=== PATIENT | female | born 1975 | race Caucasian/White ===

== ENCOUNTER 2020-02-14 10:50 | Outpatient (REF) | payer OTHER, SELFPAY ==
[2020-02-14 11:09] LABS: COVID-19 Test Negative (Negative)
== END 2020-02-14 10:51 | disposition home or self-care (01) ==
LOC: HO.LAB 10:50
PROVIDERS: Visit Provider Internal Medicine
DX: Z20.828 Contact with and (suspected) exposure to other viral communicable diseases (principal)
CPT/HCPCS: 87635

== ENCOUNTER 2020-02-20 10:56 | Outpatient (REF) | payer OTHER, SELFPAY ==
[2020-02-20 11:25] LABS: COVID-19 Test Negative (Negative)
== END 2020-02-20 10:57 | disposition home or self-care (01) ==
LOC: HO.LAB 10:56
PROVIDERS: Visit Provider Internal Medicine
DX: Z20.828 Contact with and (suspected) exposure to other viral communicable diseases (principal)
CPT/HCPCS: 87635

== ENCOUNTER 2020-02-24 12:46 | Outpatient (REF) | payer OTHER, SELFPAY ==
[2020-02-24 13:53] LABS: COVID-19 Test Negative (Negative)
== END 2020-02-24 12:47 | disposition home or self-care (01) ==
LOC: HO.LAB 12:46
PROVIDERS: PCP Internal Medicine; Visit Provider Internal Medicine
DX: Z20.828 Contact with and (suspected) exposure to other viral communicable diseases (principal)
CPT/HCPCS: 87635

== ENCOUNTER 2020-04-08 10:28 | Outpatient (REF) | payer OTHER, SELFPAY ==
[2020-04-08 10:48] LABS: COVID-19 Test Negative (Negative)
== END 2020-04-08 10:29 | disposition home or self-care (01) ==
LOC: HO.EMPCOV 10:28
PROVIDERS: Visit Provider Internal Medicine
DX: Z20.828 Contact with and (suspected) exposure to other viral communicable diseases (principal)
CPT/HCPCS: 87635; C9803

== ENCOUNTER 2020-05-12 10:24 | Outpatient (REF) | payer OTHER, SELFPAY ==
[2020-05-12 10:41] LABS: COVID-19 Test Negative (Negative); IDNOW Serial# 55D5AD1C
== END 2020-05-12 10:25 | disposition home or self-care (01) ==
LOC: HO.EMPCOV 10:24
PROVIDERS: Visit Provider Internal Medicine
DX: Z20.822 Contact with and (suspected) exposure to COVID-19 (principal)
CPT/HCPCS: 36415; 87635; C9803

== ENCOUNTER 2020-06-13 10:42 | Outpatient (REF) | payer OTHER, SELFPAY ==
[2020-06-13 11:17] LABS: MANUAL DIFF FLAG NO
[2020-06-13 11:19] LABS: Basophils Absolute Auto 0.1 X10*3/uL (0.0-0.2); Basophils Percent Auto 0.7 % (0-2); Eosinophils Absolute Auto 0.3 X10*3/uL (0.0-0.4); Hematocrit 43.5 % (37-47); Hemoglobin 14.9 g/dl (12.0-16.0); Imm Gran Abs Auto 0.02 X10*3/uL (0.00-0.03); Imm Gran Pct Auto 0.2 % (0.0-0.4); Lymphocytes Absolute Auto 1.9 X10*3/uL (1.2-4.9); Lymphocytes Percent Auto 23.9 % (20-40); Mean Corpuscular HGB Conc 34.3 g/dl (31.0-35.0); Mean Corpuscular Hemoglobin 30.8 pg (27.0-33.0); Mean Corpuscular Volume 89.9 fL (80-98); Monocytes Absolute Auto 0.4 X10*3/uL (0.1-1.2); Monocytes Percent Auto 5.5 % (2-11); Neutrophils Absolute Auto 5.3 X10*3/uL (2.0-8.3); Neutrophils Percent Auto 65.7 % (45-73); Platelet Count 302 X10*3/uL (160-400); Red Blood Count 4.84 X10*6/uL (4.20-5.50); Red Cell Distribution Width 13.4 % (11.0-16.0)
[2020-06-13 11:28] LABS: INTERNATIONAL NORM RATIO 1.1 (0.9-1.1); Prothrombin Time 12.7 SEC (10.8-13.0)
[2020-06-13 11:30] LABS: Partial Thromboplastin Time 38.9 SEC (24.1-38.0)
== END 2020-06-13 10:43 | disposition home or self-care (01) ==
LOC: HO.LAB 10:42
PROVIDERS: PCP Internal Medicine; Visit Provider Internal Medicine
DX: T14.8XXA Other injury of unspecified body region, initial encounter (principal)
CPT/HCPCS: 36415; 85025; 85610; 85730

== ENCOUNTER 2020-07-17 16:25 | Outpatient (REF) | payer OTHER, SELFPAY ==
--- NOTE | ~2020-07-17 | XR_ITS ---
EXAMINATION: XR ABDOMEN KUB CLINICAL INDICATION: Constipation COMPARISON: None TECHNIQUE: AP view of the abdomen. FINDINGS: There is stool throughout the colon suggestive of constipation. No dilated loops of bowel are seen. There is no evidence of free air. There are surgical clips in the right upper quadrant suggestive of previous cholecystectomy. There are small calcifications in the pelvis probably representing calcified phleboliths.. Bony structures are normal. XR/XR KUB IMPRESSION: Stool throughout the colon suggestive of constipation.
== END 2020-07-17 16:26 | disposition home or self-care (01) ==
LOC: HO.LAB 16:25
PROVIDERS: Visit Provider Physician Assistant Medical
DX: K59.00 Constipation, unspecified (principal); R10.9 Unspecified abdominal pain
CPT/HCPCS: 74018

== ENCOUNTER 2021-03-02 14:28 | Outpatient (REF) | payer OTHER, SELFPAY ==
[2021-03-02 15:05] LABS: COVID-19 Test Negative (Negative); IDNOW Serial# 9DD0AD1C
== END 2021-03-02 14:29 | disposition home or self-care (01) ==
LOC: HO.ED 14:28
PROVIDERS: Visit Provider Internal Medicine
DX: Z20.822 Contact with and (suspected) exposure to COVID-19 (principal)
CPT/HCPCS: 36415; 87635

== ENCOUNTER 2021-03-06 11:13 | Outpatient (REF) | payer OTHER, SELFPAY ==
[2021-03-06 12:53] LABS: Influenza A PCR NEGATIVE (Negative); Influenza B PCR NEGATIVE (Negative); Resp Syncy Virus RNA Qual PCR NEGATIVE (Negative); SARS COV2 PCR INHOUSE NEGATIVE (Negative)
== END 2021-03-06 11:14 | disposition home or self-care (01) ==
LOC: HO.LAB 11:13
PROVIDERS: Visit Provider Internal Medicine
DX: Z20.822 Contact with and (suspected) exposure to COVID-19 (principal)
CPT/HCPCS: 0241U; 36415

== ENCOUNTER 2021-03-24 13:07 | Outpatient (REF) | payer OTHER, SELFPAY ==
--- NOTE | ~2021-03-24 | XR_ITS ---
EXAMINATION: XR CHEST CLINICAL INFORMATION: Persistent cough. Asthma. COMPARISON: Previous chest x-ray July 2019 TECHNIQUE: 2 views of the chest were obtained. FINDINGS: No significant abnormality is noted involving the heart, lungs, mediastinum, bony thorax or soft tissues. XR/XR chest 2V IMPRESSION: Unremarkable examination.
== END 2021-03-24 13:08 | disposition home or self-care (01) ==
LOC: HO.XRAY 13:07
PROVIDERS: PCP Internal Medicine; Visit Provider Internal Medicine
DX: J32.9 Chronic sinusitis, unspecified (principal); R05.3 Chronic cough; R07.89 Other chest pain; R00.2 Palpitations; R53.82 Chronic fatigue, unspecified; G43.909 Migraine, unspecified, not intractable, without status migrainosus; R16.0 Hepatomegaly, not elsewhere classified; Z20.89 Contact with and (suspected) exposure to other communicable diseases; J45.909 Unspecified asthma, uncomplicated
CPT/HCPCS: 71046

== ENCOUNTER 2021-03-24 13:44 | Outpatient (REF) | payer OTHER, SELFPAY ==
[2021-03-24 13:50] LABS: MANUAL DIFF FLAG NO
[2021-03-24 13:57] LABS: Basophils Absolute Auto 0.1 X10*3/uL (0.0-0.2); Basophils Percent Auto 0.5 % (0-2); Eosinophils Absolute Auto 0.4 X10*3/uL (0.0-0.4); Eosinophils Percent Auto 3.7 % (0-4); Hematocrit 43.6 % (37.0-47.0); Hemoglobin 14.8 g/dl (12.0-16.0); Imm Gran Abs Auto 0.03 X10*3/uL (0.00-0.03); Imm Gran Pct Auto 0.3 % (0.0-0.4); Lymphocytes Absolute Auto 2.5 X10*3/uL (1.2-4.9); Lymphocytes Percent Auto 21.2 % (20-40); Mean Corpuscular HGB Conc 33.9 g/dl (31.0-35.0); Mean Corpuscular Hemoglobin 31.1 pg (27.0-33.0); Mean Corpuscular Volume 91.6 fL (80.0-98.0); Mean Platelet Volume 9.8 fL (9.4-12.3); Monocytes Absolute Auto 0.6 X10*3/uL (0.1-1.2); Monocytes Percent Auto 5.4 % (2-11); Neutrophils Absolute Auto 8.1 x10*3/uL (2.0-8.3); Neutrophils Percent Auto 68.9 % (45-73); Platelet Count 284 X10*3/uL (160-400); Red Blood Count 4.76 X10*6/uL (4.20-5.50); Red Cell Distribution Width 13.1 % (11.0-16.0); White Blood Count 11.8 X10*3/uL (4.8-10.8)
[2021-03-24 14:47] LABS: Alanine Aminotransferase 20 U/L (0-31); Alkaline Phosphatase 51 U/L (39-117); Anion Gap 13 (12-20); Aspartate Amino Transferase 19 U/L (5-31); Bilirubin Total 0.3 mg/dL (0.0-1.0); Blood Urea Nitrogen 25 mg/dL (9-16); C Reactive Protein 0.18 mg/dL (< or = 0.50); Carbon Dioxide 23 mmol/L (22-29); Chloride 108 mmol/L (96-108); Estimated Glomerular Filt Rate > 60; Glucose Random 92 mg/dL (60-115); Potassium 4.1 mmol/L (3.3-5.1); Sodium 140 mmol/L (135-145); Total Protein 6.5 g/dL (6.5-8.0)
[2021-03-24 15:08] LABS: Thyroid Stimulating Hormone 2.83 uIU/mL (0.32-4.0)
[2021-03-31 11:31] LABS: SARS COV2 IgG Negative (Negative)
== END 2021-03-24 13:45 | disposition home or self-care (01) ==
LOC: HO.LNP 13:44
PROVIDERS: Visit Provider Internal Medicine
DX: Z20.822 Contact with and (suspected) exposure to COVID-19 (principal); R07.89 Other chest pain; R00.2 Palpitations
CPT/HCPCS: 80053; 84443; 85025; 86140; 86769

== ENCOUNTER → 2021-04-05 09:51 | Outpatient (REF) | payer OTHER, SELFPAY ==
--- NOTE | 2021-04-05 09:56 | ECG_ITS ---
Hook-up date: 2021-04-05 11:11:00 Duration: 47:33:00 Test Indications: PALPITATIONS, CHEST PRESSURE Medications: [id number] QRS complexes 1 Ventricular ectopics which represent <1 % of total QRS comp. 1 Supraventricular ectopics which represent <1 % of total QRS comp. * Paced QRS complexs which represent % of total QRS comp. VENTRICULAR ECTOPY 1 Isolated 0 Bigeminal Cycles 0 Couplets 0 Runs 0 Beats in Runs * Beats LONGEST at * BPM at :: -- * Beats FASTEST at * BPM at :: -- SUPRAVENTRICULAR ECTOPY 1 Isolated 0 Couplets 0 Runs 0 Beats in Runs * Beats LONGEST at * BPM at :: -- * Beats FASTEST at * BPM at :: -- HEART RATES 50 MIN at 01:17:47 2021-04-06 73 AVG 128 MAX at 14:21:03 2021-04-05 LONGEST RR 1.5520 secs at 05:56:19 2021-04-06 S-T LEVELS Channel 1 - 128 mm at 11:11:00 2021-04-05 - 128 mm at 11:11:00 2021-04-05 Channel 2 - 128 mm at 11:11:00 2021-04-05 - 128 mm at 11:11:00 2021-04-05 Channel 3 - 128 mm at 03:03:01 -- - 128 mm at 03:03:01 Underlying rhythm is sinus; Average ventricular rate 73/min; range 50-128/min; No significant supraventricular or ventricular ectopy; No sustained arrhythmias; Patient did not report any symptoms in the diary Referred By: Meghan Terry Overread By: EFE PINO
--- NOTE | 2021-04-05 09:56 | CA_ITS ---
Acquisition Time: 2021-04-05 10:04:27 Total Exercise Time: 00:10:44 Test Indications: CP, SVT Medications: SEE CHART Protocol: EYAL Max HR: 179 BPM 103% of Pred: 173 BPM Max BP: 206/090 mmHG Max Work Load: 12.9 METS Exercise stress test with exercise 10 min 44 sec of Eyal protocol, with 2/10 mid chest pressure at baseline which she states is always there , her CP increased to 4/20 during stage 4 of exercise, with isolated PAC, with hypertensive response to exercise with max BP 206/90, with EKG changes that meet criteria for ischemia in stage 4 only while she was jogging ( horizontal ST depressions up to 1 mm V3-V6) , which corrects immediately in recovery. Artifact can't be ruled out. In recovery her CP returned to 2/10 and BP returned to 124/74. Test reviewed with Dr Hernandez. Report called to her PCP office and recommended stress echocardiogram for further evaluation, Referred By: Meghan Terry Overread By: NANY CH
== END ==
LOC: HO.CARD 09:51
PROVIDERS: Visit Provider Internal Medicine
DX: R07.89 Other chest pain (principal); R00.2 Palpitations
CPT/HCPCS: 93017; 93226

== ENCOUNTER 2021-04-20 15:44 | Outpatient (REF) | payer OTHER, SELFPAY ==
--- NOTE | 2021-04-20 | PFT_ITS ---
INDICATION: Asthma and cough. SPIROMETRY: The FEV1 to FVC of 89% with an FEV1 of 3.06 L, which is 94% predicted and an FVC of 3.45 L, which is 84% predicted. No significant response to bronchodilators noted. Maximum voluntary ventilation 89% predicted. LUNG VOLUMES: Total lung capacity 82% predicted with a residual volume of 65% predicted, and an expiratory reserve volume of 63% predicted. DIFFUSION CAPACITY: DLCO 81% predicted. COMPARISONS: None. INTERPRETATION: No obstructive nor restrictive ventilatory defects identified. No significant response to bronchodilators noted. Normal maximum voluntary ventilation. Lung volumes are low normal, so therefore occult interstitial lung conditions cannot be ruled out. In addition to that, the patient does have a low normal diffusion capacity. If asthma is in the differential, methacholine challenge may be helpful in assessing for hyper-reactive airways, otherwise clinical correlation warranted. Octavio Garcia MD MR/MODL / [id number]
== END 2021-04-20 15:45 | disposition home or self-care (01) ==
LOC: HO.RESP 15:44
PROVIDERS: PCP Internal Medicine; Visit Provider Internal Medicine
DX: R05.3 Chronic cough (principal); J45.909 Unspecified asthma, uncomplicated
CPT/HCPCS: 94060; 94727; 94729

== ENCOUNTER 2021-04-30 15:42 | Outpatient (REF) | payer OTHER, SELFPAY ==
[2021-04-30 16:07] LABS: COVID-19 Test Negative (Negative)
== END 2021-04-30 15:43 | disposition home or self-care (01) ==
LOC: HO.LAB 15:42
PROVIDERS: Visit Provider Internal Medicine
DX: Z20.822 Contact with and (suspected) exposure to COVID-19 (principal)
CPT/HCPCS: 36415; 87635

== ENCOUNTER → 2021-05-11 10:36 | Outpatient (REF) | payer OTHER, SELFPAY ==
--- NOTE | 2021-05-11 11:00 | CA_ITS ---
Acquisition Time: 2021-05-11 10:44:11 Total Exercise Time: 00:09:46 Test Indications: CP Medications: SEE CHART Protocol: EYAL Max HR: 171 BPM 98% of Pred: 173 BPM Max BP: 194/088 mmHG Max Work Load: 11.3 METS . Exercise stress test with exercise 9 min 46 sec of Eyal protocol, without anginal symptoms, with isolated PACs and atrial cuplets and triplets noted in recovery, one PVC, with normotensive response to exercise with max BP 194/88, with EKG changes noted during stage 4 of exercise that are suggesting of ischemia however can't rule out artifactual changes, without EKG changes meeting crtieria for ischemia at 29 sec of recovery or in remainder of recovery. Echo images obtained by tech at rest and immediately post peak exercise. Definity contrast used. Test reviewed with Dr Govea Referred By: Meghan Terry Overread By: NANY CH
== END ==
LOC: HO.CARD 10:36
PROVIDERS: Visit Provider Internal Medicine
DX: R07.89 Other chest pain (principal); R94.39 Abnormal result of other cardiovascular function study
CPT/HCPCS: 93350; Q9957

== ENCOUNTER → 2021-06-23 09:24 | Outpatient (BNVA) | payer OTHER, SELFPAY | PROVIDERS: PCP Internal Medicine; Visit Provider Internal Medicine Cardiovascular Disease | DX: E78.5 Hyperlipidemia, unspecified (principal); R07.9 Chest pain, unspecified | CPT/HCPCS: 93005 ==

== ENCOUNTER 2021-08-02 09:57 | Outpatient (REF) | payer OTHER, SELFPAY ==
[2021-08-02 11:17] LABS: Alanine Aminotransferase 21 U/L (0-31); Albumin Level 4.3 g/dL (3.5-5.0); Alkaline Phosphatase 49 U/L (39-117); Anion Gap 12 (12-20); Aspartate Amino Transferase 17 U/L (5-31); Bilirubin Total 0.7 mg/dL (0.0-1.0); Blood Urea Nitrogen 19 mg/dL (9-16); Calcium 9.6 mg/dL (8.4-10.2); Carbon Dioxide 26 mmol/L (22-29); Chloride 104 mmol/L (96-108); Cholesterol 256 mg/dL; Estimated Glomerular Filt Rate > 60; Glucose Random 84 mg/dL (60-115); HDL Cholesterol 66 mg/dL; LDL Cholesterol Calculated 179 mg/dl; Potassium 4.1 mmol/L (3.3-5.1); Sodium 138 mmol/L (135-145); Triglycerides 58 mg/dL
[2021-08-02 11:24] LABS: Thyroid Stimulating Hormone 2.63 uIU/mL (0.32-4.0)
== END 2021-08-02 09:58 | disposition home or self-care (01) ==
LOC: HO.LAB 09:57
PROVIDERS: PCP Internal Medicine; Visit Provider Student in an Organized Health Care Education/Training Program
DX: Z00.00 Encounter for general adult medical examination without abnormal findings (principal); R63.5 Abnormal weight gain
CPT/HCPCS: 36415; 80053; 80061; 84443

== ENCOUNTER 2021-08-16 11:02 | Outpatient (REF) | payer OTHER, SELFPAY ==
--- NOTE | ~2021-08-16 | MR_ITS ---
EXAMINATION: MR ABDOMEN WITHOUT AND WITH CONTRAST CLINICAL INFORMATION: Follow up hepatic adenoma. COMPARISON: MR abdomen dated from 05/17/2019. TECHNIQUE: MR abdomen was performed without and with use of 9 mL intravenous Gadavist gadolinium contrast. Postcontrast images are performed in multiphase dynamic sequences. Imaging was performed in 3 planes. FINDINGS: LUNG BASES: The visualized lung bases are unremarkable. LIVER, GALLBLADDER, AND BILIARY TREE: The liver is normal in size, shape and attenuation. Very small cysts in the hepatic dome (100:22) and right hepatic lobe (100:40) are unchanged. No new liver lesions. The gallbladder is not visualized and presumably surgically removed. There is stable mild dilatation of the CBD measuring up to 0.8 cm, which is expected in a postcholecystectomy state. There is no significant intrahepatic biliary ductal dilatation. PANCREAS: Unremarkable. SPLEEN: Normal. ADRENAL GLANDS: Normal. KIDNEYS AND URETERS: The kidneys are normal in size, shape, and enhance symmetrically. No hydronephrosis. No perinephric stranding. GASTROINTESTINAL TRACT: Imaged bowel is within normal limits. No ascites. ABDOMINAL WALL: No significant hernia is appreciated. LYMPH NODES: No lymphadenopathy. VASCULAR: Unremarkable. OSSEOUS STRUCTURES: Marrow signal normal. MR/MR abdomen wo/w con IMPRESSION: Stable examination when compared to 05/17/2019 with redemonstration of very small liver cysts.
== END 2021-08-16 11:03 | disposition home or self-care (01) ==
LOC: HO.MRI 11:02
PROVIDERS: Visit Provider Student in an Organized Health Care Education/Training Program
DX: D13.4 Benign neoplasm of liver (principal)
CPT/HCPCS: 74183; A9585

== ENCOUNTER 2021-12-06 10:52 | Outpatient (REF) | payer OTHER, SELFPAY ==
[2021-12-06 11:35] LABS: Appearance Urine CLEAR; Color Urine YELLOW; Glucose Urine UA NEG (NEG); Leukocyte Esterase Urine NEG (NEG); Nitrite Urine NEG (NEG); Urine Blood NEG (NEG); Urine Ketones NEG (NEG); Urine Protein NEG (NEG-TRACE)
[2021-12-06 11:47] LABS: COVID-19 Test Negative (Negative)
== END 2021-12-06 10:53 | disposition home or self-care (01) ==
LOC: HO.LAB 10:52
PROVIDERS: Visit Provider Physician Assistant Medical
DX: R09.89 Other specified symptoms and signs involving the circulatory and respiratory systems (principal); R30.0 Dysuria; Z20.822 Contact with and (suspected) exposure to COVID-19
CPT/HCPCS: 81003; 87635; C9803

== ENCOUNTER 2022-01-28 10:28 | Outpatient (REF) | payer OTHER, SELFPAY ==
[2022-01-28 12:30] LABS: MANUAL DIFF FLAG NO
[2022-01-28 12:36] LABS: Basophils Absolute Auto 0.1 X10*3/uL (0.0-0.2); Basophils Percent Auto 0.9 % (0-2); Eosinophils Absolute Auto 0.3 X10*3/uL (0.0-0.4); Eosinophils Percent Auto 3.3 % (0-4); Hematocrit 45.9 % (37.0-47.0); Hemoglobin 15.6 g/dl (12.0-16.0); Imm Gran Abs Auto 0.02 X10*3/uL (0.00-0.03); Imm Gran Pct Auto 0.2 % (0.0-0.4); Lymphocytes Absolute Auto 2.2 X10*3/uL (1.2-4.9); Lymphocytes Percent Auto 25.1 % (20-40); Mean Corpuscular Hemoglobin 30.5 pg (27.0-33.0); Mean Corpuscular Volume 89.6 fL (80.0-98.0); Mean Platelet Volume 9.9 fL (9.4-12.3); Monocytes Absolute Auto 0.6 X10*3/uL (0.1-1.2); Monocytes Percent Auto 6.7 % (2-11); Neutrophils Absolute Auto 5.7 x10*3/uL (2.0-8.3); Neutrophils Percent Auto 63.8 % (45-73); Platelet Count 379 X10*3/uL (160-400); Red Blood Count 5.12 X10*6/uL (4.20-5.50); Red Cell Distribution Width 13.6 % (11.0-16.0); White Blood Count 8.9 X10*3/uL (4.8-10.8)
[2022-01-28 12:41] LABS: Appearance Urine Clear; Color Urine Yellow; Glucose Urine UA Negative (Negative); Leukocyte Esterase Urine Negative (Negative); Nitrite Urine Negative (Negative); Specific Gravity - Urine 1.025 (1.005-1.025); Urine Blood Negative (Negative); Urine Ketones 15 mg/dL (Negative); Urine Protein Negative (Neg-Trace)
[2022-01-28 13:23] LABS: Alanine Aminotransferase 22 U/L (0-31); Albumin Level 4.2 g/dL (3.5-5.0); Alkaline Phosphatase 54 U/L (39-117); Anion Gap 16 (12-20); Aspartate Amino Transferase 23 U/L (5-31); Bilirubin Total 0.5 mg/dL (0.0-1.0); Blood Urea Nitrogen 15 mg/dL (9-16); Calcium 9.2 mg/dL (8.4-10.2); Carbon Dioxide 23 mmol/L (22-29); Chloride 103 mmol/L (96-108); Estimated Glomerular Filt Rate > 60; Glucose Random 74 mg/dL (60-115); Potassium 4.1 mmol/L (3.3-5.1); Sodium 138 mmol/L (135-145); Total Protein 6.8 g/dL (6.5-8.0)
== END 2022-01-28 10:29 | disposition home or self-care (01) ==
LOC: HO.LAB 10:28
PROVIDERS: Visit Provider Internal Medicine
DX: R39.9 Unspecified symptoms and signs involving the genitourinary system (principal); N39.0 Urinary tract infection, site not specified; R10.9 Unspecified abdominal pain
CPT/HCPCS: 36415; 80053; 81003; 85025; 87086

== ENCOUNTER 2022-02-17 17:50 | Outpatient (REF) | payer OTHER, SELFPAY ==
--- NOTE | ~2022-02-17 | MR_ITS ---
EXAMINATION: MR LUMBAR SPINE WITHOUT CONTRAST CLINICAL INFORMATION: 46-year-old with self-reported low back pain and right hip pain. Low back pain, lumbar radiculopathy. Self-reported remote history of disc herniation. COMPARISON: None. TECHNIQUE: MRI of the lumbar spine was obtained using routine sequences without contrast. FINDINGS: Coronal Alignment: Very slight thoracolumbar levocurvature noted, minimally convex to the left at L1-L2. Sagittal Alignment: Trace retrolisthesis at L5-S1. Otherwise normal lumbar alignment. Lumbosacral Junction: Normal. 5 [id number] lumbar-type vertebral bodies. Vertebral Bodies: Normal height. Disc Spaces and Endplates: Severe disc space height loss at L5-S1 noted with Schmorl's nodes, disc desiccation and spondylosis. Remaining lumbar vertebral discs demonstrate normal height and signal. Moderate disc space height loss noted anteriorly at T11-T12 with the anterior marginal spondylosis at this level. Spinal Canal: No abnormal developmental findings. Bone Marrow: Type I degenerative marrow signal change seen along the endplates anteriorly at L5-S1 and T11-T12. No suspicious marrow replacing process is identified. Conus Medullaris: Terminates at L1. Morphology and signal is normal. Intradural Nerve Roots: Within normal limits. L5-S1: Diffuse disc bulge and a small superimposed central to left paramedian disc herniation noted, with mild flattening of the ventral dural sac. No significant facet arthrosis, canal or neural foraminal stenosis. L4-L5: Tiny central disc protrusion noted with minimal indentation of the ventral thecal sac superimposed on minimal underlying disc bulging, with moderate bilateral facet arthrosis. No significant canal or neural foraminal stenosis. L3-L4: Small, shallow bilateral subarticular to foraminal disc protrusions without neural impingement and mild facet arthrosis noted bilaterally without canal or neural foraminal stenosis. L2-L3: Trace central disc protrusion noted. No facet arthrosis, canal or neural foraminal stenosis. L1-L2: Normal disc contour. No facet arthrosis, canal or neural foraminal stenosis. T12-L1: Small left paramedian disc herniation noted. No facet arthrosis, canal or neural foraminal stenosis. [id number] facet arthropathy right more than left at T11-T12. Paraspinal/Retroperitoneal: Visualized paravertebral soft tissues appear unremarkable. MR/MR lumbar spine wo con IMPRESSION: 1. Discogenic degenerative changes and spondylosis at L5-S1 and to a lesser degree at T11-T12, with the mild disc bulging and central disc herniation at L5-S1, minimal disc bulging and central disc protrusion at L4-L5, trace central disc protrusion L2-L3 and shallow bilateral subarticular to foraminal disc protrusions at L3-L4 without spinal canal stenosis or significant neural foraminal compromise. No neural impingement. 2. Multilevel bilateral facet arthropathy, as detailed above, most apparent at L4-L5 bilaterally.
== END 2022-02-17 17:51 | disposition home or self-care (01) ==
LOC: HO.MRI 17:50
PROVIDERS: Visit Provider Internal Medicine
DX: M54.16 Radiculopathy, lumbar region (principal); R20.2 Paresthesia of skin; R26.2 Difficulty in walking, not elsewhere classified
CPT/HCPCS: 72148

== ENCOUNTER 2022-03-23 12:39 | Outpatient (REF) | payer OTHER, SELFPAY ==
--- NOTE | ~2022-03-23 | MM_ITS ---
EXAMINATION: MM SCREENING DIGITAL BREAST TOMOSYNTHESIS, BILATERAL CLINICAL INFORMATION: Screening. Asymptomatic. The lifetime risk of breast cancer based on the Tyrer-Cuzick Model is 8.0%. COMPARISON: Mammography: May 22, 2018 and studies dating back to September 20, 2016. TECHNIQUE: Digital breast tomosynthesis is performed in both the craniocaudal and mediolateral oblique views along with computer-aided detection (CAD). Synthesized 2D images are generated from the tomosynthesis. FINDINGS: There are scattered areas of fibroglandular density (ACR BI-RADS breast composition Category b). There is a stable parenchymal pattern of the left breast. Within the inferior aspect of the right breast approximately 3 cm from nipple there is an 8 mm circumscribed density which may have been present previously. Spot compression view is recommended. About the upper outer aspect of the right breast there is a lobular density measuring approximately 5 mm in diameter not definitely seen previously and for which spot compression view is recommended. MM/MM tomosynthesis screening BI IMPRESSION: Right breast densities for further evaluation as described. ASSESSMENT: BI-RADS 0: Incomplete - Need Additional Imaging Evaluation RECOMMENDATION: 1. Additional views of the right breast 2. Targeted ultrasound if warranted after review of the additional views. 3. Radiology department staff will contact the patient for additional imaging. This patient's information was entered into a reminder system with a target due date for their next mammogram.
== END 2022-03-23 12:40 | disposition home or self-care (01) ==
LOC: HO.MAMMO 12:39
PROVIDERS: Visit Provider Internal Medicine
DX: Z12.31 Encounter for screening mammogram for malignant neoplasm of breast (principal)
CPT/HCPCS: 77063; 77067

== ENCOUNTER 2022-04-27 13:08 | Outpatient (REF) | payer OTHER, SELFPAY ==
--- NOTE | ~2022-04-27 | MM_ITS ---
EXAMINATION: MM DIAGNOSTIC DIGITAL BREAST TOMOSYNTHESIS, RIGHT US BREAST TARGETED, RIGHT CLINICAL INFORMATION: Two right breast densities. COMPARISON: Mammography: 03/23/2022 and studies dating back to 09/20/2016. TECHNIQUE: Digital breast tomosynthesis is performed. 2D images are generated from the tomosynthesis. The following views are obtained: Spot compression views in craniocaudal and mediolateral oblique views of the right breast. FINDINGS: There are scattered areas of fibroglandular density (ACR BI-RADS breast composition Category b). Within the anterior aspect of the right breast is a question of persistence of a partially circumscribed density measuring 6 x 7 x 4 mm in size approximately 3 cm from the nipple inferiorly. It is difficult to tell whether this may be overlying vessels and parenchyma. Adjacent to this there is a 3 mm well-circumscribed rounded density. About the upper outer aspect of the right breast there is persistence of an approximately 4 x 4 mm circumscribed density adjacent to a 3 mm rounded well-circumscribed density along a vessel approximately 6 cm from the nipple. Ultrasound of the right breast demonstrated a normal-appearing lymph node 11 o'clock position 8 cm from the nipple without cortical thickening or lobulation. At approximately the 9 o'clock position 3 cm from the nipple there are a few adjacent cysts without internal vasculature and with smooth back kirby and increased through sound transmission. These measure approximately 6 x 5 x 4 mm in size combined. There are a few other small scattered cysts present. About the inferior aspect of the right breast a few ducts were seen however no abnormal cystic or solid mass is seen and no region of abnormal distal sound shadowing was identified. Results are discussed with the patient at time of visit. Six-month follow-up right breast mammogram suggested. MM/MM tomosynthesis added views R IMPRESSION: Circumscribed density about the upper outer aspect of the right breast appear to correspond to cysts. Density about the anterior inferior aspect of the right breast does not have an ultrasound correlate and may be a parenchymal density rather than a true mass. Six-month follow-up right breast mammogram suggested to ensure stability. ASSESSMENT: BI-RADS 3: Probably Benign. RECOMMENDATION: Diagnostic mammography in 6 months. This patient's information was entered into a reminder system with a target due date for their next mammogram.
== END 2022-04-27 13:09 | disposition home or self-care (01) ==
LOC: HO.MAMMO 13:08
PROVIDERS: Visit Provider Internal Medicine
DX: R92.8 Other abnormal and inconclusive findings on diagnostic imaging of breast (principal)
CPT/HCPCS: 76642; 77061; 77065

== ENCOUNTER 2022-05-18 06:07 | Outpatient (REF) | payer OTHER, SELFPAY ==
--- NOTE | ~2022-05-18 | FL_ITS ---
EXAMINATION: XR FLUOROSCOPY WITH IMAGES CLINICAL INFORMATION: Spondylosis without myelopathy or radiculopathy lumbar region. COMPARISON: MR lumbar spine of 02/17/2022. TECHNIQUE: Fluoroscopy Supervised By: Dr. Kirt Montalvo. Fluoroscopy Time: 0.1 minutes. Cumulative Dose: 3.32 mGy. DAP: 0.542 Gycm2. Images: 2. FINDINGS: Imaging demonstrates 3 needles adjacent to the right facet joints at L4-S1. FL/FL guidance in treatment room IMPRESSION: Intraoperative fluoroscopy for pain management procedure.
== END 2022-05-18 06:08 | disposition home or self-care (01) ==
LOC: CF 06:07
PROVIDERS: Visit Provider Internal Medicine
DX: M47.816 Spondylosis without myelopathy or radiculopathy, lumbar region (principal)
CPT/HCPCS: 64493; 64494; J3301

== ENCOUNTER → 2022-05-20 11:35 | Outpatient (BNVA) | payer OTHER, SELFPAY | PROVIDERS: PCP Internal Medicine; Visit Provider Internal Medicine | DX: Z13.89 Encounter for screening for other disorder (principal) ==

== ENCOUNTER 2022-06-22 15:16 | Day surgery (SDC) | payer OTHER, SELFPAY ==
--- NOTE | ~2022-06-22 | FL_ITS ---
EXAMINATION: XR FLUOROSCOPY WITH IMAGES CLINICAL INFORMATION: L3, L4, and L5 medial branch radiofrequency ablation. COMPARISON: 05/22/2022. TECHNIQUE: Fluoroscopy Supervised By: Dr. Kirt Montalvo. Fluoroscopy Time: 0.3 minutes. Cumulative Dose: 7.04 mGy. DAP: 0.874 Gycm2. Images: 3. FINDINGS: Imaging demonstrates needles placed about the right lateral aspect of the L3-L4, L4-L5, and L5-S1 disc space levels. FL/FL guidance in OR IMPRESSION: Intraoperative fluoroscopy for pain management procedure.
[2022-06-22 11:27] VITALS: BP 165/95; PULSE 69; RESP 16; TEMP 36.4; O2SAT 99
[2022-06-22 11:31] VITALS: BMI 30.4
[2022-06-22 12:18] VITALS: BP 140/77; PULSE 62; RESP 16; TEMP 37; O2SAT 98
--- NOTE | 2022-06-22 12:57 | MHC.SHP ---
Pre-Procedural Eval Section A Date of Service: 06/22/22 The patient is an INPATIENT: No Changes since office visit: Yes Patient answered all questions The History & Physical has been completed within 30 days and I have reviewed it.: No Section B Chief Complaint: Spondylosis without myelopathy or radiculopathy, Relevant Family History (Specify if Yes): No Relevant Social History: Other (specify) Present Medications: see Short Stay Collaborative assessment Medical History: No relevant PMH History of Previous Operations: No relevant previous surgery Allergies: Allergies Allergy/AdvReac Type Severity Reaction Status Date / Time metoclopramide [From Reglan] Allergy Severe Anaphylaxis Verified 06/22/22 11:34 codeine [CODEINE] Allergy Unknown RASH Verified 06/22/22 11:34 gabapentin [GABAPENTIN] Allergy Unknown DIFFICULTY Verified 06/22/22 11:34 SWALLOWING ketamine [KETAMINE] Allergy Unknown COMBATIVE/A Verified 06/22/22 11:34 GITATION/DAMON LLUCIONATIO NS latex [LATEX] Allergy Unknown ANAPHYLAXIS Verified 06/22/22 11:34 magnesium [MAGNESIUM] Allergy Unknown MUSCLE Verified 06/22/22 11:34 SPASM prochlorperazine Allergy Unknown SEIZURE Verified 06/22/22 11:34 [From COMPAZINE] promethazine [From PHENERGAN] Allergy Unknown ANAPHYLAXIS Verified 06/22/22 11:34 scopolamine [SCOPOLAMINE] Allergy Unknown ANAPHYLAXIS Verified 06/22/22 11:34 Review of Systems Sugical H&P ROS: Negative: Constitution, Cardiovascular and Respiratory Exam Surgical H&P Exam: Normal: HEENT, Normal: Heart and Normal: Lungs Plan Diagnosis/Plan: Unchanged I have reviewed the history and physical and performed a pertinent physical examination on my patient. No changes have occurred unless specified. Time Spent With Patient Time: Total time managing care of this patient today ____ minutes.
--- NOTE | 2022-06-22 12:58 | PM.OP ---
Brief Operative Note Date of Service: 06/22/22 Pre-op diagnosis: Lumbar spondylosis Post-op diagnosis: same Procedure: Radiofrequency lesioning medial branch nerves, right L3, L4 medial branches and L5 dorsal ramus (L4/5 and L5/S1) (2 levels, 3 nerves) Implants: None Surgeon: Kirt Montalvo MD Anesthesia: local Was an Telephone Installer used for this Procedure?: No Estimated blood loss (mL): 1 Pathology: none sent Condition: stable Disposition: same day
--- NOTE | 2022-06-22 12:59 | W.PM.OPN ---
Operative Note Operative Note Date of Service: 06/22/22 Narrative: Radiofrequency lesioning medial branch nerves, Right L3, L4 medial branches and L5 dorsal ramus (L4/5 and L5/S1) (2 levels, 3 nerves) After obtaining written consent, pre-procedure blood pressure and heart rate were stable and recorded in the nursing record. The patient was placed in the prone position. The lumbar area was prepped with chloraprep and draped in sterile fashion. The skin over the target for each medial branch nerve was anesthetized with 0.5% lidocaine. An 18 gauge radiofrequency cannula was advanced to each target site under fluoroscopic guidance. No paresthesias were elicited with needle placement and aspiration was negative for heme and CSF. Impedences were verified under 600 ohms. Sensory testing (50 Hz) and then motor testing (2 Hz) confirmed needle placement at each site within the appropriate voltage thresholds. Each site was injected with 0.5 ml 2% preservative-free lidocaine. Radiofrequency lesioning was performed for 90 seconds at 80 deg Celcius. Each site was then injected with 0.5ml 0.5% ropivacaine. The needle was removed, skin cleansed and a sterile bandage was applied. The patient tolerated the procedure well and no complications were encountered. Following the procedure the patient's vital signs were stable. The patient was discharged home in good condition with post-procedural instructions. Time Out: Immediately prior to the procedure, the following was verbally confirmed that there is a signed consent form and that the correct patient, planned procedure, site and side are consistent with documentation and that necessary equipment and/or blood products are available prior to the start of the case. Complications: none EBL: <5 cc
== END 2022-06-22 15:21 | disposition home or self-care (01) ==
LOC: HO.SSS 15:16
PROVIDERS: PCP Internal Medicine; Visit Provider Internal Medicine
PROC: (CPT 64635; principal; 2022-06-22 11:30)
DX: M47.816 Spondylosis without myelopathy or radiculopathy, lumbar region (principal); M54.81 Occipital neuralgia; M51.36 Other intervertebral disc degeneration, lumbar region; R53.82 Chronic fatigue, unspecified; G43.709 Chronic migraine without aura, not intractable, without status migrainosus; Z79.899 Other long term (current) drug therapy; Z88.8 Allergy status to other drugs, medicaments and biological substances; Z91.040 Latex allergy status
CPT/HCPCS: 64635; 64636

== ENCOUNTER 2022-07-06 06:51 | Outpatient (REF) | payer OTHER, SELFPAY ==
--- NOTE | ~2022-07-06 | FL_ITS ---
EXAMINATION: XR FLUOROSCOPY WITH IMAGES CLINICAL INFORMATION: Spondylosis without myelopathy. COMPARISON: None available. TECHNIQUE: Fluoroscopy Supervised By: Shandra. FLUOROSCOPY TIME: 0.4 minutes. DLP: Cumulative Dose: 9.07 mGy-cm DAP: 1.36 Gy-cm2 FLUOROSCOPIC IMAGES: 4. FINDINGS: There are 4 digital images obtained revealing needle positioned adjacent to right L3-L4, L4-L5 L5-S1 facet joints with contrast opacifying the soft tissues. Visualized bones are grossly unremarkable. No aggressive lytic or sclerotic process seen. FL/FL guidance in treatment room IMPRESSION: Fluoroscopy was provided to referring physician for pain management.
== END 2022-07-06 06:52 | disposition home or self-care (01) ==
LOC: CF 06:51
PROVIDERS: Visit Provider Internal Medicine
DX: M47.816 Spondylosis without myelopathy or radiculopathy, lumbar region (principal)
CPT/HCPCS: 64493; 64494; 64495; J1040

== ENCOUNTER → 2022-07-29 08:31 | Outpatient (BNVA) | payer OTHER, SELFPAY | PROVIDERS: PCP Internal Medicine; Visit Provider Internal Medicine | DX: Z13.89 Encounter for screening for other disorder (principal) ==

== ENCOUNTER 2022-08-01 08:13 | Outpatient (REF) | payer OTHER, SELFPAY ==
--- NOTE | ~2022-08-01 | XR_ITS ---
EXAMINATION: XR HIP, RIGHT CLINICAL INFORMATION: Right hip pain COMPARISON: None available. TECHNIQUE: Two views of the right hip. Pelvis one view. FINDINGS: Right hip joint space is maintained. No evidence of acute fracture or dislocation. Mild acetabular roof sclerosis may reflect mild arthritis. Left hip joint space is maintained. Mild left acetabular roof sclerosis, possible mild arthritis. Mild-moderate symphysis pubis degeneration. SI joints are intact. No acute pelvic fractures seen. Phleboliths in the pelvis. No suspicious soft tissue calcification. XR/XR hip RT w [id number] IMPRESSION: Question mild bilateral hip joint arthritis. No evidence of acute fracture or dislocation.
[2022-08-01 09:19] LABS: Estimated Average Glucose 97 mg/dL
[2022-08-01 09:53] LABS: Alanine Aminotransferase 29 U/L (0-31); Albumin Level 4.3 g/dL (3.5-5.0); Alkaline Phosphatase 64 U/L (39-117); Anion Gap 12 (12-20); Aspartate Amino Transferase 19 U/L (5-31); Bilirubin Total 0.7 mg/dL (0.0-1.0); Blood Urea Nitrogen 17 mg/dL (9-16); Calcium 9.5 mg/dL (8.4-10.2); Carbon Dioxide 25 mmol/L (22-29); Chloride 105 mmol/L (96-108); Cholesterol 262 mg/dL; Estimated Glomerular Filt Rate > 60; Glucose Random 88 mg/dL (60-115); HDL Cholesterol 78 mg/dL; LDL Cholesterol Calculated 168 mg/dl; Potassium 4.2 mmol/L (3.3-5.1); Sodium 138 mmol/L (135-145); Total Protein 6.7 g/dL (6.5-8.0); Triglycerides 81 mg/dL
[2022-08-01 10:13] LABS: Thyroid Stimulating Hormone 2.57 uIU/mL (0.32-4.0)
== END 2022-08-01 08:14 | disposition home or self-care (01) ==
LOC: HO.LAB 08:13
PROVIDERS: Absent Provider Internal Medicine; PCP Internal Medicine; Visit Provider Internal Medicine
DX: Z00.00 Encounter for general adult medical examination without abnormal findings (principal); M25.551 Pain in right hip; E78.5 Hyperlipidemia, unspecified; E66.9 Obesity, unspecified; R79.9 Abnormal finding of blood chemistry, unspecified
CPT/HCPCS: 36415; 73502; 80053; 80061; 83036; 84443

== ENCOUNTER 2022-10-28 14:16 | Outpatient (REF) | payer OTHER, SELFPAY ==
--- NOTE | ~2022-10-28 | MM_ITS ---
EXAMINATION: MM DIAGNOSTIC DIGITAL BREAST TOMOSYNTHESIS, RIGHT CLINICAL INFORMATION: Follow-up probable benign nodular density anterior lower right breast, no ultrasound correlate. The lifetime risk of breast cancer based on the Tyrer-Cuzick Model is 8%. COMPARISON: Mammography: 04/27/2022, 03/23/2022 (BI-RADS 0); outside mammography 05/22/2018 ([place], [place]). Ultrasound right breast 04/27/2022. TECHNIQUE: Digital breast tomosynthesis is performed in both the craniocaudal and mediolateral oblique views along with computer-aided detection (CAD). Synthesized 2D images are generated from the tomosynthesis. FINDINGS: There are scattered areas of fibroglandular density (ACR BI-RADS breast composition Category b). The focal nodular asymmetry for follow-up anterior inferior right breast is slightly decreased from prior exam. There is no developing density or architectural abnormality. The cystic changes also noted upper outer right breast are decreased. No abnormal calcifications. The axilla and skin contours are unremarkable. Results are provided to the patient at time of visit by the technologist. MM/MM tomosynthesis diagnostic RT IMPRESSION: -Nodular asymmetry anterior inferior breast slightly decreased. -No developing density or architectural changes. ASSESSMENT: BI-RADS 3: Probably Benign RECOMMENDATION: Diagnostic mammography at time of annual bilateral exam, due in 6 months. This patient's information was entered into a reminder system with a target due date for their next mammogram.
== END 2022-10-28 14:17 | disposition home or self-care (01) ==
LOC: HO.MAMMO 14:16
PROVIDERS: PCP Internal Medicine; Visit Provider Internal Medicine
DX: R92.8 Other abnormal and inconclusive findings on diagnostic imaging of breast (principal)
CPT/HCPCS: 77061; 77065

== ENCOUNTER 2023-02-16 13:59 | Emergency (ER) | payer OTHER, SELFPAY ==
--- NOTE | ~2023-02-16 | XR_ITS ---
EXAMINATION: XR CHEST 2 VIEW CLINICAL INFORMATION: Covid positive, dyspnea on exertion COMPARISON: 03/24/2021 TECHNIQUE: PA and lateral views of the chest obtained. FINDINGS: The lungs are clear. There are no pleural effusions. The cardiomediastinal silhouette is normal. XR/XR chest 2V IMPRESSION: No acute cardiopulmonary disease.
[2023-02-16 14:14] VITALS: BP 135/102; PULSE 63; RESP 20; TEMP 36.1; O2SAT 98; BMI 26.6
[2023-02-16 14:22] VITALS: O2SAT 98
--- NOTE | 2023-02-16 14:28 | ED.GENADULT ---
HPI - General Adult General Chief complaint: Upper Respiratory Symptoms Stated complaint: isi cervantes Time Seen by Provider: 02/16/23 14:14 Source: patient Mode of arrival: ambulatory Limitations: no limitations History of Present Illness HPI narrative: Patient is a 47-year-old female presenting to the emergency department with multiple complaints since testing positive for Covid on 02/09/23. Most recently has developed dizziness, dyspnea on exertion, and nausea and vomiting overnight. Reports fevers with T-max of 103?. Has been taking Tylenol and Aleve for fever/body aches. Complains of generalized fatigue and body aches. Reports periumbilical abdominal pain which she describes as a burning, denies diarrhea or constipation. Denies current nausea. Describes dizziness as intermittent and as room spinning like I'm drunk. Took Zofran at home for nausea. States that she did not take Paxlovid at onset of symptoms. MD complaint: dizziness, dyspnea on exertion Onset (ago): day(s) Location: abdomen Radiation: non-radiation Severity: moderate Quality: burning Pain Consistency: constant Relieving factors: none Exacerbating factors: eating Associated symptoms: nausea/vomiting, shortness of breath and other (dizziness) Treatments prior to arrival: NSAID and other (zofran) Related Data Home Medications Medication Instructions Recorded Confirmed epinephrine 0.3 mg/0.3 mL IM DIRECTED 06/23/21 07/29/22 injection, auto-injector fluticasone propionate 50 1 spray intranasal DAILY 06/23/21 07/29/22 mcg/actuation nasal spray,suspension ondansetron 4 mg disintegrating 4 mg PO Q6H PRN migraine 06/23/21 07/29/22 tablet albuterol sulfate 90 mcg/actuation 2 puff inhalation Q4H PRN 04/15/22 07/29/22 aerosol inhaler lidocaine 5 % topical patch 1 patch topical DAILY PRN 04/15/22 07/29/22 rimegepant 75 mg disintegrating 75 mg PO Q OTHER DAY migraine 04/15/22 07/29/22 tablet (Nurtec ODT) sumatriptan succinate 100 mg 100 mg PO Q2-4H PRN 04/15/22 07/29/22 tablet (Imitrex) lorazepam 0.5 mg tablet 0.25 - 0.5 mg PO DAILY PRN panic 07/29/22 07/29/22 attack tizanidine 2 mg tablet 2 mg PO TID 07/29/22 07/29/22 Previous Rx's Medication Instructions Recorded amoxicillin 875 mg-potassium 1 tab PO BID #13 tabs 02/16/23 clavulanate 125 mg tablet fluconazole 150 mg tablet 150 mg PO Q3D 2 doses #2 tabs 02/16/23 Allergies Allergy/AdvReac Type Severity Reaction Status Date / Time ciprofloxacin Allergy Severe nerve Verified 07/29/22 08:39 damage metoclopramide [From Reglan] Allergy Severe Anaphylaxis Verified 07/29/22 08:39 codeine [CODEINE] Allergy Unknown RASH Verified 07/29/22 08:39 gabapentin [GABAPENTIN] Allergy Unknown DIFFICULTY Verified 07/29/22 08:39 SWALLOWING ketamine [KETAMINE] Allergy Unknown COMBATIVE/A Verified 07/29/22 08:39 GITATION/DAMON LLUCIONATIO NS latex [LATEX] Allergy Unknown ANAPHYLAXIS Verified 07/29/22 08:39 magnesium [MAGNESIUM] Allergy Unknown MUSCLE Verified 07/29/22 08:39 SPASM prochlorperazine Allergy Unknown SEIZURE Verified 07/29/22 08:39 [From COMPAZINE] promethazine [From PHENERGAN] Allergy Unknown ANAPHYLAXIS Verified 07/29/22 08:39 scopolamine [SCOPOLAMINE] Allergy Unknown ANAPHYLAXIS Verified 07/29/22 08:39 Review of Systems Review of Systems: As per HPI. Yes all other systems are reviewed and are negative Constitutional: Constitutional: Reports as per HPI [facility] Past Medical History Medical History (Updated 02/16/23 @ 17:53 by Mandi Ho NP) Asthma Lumbar facet joint syndrome Allergic rhinitis GERD (gastroesophageal reflux disease) Degeneration, intervertebral disc, lumbar Neck pain Abnormal brain scan Hepatocellular adenoma Herniated nucleus pulposus, L5-S1, left Stress incontinence in female Liver mass Myositis Migraine headache Anxiety Chronic fatigue Arthralgia Muscle pain Bilateral occipital neuralgia Low back pain Chronic migraine w/o aura w/o status migrainosus, not intractable Health care maintenance Chest pressure Persistent cough Palpitation Sinusitis Abnormal stress test UTI (urinary tract infection) Flank pain Surgical History History of ear surgery Hx of shoulder surgery Family History Family History Father No problems noted. Mother No problems noted. Paternal Grandmother CHF (congestive heart failure) Maternal Grandmother Afib Paternal Grandfather Myocardial infarct Social History Social History Patient Tobacco Use Status: Never used Tobacco Advance Directives: No Physical Exam ED Vital Signs: Vital Signs - 24 hr 02/16/23 14:14 02/16/23 14:22 02/16/23 17:35 Temperature 97.0 F 98.2 F Pulse Rate 63 65 Respiratory Rate 20 17 Blood Pressure 135/102 H 138/96 H Pulse Oximetry 98 98 100 Oxygen Delivery Method Room Air Room Air Room Air BMI result Body Mass Index 26.6 Vital signs have been reviewed and appear to be correct. Blood pressure elevated. Heart rate normal. Respiratory rate normal. Temperature normal. Oxygen saturation normal. Const General: cooperative, no acute distress, alert and awake Orientation/consciousness: oriented to person, oriented to place, oriented to time and patient oriented x3 Limitations: no limitations HENOR Head: Yes normocephalic and Yes atraumatic Ears: external ears normal, EAC's normal, mastoids normal bilaterally and TM abnormal wth effusion serous on the left and erythematous bilateral General nose exam: Normal external nose present Face and sinus: Yes face symmetric Mouth: Normal oral and palatal mucosa present, oropharynx normal and moist mucous membranes Throat: Yes posterior oropharynx normal and Yes uvula midline Eyes Pupils: Equal, round and reactive pupils present Neck Neck: Yes normal visual inspection and Yes supple Resp Effort & Inspection: normal respiratory effort and able to speak in complete sentences Auscultation: clear to auscultation bilaterally Cardio Rate: regular rate Rhythm: regular rhythm Heart sounds: S1 normal heart sound present and S2 normal heart sound present GI Inspection: Yes normal to inspection Palpation (GI): Soft to palpation, nontender, no guarding and No Rebound tenderness present Auscultation: normoactive bowel sounds General: Yes no CVA tenderness Back/Spine/Pelvis Back: no CVA tenderness Skin General skin exam: elasticity normal and turgor normal Neuro General: oriented to person, oriented to place, oriented to time, patient oriented x3, moves all extremities, no focal motor deficits and CN's II-XI intact bilaterally Cranial nerves: Yes Equal, round and reactive pupils present Cognition (Neuro): normal cognition Extrem General: Yes full ROM, Yes no pedal edema and Yes no calf tenderness Psych Mental Status: mental status grossly normal Affect: normal affect Thought process: Normal thought process present Medications Administered Discontinued Medications Generic Name Dose Route Start Last Admin Trade Name Claribel PRN Reason Stop Dose Admin Amoxicillin/Clavulanate Potassium 875 mg 02/16/23 15:50 02/16/23 16:17 Amoxicillin/Potassium Clav 875 Mg Tablet PO 02/16/23 15:51 875 mg ONCE ONE Administration Sodium Chloride 1,000 mls @ 999 mls/hr 02/16/23 14:45 02/16/23 16:29 Ns IV 02/16/23 15:45 Infused .Q1H1M ANDRA Infusion Sodium Chloride 1,000 mls @ 999 mls/hr 02/16/23 16:30 02/16/23 16:39 Ns IV 02/16/23 17:30 999 mls/hr .Q1H1M ANDRA Administration Medical Decision Making Medical Decision Making MDM Narrative: Patient is a 47-year-old female presenting to the emergency department with multiple complaints since testing positive for Covid on 02/09/23. On exam patient is awake, A+Ox3, VS WNL, afebrile, normal neurological exam without focal deficits, physical exam findings as above. Given reported symptoms and physical exam findings, initial differential includes pneumonia, gastritis, otitis media with effusion, BPPV. Do not suspect central cause such as ICH/CVA. Will order IV fluids, patient declining antiemetics at this time. X-ray chest notable for no acute abnormalities. My interpretation is in agreement with the radiologist's interpretation. Discussed with patient obtaining labs to rule out electrolyte abnormalities. Through shared decision making, patient declining labs at this time. Will give first dose of antibiotics for OM of left ear at this time and send prescription to pharmacy. Patient also requesting prescription for diflucan. Patient has received 2L of IV fluids and reports improvement in symptoms. Feel patient is stable for discharge home at this time. Prescriptions for Augmentin and Diflucan sent to pharmacy. Return precautions discussed at bedside. Instructed patient to follow-up with primary care provider. Patient verbalized understanding of and agreement with plan. Differential Diagnosis Differential Diagnoses: The differential diagnosis associated with the presentation includes As per MDM. Independent Interpretation I performed an independent interpretation of an: Plain X-Ray Interpretation: No evidence of pneumonia on x-ray Radiology Impression Discussion of test interpretation with radiology: I have reviewed the radiologist's reading. Radiologist Impression: XR/XR chest 2V IMPRESSION: No acute cardiopulmonary disease. External Record Review External record reviewed: Inpatient record, Office record and Outpatient record Tests considered The following testing was considered but not selected: Considered CBC, CMP which patient declined Prescription Management I considered prescription management with: Antibiotic and Other Discharge Plan Discharge Clinical Impression: COVID-19 Otitis media Qualifiers: Otitis media type: serous Chronicity: acute Laterality: left Recurrence: not specified as recurrent Qualified Code(s): H65.02 - Acute serous otitis media, left ear Patient Disposition: Home, Self-Care Instructions: Ear Infection (ED) Additional Instructions: You are being prescribed antibiotics for your infection, please complete the full course as prescribed. Return to the emergency department if you develop chest pain, worsening shortness of breath, persistent dizziness, severe headache, persistent vomiting, changes in vision, or any other concerning symptoms. Prescriptions: New amoxicillin-pot clavulanate 875-125 mg tablet 1 tab PO BID Qty: 13 0RF Rx Instructions: You were given the first dose today in the emergency department. fluconazole 150 mg tablet 150 mg PO Q3D Qty: 2 0RF Rx Instructions: may repeat second dose 72 hrs after first dose if symptoms persist No Action ondansetron 4 mg tablet,disintegrating 4 mg PO Q6H PRN (Reason: migraine) epinephrine 0.3 mg/0.3 mL auto-injector IM DIRECTED fluticasone propionate 50 mcg/actuation spray,suspension 1 spray intranasal DAILY lorazepam 0.5 mg tablet 0.25 - 0.5 mg PO DAILY PRN (Reason: panic attack) tizanidine 2 mg tablet 2 mg PO TID Nurtec ODT 75 mg tablet,disintegrating 75 mg PO Q OTHER DAY albuterol sulfate 90 mcg/actuation HFA aerosol inhaler 2 puff inhalation Q4H PRN lidocaine 5 % adhesive patch,medicated 1 patch topical DAILY PRN sumatriptan succinate [Imitrex] 100 mg tablet 100 mg PO Q2-4H PRN Rx Instructions: do not exceed 2 doses per 24 hrs
[2023-02-16] MEDS: 0.9 % Sodium Chloride 1,000 ML 999 ML IV ×2 (15:02→16:39)
[2023-02-16] MEDS: Amoxicillin/Potassium Clav 875 MG TABLET PO (16:17)
[2023-02-16 17:35] VITALS: BP 138/96; PULSE 65; RESP 17; TEMP 36.8; O2SAT 100
== END 2023-02-16 18:03 | disposition home or self-care (01) ==
PROVIDERS: Emergency Provider Emergency Medicine Emergency Medical Services; PCP Internal Medicine
DX: U07.1 COVID-19 (principal); H65.02 Acute serous otitis media, left ear; R50.9 Fever, unspecified; E78.5 Hyperlipidemia, unspecified; Z79.899 Other long term (current) drug therapy
CPT/HCPCS: 71046; 96360; 96361; 99284

== ENCOUNTER 2023-02-28 14:24 | Outpatient (REF) | payer OTHER, SELFPAY ==
[2023-02-28 14:59] LABS: MANUAL DIFF FLAG NO
[2023-02-28 15:47] LABS: Basophils Absolute Auto 0.1 X10*3/uL (0.0-0.2); Basophils Percent Auto 0.7 % (0-2); Eosinophils Absolute Auto 0.1 X10*3/uL (0.0-0.4); Eosinophils Percent Auto 1.7 % (0-4); Hematocrit 40.5 % (37.0-47.0); Hemoglobin 13.7 g/dl (12.0-16.0); Imm Gran Abs Auto 0.02 X10*3/uL (0.00-0.03); Imm Gran Pct Auto 0.3 % (0.0-0.4); Lymphocytes Absolute Auto 2.8 X10*3/uL (1.2-4.9); Lymphocytes Percent Auto 36.2 % (20-40); Mean Corpuscular HGB Conc 33.8 g/dl (31.0-35.0); Mean Corpuscular Hemoglobin 30.2 pg (27.0-33.0); Mean Corpuscular Volume 89.2 fL (80.0-98.0); Mean Platelet Volume 10.6 fL (9.4-12.3); Monocytes Absolute Auto 0.7 X10*3/uL (0.1-1.2); Monocytes Percent Auto 8.7 % (2-11); Neutrophils Percent Auto 52.4 % (45-73); Platelet Count 325 X10*3/uL (160-400); Red Blood Count 4.54 X10*6/uL (4.20-5.50); Red Cell Distribution Width 13.2 % (11.0-16.0); White Blood Count 7.6 X10*3/uL (4.8-10.8)
[2023-02-28 15:59] LABS: Alanine Aminotransferase 15 U/L (0-31); Albumin Level 4.1 g/dL (3.5-5.0); Alkaline Phosphatase 51 U/L (39-117); Anion Gap 14 (12-20); Aspartate Amino Transferase 17 U/L (5-31); Bilirubin Total 0.6 mg/dL (0.0-1.0); Blood Urea Nitrogen 17 mg/dL (9-16); Calcium 9.6 mg/dL (8.4-10.2); Carbon Dioxide 25 mmol/L (22-29); Chloride 104 mmol/L (96-108); Estimated Glomerular Filt Rate > 60; Glucose Random 85 mg/dL (60-115); Potassium 3.4 mmol/L (3.3-5.1); Sodium 140 mmol/L (135-145); Total Protein 6.7 g/dL (6.5-8.0)
== END 2023-02-28 14:25 | disposition home or self-care (01) ==
LOC: HO.LAB 14:24
PROVIDERS: Visit Provider Nurse Practitioner Acute Care
DX: Z00.00 Encounter for general adult medical examination without abnormal findings (principal); U09.9 Post COVID-19 condition, unspecified
CPT/HCPCS: 36415; 80053; 83735; 85025

== ENCOUNTER 2023-05-05 13:04 | Outpatient (REF) | payer OTHER, SELFPAY | END 2023-05-05 13:05 | disposition home or self-care (01) | LOC: HO.MAMMO 13:04 | PROVIDERS: PCP Internal Medicine; Visit Provider Internal Medicine | DX: R92.2 Inconclusive mammogram (principal) | CPT/HCPCS: 77062; 77066 ==

== ENCOUNTER → 2023-05-05 13:30 | Outpatient (BNV) | payer OTHER, SELFPAY | PROVIDERS: PCP Internal Medicine; Visit Provider Radiology Diagnostic Radiology | DX: R92.8 Other abnormal and inconclusive findings on diagnostic imaging of breast (principal) | CPT/HCPCS: 77062; 77066 ==

== ENCOUNTER 2023-08-22 08:37 | Outpatient (REF) | payer OTHER, SELFPAY ==
[2023-08-22 08:50] LABS: MANUAL DIFF FLAG NO
[2023-08-22 09:22] LABS: Basophils Absolute Auto 0.1 X10*3/uL (0.0-0.2); Basophils Percent Auto 1.3 % (0-2); Eosinophils Absolute Auto 0.2 X10*3/uL (0.0-0.4); Eosinophils Percent Auto 4.2 % (0-4); Hematocrit 45.7 % (37.0-47.0); Hemoglobin 15.3 g/dl (12.0-16.0); Imm Gran Abs Auto 0.02 X10*3/uL (0.00-0.03); Imm Gran Pct Auto 0.4 % (0.0-0.4); Lymphocytes Absolute Auto 1.7 X10*3/uL (1.2-4.9); Lymphocytes Percent Auto 32.3 % (20-40); Mean Corpuscular HGB Conc 33.5 g/dl (31.0-35.0); Mean Corpuscular Hemoglobin 30.5 pg (27.0-33.0); Mean Platelet Volume 9.8 fL (9.4-12.3); Monocytes Absolute Auto 0.4 X10*3/uL (0.1-1.2); Neutrophils Absolute Auto 2.9 x10*3/uL (2.0-8.3); Neutrophils Percent Auto 54.8 % (45-73); Platelet Count 288 X10*3/uL (160-400); Red Blood Count 5.02 X10*6/uL (4.20-5.50); Red Cell Distribution Width 13.2 % (11.0-16.0); White Blood Count 5.3 X10*3/uL (4.8-10.8)
[2023-08-22 09:31] LABS: Estimated Average Glucose 94 mg/dL; Hemoglobin A1c % 4.9 % (<6.0)
[2023-08-22 10:15] LABS: Alanine Aminotransferase 23 U/L (0-31); Albumin Level 4.1 g/dL (3.5-5.0); Alkaline Phosphatase 55 U/L (39-117); Anion Gap 8 (12-20); Aspartate Amino Transferase 21 U/L (5-31); Bilirubin Total 0.4 mg/dL (0.0-1.0); Blood Urea Nitrogen 18 mg/dL (9-16); Calcium 9.2 mg/dL (8.4-10.2); Carbon Dioxide 31 mmol/L (22-29); Chloride 108 mmol/L (96-108); Cholesterol 194 mg/dL (<200); Estimated Glomerular Filt Rate > 60; Glucose Random 76 mg/dL (60-115); HDL Cholesterol 58 mg/dL (>40); LDL Cholesterol Calculated 123 mg/dL (<100); Potassium 3.9 mmol/L (3.3-5.1); Sodium 143 mmol/L (135-145); Total Protein 6.8 g/dL (6.5-8.0); Triglycerides 68 mg/dL (<150)
[2023-08-22 10:33] LABS: Thyroid Stimulating Hormone 2.47 uIU/mL (0.32-4.0); Vitamin D 25-OH Total 47.9 ng/mL (>30)
== END 2023-08-22 08:38 | disposition home or self-care (01) ==
LOC: HO.LAB 08:37
PROVIDERS: PCP Internal Medicine; Visit Provider Internal Medicine
DX: Z00.00 Encounter for general adult medical examination without abnormal findings (principal); E66.9 Obesity, unspecified; E78.5 Hyperlipidemia, unspecified; J45.909 Unspecified asthma, uncomplicated; D13.4 Benign neoplasm of liver; E55.9 Vitamin D deficiency, unspecified; Z79.899 Other long term (current) drug therapy
CPT/HCPCS: 36415; 80053; 80061; 82306; 83036; 84443; 85025

== ENCOUNTER 2023-09-11 10:43 | Outpatient (REF) | payer OTHER, SELFPAY ==
--- NOTE | ~2023-09-11 | MR_ITS ---
EXAMINATION: MR ABDOMEN WITHOUT AND WITH CONTRAST CLINICAL INFORMATION: History of 5 mm lesion superior right hepatic lobe. COMPARISON: MRI of the abdomen from 05/17/2019 and 08/16/2021. TECHNIQUE: MR abdomen was performed without and with use of 7.5 mL intravenous Gadavist contrast. Postcontrast images are performed in multiphase dynamic sequences. Imaging was performed in 3 planes. FINDINGS: LUNG BASES: Normal. No pulmonary consolidation or pleural effusion. LIVER: Liver has normal size, contour and parenchymal signal. No evidence of cirrhotic morphology or steatosis. A very small 0.3 cm T2 hyperintense focus at the hepatic dome appears to represent a cyst and this is unchanged in size compared to 05/17/2019 (image 4, series 8). Also, there is a very small T2 hyperintense focus in the posterosuperior right hepatic lobe that does not enhance on postcontrast imaging consistent with a cystic focus, unchanged compared to 08/16/2021. No interval development of a suspicious liver lesion. GALLBLADDER AND BILIARY TREE: Gallbladder surgically absent. No dilated bile ducts. Common bile duct is 0.4 cm diameter. No evidence of ductal stricture or choledocholithiasis. PANCREAS: Normal. No edema, pancreatic ductal dilatation or mass. SPLEEN: Normal. ADRENAL GLANDS: Normal. KIDNEYS: Kidneys are normal in size and enhance symmetrically. No renal mass, hydronephrosis or perinephric edema. BOWEL AND PERITONEUM: Stomach is unremarkable. No dilated loops of bowel. No bowel wall thickening or mesenteric fat stranding. No abdominal free fluid. VASCULATURE: Abdominal aorta is normal in caliber and its branches are widely patent. Inferior vena cava is normal. LYMPH NODES: No pathologic sized lymph nodes in the abdomen. SKELETAL: Unremarkable. MR/MR abdomen wo/w con IMPRESSION: There are no significant imaging findings within the abdomen in this patient who is status post cholecystectomy. No interval development of a suspicious liver lesion.
[2023-09-11] MEDS: gadobutroL 7.5 ML VIAL IVPUSH (12:55)
== END 2023-09-11 10:44 | disposition home or self-care (01) ==
LOC: HO.MRI 10:43
PROVIDERS: PCP Internal Medicine; Visit Provider Internal Medicine
DX: D13.4 Benign neoplasm of liver (principal)
CPT/HCPCS: 74183; A9585

== ENCOUNTER 2023-11-30 08:50 | Outpatient (REF) | payer OTHER, SELFPAY ==
[2023-11-30 08:59] LABS: MANUAL DIFF FLAG NO
[2023-11-30 09:47] LABS: Basophils Absolute Auto 0.1 X10*3/uL (0.0-0.2); Basophils Percent Auto 1.1 % (0-2); Eosinophils Absolute Auto 0.2 X10*3/uL (0.0-0.4); Eosinophils Percent Auto 3.6 % (0-4); Hematocrit 44.1 % (37.0-47.0); Hemoglobin 15.1 g/dl (12.0-16.0); Imm Gran Abs Auto 0.01 X10*3/uL (0.00-0.03); Imm Gran Pct Auto 0.2 % (0.0-0.4); Lymphocytes Absolute Auto 1.8 X10*3/uL (1.2-4.9); Lymphocytes Percent Auto 33.9 % (20-40); Mean Corpuscular HGB Conc 34.2 g/dl (31.0-35.0); Mean Corpuscular Hemoglobin 31.3 pg (27.0-33.0); Mean Corpuscular Volume 91.3 fL (80.0-98.0); Monocytes Absolute Auto 0.4 X10*3/uL (0.1-1.2); Monocytes Percent Auto 7.2 % (2-11); Neutrophils Absolute Auto 2.8 x10*3/uL (2.0-8.3); Platelet Count 301 X10*3/uL (160-400); Red Blood Count 4.83 X10*6/uL (4.20-5.50); Red Cell Distribution Width 12.8 % (11.0-16.0); White Blood Count 5.3 X10*3/uL (4.8-10.8)
[2023-11-30 10:14] LABS: Alanine Aminotransferase 32 U/L (0-31); Albumin Level 4.4 g/dL (3.5-5.0); Alkaline Phosphatase 53 U/L (39-117); Anion Gap 12 (12-20); Aspartate Amino Transferase 26 U/L (5-31); Bilirubin Total 0.5 mg/dL (0.0-1.0); Blood Urea Nitrogen 20 mg/dL (9-16); Calcium 9.5 mg/dL (8.4-10.2); Carbon Dioxide 28 mmol/L (22-29); Chloride 107 mmol/L (96-108); Estimated Glomerular Filt Rate > 60; Glucose Random 93 mg/dL (60-115); Potassium 3.8 mmol/L (3.3-5.1); Sodium 143 mmol/L (135-145); Total Protein 6.9 g/dL (6.5-8.0)
[2023-11-30 10:33] LABS: Thyroid Stimulating Hormone 2.33 uIU/mL (0.32-4.0)
[2023-11-30 10:56] LABS: Vitamin B12 1100 pg/mL (200-900)
== END 2023-11-30 08:51 | disposition home or self-care (01) ==
LOC: HO.LAB 08:50
PROVIDERS: PCP Internal Medicine; Visit Provider Internal Medicine
DX: E66.9 Obesity, unspecified (principal); R40.0 Somnolence; R53.83 Other fatigue; Z72.820 Sleep deprivation
CPT/HCPCS: 36415; 80053; 82607; 84443; 85025

== ENCOUNTER 2023-12-08 11:19 | Outpatient (AMB) | payer OTHER, SELFPAY ==
--- NOTE | 2023-12-08 11:24 | MHC.OFFVIS ---
Vital Signs 12/08/23 11:30 Height 5 ft 8 in Weight 165 lb 12.602 oz BMI 25.2 BP 128/76 Blood Pressure Location Lt brachial Position Sitting Pulse 68 Pulse Source Pulse Oximeter Pulse Oximetry (%) 99 Oxygen Delivery Method Room Air Intake Visit Reasons: Colonoscopy screening Intake Note: Shira presents in office today for a scheduled initial assessment. CC: Pt is here to discuss a potential colo s/p. Pt reports that they have no prior hx of colo s/p. Pt was referred by PCP based on family hx of colo cancer (paternal grandfather). Pt denies any sx or additional concerns at this time. Dentist Attendant Required: No Allergies ciprofloxacin Allergy (Severe, Verified 12/08/23 11:25) nerve damage metoclopramide [From Reglan] Allergy (Severe, Verified 12/08/23 11:25) Anaphylaxis codeine [CODEINE] Allergy (Unknown, Verified 12/08/23 11:25) RASH gabapentin [GABAPENTIN] Allergy (Unknown, Verified 12/08/23 11:25) DIFFICULTY SWALLOWING ketamine [KETAMINE] Allergy (Unknown, Verified 12/08/23 11:25) COMBATIVE/AGITATION/HALLUCIONATIONS latex [LATEX] Allergy (Unknown, Verified 12/08/23 11:25) ANAPHYLAXIS magnesium [MAGNESIUM] Allergy (Unknown, Verified 12/08/23 11:25) MUSCLE SPASM prochlorperazine [From COMPAZINE] Allergy (Unknown, Verified 12/08/23 11:25) SEIZURE promethazine [From PHENERGAN] Allergy (Unknown, Verified 12/08/23 11:25) ANAPHYLAXIS scopolamine [SCOPOLAMINE] Allergy (Unknown, Verified 12/08/23 11:25) ANAPHYLAXIS HPI HPI Colonoscopy screening: Details: 48 year old? female hyperlipidemia, sacral iliac joint disease, on Mounjaro is here today for pre colonoscopy screening.? Patient was sent to us by her PCP.? This is her first colonoscopy screening.? Paternal grandfather diagnosed with CRC. Patient denies any gastrointestinal symptoms in the past or at present.? Denies history of difficulty with sedation or anesthesia in the past.? Negative for history of sleep apnea.? Denies any history of cardiac, renal, pulmonary, or hepatic disease.?? No history of infectious? diseases like hepatitis A, B, C, HIV or tuberculosis.? Patient is not on any anticoagulation [facility] Medical History Asthma Lumbar facet joint syndrome Allergic rhinitis GERD (gastroesophageal reflux disease) Degeneration, intervertebral disc, lumbar Neck pain Abnormal brain scan Hepatocellular adenoma Herniated nucleus pulposus, L5-S1, left Stress incontinence in female Liver mass Myositis Migraine headache Anxiety Chronic fatigue Arthralgia Muscle pain Bilateral occipital neuralgia Low back pain Chronic migraine w/o aura w/o status migrainosus, not intractable Health care maintenance Chest pressure Persistent cough Palpitation Sinusitis Abnormal stress test UTI (urinary tract infection) Flank pain Surgical History History of ear surgery Hx of shoulder surgery Family History Father No problems noted. Mother No problems noted. Paternal Grandmother CHF (congestive heart failure) Maternal Grandmother Afib Paternal Grandfather Myocardial infarct Social History Patient Tobacco Use Status: Never used Tobacco Review of Systems Const Denies weight gain and Denies weight loss ENT Reports no additional complaints, Denies dysphagia and Denies odynophagia Card Reports no additional complaints Resp Reports no additional complaints GI Denies abdominal pain, Denies belching, Denies melena, Denies bloating, Denies change in bowel habits, Denies dysphagia, Denies excessive flatus, Denies dyspepsia, Denies heartburn, Denies diarrhea, Denies loose stools, Denies nausea, Denies odynophagia and Denies vomiting Musc Reports no additional complaints Neuro Reports no additional complaints Psych Reports no additional complaints Endo Reports no additional complaints Physical Exam Vital Signs: Last Vital Signs Pulse 68 12/08/23 11:30 BP 128/76 12/08/23 11:30 Pulse Ox 99 12/08/23 11:30 Oxygen Delivery Method Room Air 12/08/23 11:30 BMI result Body Mass Index 25.2 Const General: healthy appearing, no acute distress and well developed Nutritional Appearance: well nourished Orientation/consciousness: patient oriented x3 Resp Effort & Inspection: normal respiratory effort, able to speak in complete sentences, no tracheal deviation and symmetric chest movement Auscultation: clear to auscultation bilaterally Cardio Rate: regular rate GI Inspection: Yes normal to inspection and No distended Palpation (GI): Soft to palpation, not firm, nontender and No hepatosplenomegaly present Auscultation: normal bowel sounds General: Yes no CVA tenderness Back/Spine/Pelvis Back: no CVA tenderness Skin General skin exam: elasticity normal, turgor normal and dry skin Neuro General: patient oriented x3 Psych Appearance: grossly normal Mental Status: mental status grossly normal Assessment & Plan Assessment & Plan (1) Screen for colon cancer: Code(s): Z12.11 - Encounter for screening for malignant neoplasm of colon Plan Patient denies any GI, cardiac or respiratory symptoms.? Denies any issues with anesthesia in the past.? Denies any history of sleep apnea.? No history infectious diseases in the past or present.? Not on any anticoagulation therapy.? Family history of CRC. Patient is on Mounjaro for weight loss. Patient denies any adverse symptoms.? Patient denies melena, hematochezia, unintentional weight loss or ribbon like stools.? Discussed at length the pre-procedure,? prep, diet & medications as well as what to expect prior, during and after the procedure.?? Stressed the importance of good bowel prep.? Recommended the use of Vaseline or Calmoseptine OTC & baby wipes with bowel movements to promote comfort.? ?Patient verbalizes understanding and agrees to plan of care.? She was given the opportunity to ask questions and all questions answered.? We will see her after the procedure.? Orders: Referrals Sleep Medicine Referral Z01.89 - Encounter for other specified special examinations Medications: New polyethylene glycol 3350 (Miralax) As directed by gastroenterology department at [facility] 238 grams PO ONCE 238 grams 0RF Z12.11 - Encounter for screening for malignant neoplasm of colon Coding Level of Care Code New Pt Level 3 (21980) Diagnoses Screen for colon cancer Z12.11 Time Spent (min) 40 Comment 30 minutes spent with patient and additional 10 minutes spent reviewing her records
[2023-12-08 11:30] VITALS: BP 128/76; PULSE 68; O2SAT 99; BMI 25.2
== END 2023-12-08 12:24 | disposition home or self-care (01) ==
PROVIDERS: PCP Internal Medicine; Visit Provider Nurse Practitioner Family
DX: Z01.818 Encounter for other preprocedural examination (principal); Z12.11 Encounter for screening for malignant neoplasm of colon; Z80.0 Family history of malignant neoplasm of digestive organs
CPT/HCPCS: S0285

== ENCOUNTER → 2023-12-08 11:19 | Outpatient (BNVA) | payer OTHER, SELFPAY | PROVIDERS: PCP Internal Medicine; Visit Provider Nurse Practitioner Family ==

== ENCOUNTER → 2024-03-21 09:38 | Outpatient (REF) | payer OTHER, SELFPAY | LOC: HO.SL 09:38 | PROVIDERS: PCP Internal Medicine; Visit Provider Nurse Practitioner Family | DX: R40.0 Somnolence (principal); R53.83 Other fatigue | CPT/HCPCS: 95806 ==

== ENCOUNTER → 2024-03-21 09:48 | Outpatient (BNV) | payer OTHER, SELFPAY | PROVIDERS: PCP Internal Medicine; Visit Provider Internal Medicine | DX: R06.83 Snoring (principal); R40.0 Somnolence | CPT/HCPCS: 95806 ==

== ENCOUNTER 2024-04-04 10:31 | Day surgery (SDC) | payer OTHER, SELFPAY ==
[2024-04-02 15:06] VITALS: BMI 25.2
--- NOTE | 2024-04-03 10:31 | HO.ANESPROP2 ---
Documented by User: Tiara Aguilar NP 04/03/24 10:32 HPI - Anesthesia Eval Consult details Narrative: 48yo F for Colonoscopy Anesthesia Pre-Procedure Meds Is the patient on any of the following meds?: GLP1/DPP4 PMFSH Active Problems Active Problems: All Active Problems COVID-19 (Acute) Right hip pain (Acute) Sacroiliac joint dysfunction (Acute) Hyperlipidemia (Acute) Lumbar facet joint syndrome (Acute) Past Medical History Medical History (Updated 04/02/24 @ 14:56 by Selena Still RN) Asthma Lumbar facet joint syndrome Allergic rhinitis GERD (gastroesophageal reflux disease) Degeneration, intervertebral disc, lumbar Hepatocellular adenoma Herniated nucleus pulposus, L5-S1, left Stress incontinence in female Liver mass Myositis Migraine headache Anxiety Chronic fatigue Arthralgia Muscle pain Bilateral occipital neuralgia Low back pain Chronic migraine w/o aura w/o status migrainosus, not intractable Palpitation UTI (urinary tract infection) Family History Family History Father No problems noted. Mother No problems noted. Paternal Grandmother CHF (congestive heart failure) Maternal Grandmother Afib Paternal Grandfather Myocardial infarct Surgical History Surgical History (Updated 04/03/24 @ 11:01 by Latonya Mcfarlane RN) Hx of hysterectomy History of radiofrequency ablation (RFA) of nerve of lumbar spine History of ear surgery Hx of shoulder surgery Social History Social History Patient Tobacco Use Status: Never used Tobacco Advance Directives: No Advance Directives Information Provided: Yes Meds Allergies Allergy/AdvReac Type Severity Reaction Status Date / Time ciprofloxacin Allergy Severe nerve Verified 12/08/23 11:25 damage latex [LATEX] Allergy Severe ANAPHYLAXIS Verified 04/02/24 14:59 metoclopramide [From Reglan] Allergy Severe Anaphylaxis Verified 12/08/23 11:25 prochlorperazine Allergy Severe SEIZURE Verified 04/02/24 14:59 [From COMPAZINE] promethazine [From PHENERGAN] Allergy Severe ANAPHYLAXIS Verified 04/02/24 14:59 scopolamine [SCOPOLAMINE] Allergy Severe ANAPHYLAXIS Verified 04/02/24 14:59 codeine [CODEINE] Allergy Intermediate RASH Verified 04/02/24 14:59 gabapentin [GABAPENTIN] Allergy Intermediate DIFFICULTY Verified 04/02/24 14:59 SWALLOWING ketamine [KETAMINE] Allergy Intermediate COMBATIVE/A Verified 04/02/24 14:59 GITATION/DAMON LLUCIONATIO NS magnesium [MAGNESIUM] Allergy Intermediate MUSCLE Verified 04/02/24 14:59 SPASM Home Medications ?Medication ?Instructions ?Recorded ?Confirmed ?Last Taken ?Type fluticasone propionate 50 1 spray intranasal DAILY 06/23/21 04/02/24 Unknown History mcg/actuation nasal spray,suspension albuterol sulfate 90 mcg/actuation 2 puff inhalation Q4H PRN 04/15/22 04/02/24 Unknown History aerosol inhaler Shortness Of Breath rimegepant 75 mg disintegrating 75 mg PO Q OTHER DAY migraine 04/15/22 04/02/24 Unknown History tablet (Nurtec ODT) sumatriptan succinate 100 mg 100 mg PO Q2-4H PRN Migraine 04/15/22 04/02/24 Unknown History tablet (Imitrex) Headache lorazepam 0.5 mg tablet 0.25 - 0.5 mg PO DAILY PRN panic 07/29/22 04/02/24 Unknown History attack tizanidine 2 mg tablet 2 mg PO TID 07/29/22 04/02/24 Unknown History tirzepatide 5 mg/0.5 mL 5 mg subcut QWEEK 12/08/23 04/02/24 03/23/24 History subcutaneous pen injector (Mounjovannyro) Exam Height,Weight and Vital Signs: Height 5 ft 8 in Weight 75.296 kg Assessment and Plan Assessment Anesthesia Assessment: Chart Reviewed Documented by User: Arsalan Rivas MD 04/04/24 12:14 [facility] Past Medical History Medical History (Updated 04/02/24 @ 14:56 by Selena Still RN) Asthma Lumbar facet joint syndrome Allergic rhinitis GERD (gastroesophageal reflux disease) Degeneration, intervertebral disc, lumbar Hepatocellular adenoma Herniated nucleus pulposus, L5-S1, left Stress incontinence in female Liver mass Myositis Migraine headache Anxiety Chronic fatigue Arthralgia Muscle pain Bilateral occipital neuralgia Low back pain Chronic migraine w/o aura w/o status migrainosus, not intractable Palpitation UTI (urinary tract infection) Family History Family History Father No problems noted. Mother No problems noted. Paternal Grandmother CHF (congestive heart failure) Maternal Grandmother Afib Paternal Grandfather Myocardial infarct Family history of problems with anesthesia: No Surgical History Surgical History (Updated 04/03/24 @ 11:01 by Latonya Mcfarlane RN) Hx of hysterectomy History of radiofrequency ablation (RFA) of nerve of lumbar spine History of ear surgery Hx of shoulder surgery History of Problems with Anesthesia: Yes (PONV) Social History Social History Patient Tobacco Use Status: Never used Tobacco Advance Directives: No Advance Directives Information Provided: Yes Meds Allergies Allergy/AdvReac Type Severity Reaction Status Date / Time ciprofloxacin Allergy Severe nerve Verified 12/08/23 11:25 damage latex [LATEX] Allergy Severe ANAPHYLAXIS Verified 04/02/24 14:59 metoclopramide [From Reglan] Allergy Severe Anaphylaxis Verified 12/08/23 11:25 prochlorperazine Allergy Severe SEIZURE Verified 04/02/24 14:59 [From COMPAZINE] promethazine [From PHENERGAN] Allergy Severe ANAPHYLAXIS Verified 04/02/24 14:59 scopolamine [SCOPOLAMINE] Allergy Severe ANAPHYLAXIS Verified 04/02/24 14:59 codeine [CODEINE] Allergy Intermediate RASH Verified 04/02/24 14:59 gabapentin [GABAPENTIN] Allergy Intermediate DIFFICULTY Verified 04/02/24 14:59 SWALLOWING ketamine [KETAMINE] Allergy Intermediate COMBATIVE/A Verified 04/02/24 14:59 GITATION/DAMON LLUCIONATIO NS magnesium [MAGNESIUM] Allergy Intermediate MUSCLE Verified 04/02/24 14:59 SPASM Home Medications ?Medication ?Instructions ?Recorded ?Confirmed ?Last Taken ?Type fluticasone propionate 50 1 spray intranasal DAILY 06/23/21 04/02/24 Unknown History mcg/actuation nasal spray,suspension albuterol sulfate 90 mcg/actuation 2 puff inhalation Q4H PRN 04/15/22 04/02/24 Unknown History aerosol inhaler Shortness Of Breath rimegepant 75 mg disintegrating 75 mg PO Q OTHER DAY migraine 04/15/22 04/02/24 Unknown History tablet (Nurtec ODT) sumatriptan succinate 100 mg 100 mg PO Q2-4H PRN Migraine 04/15/22 04/02/24 Unknown History tablet (Imitrex) Headache lorazepam 0.5 mg tablet 0.25 - 0.5 mg PO DAILY PRN panic 07/29/22 04/02/24 Unknown History attack tizanidine 2 mg tablet 2 mg PO TID 07/29/22 04/02/24 Unknown History tirzepatide 5 mg/0.5 mL 5 mg subcut QWEEK 12/08/23 04/02/24 03/23/24 History subcutaneous pen injector (Akilah) Exam Airway Mallampati Class: I TM Dist: >3cm Neck ROM: Full Loose/Missing/Broken Teeth: No Heart: ok Lungs: ok Assessment and Plan Assessment Anesthesia Assessment: Anesthesia Plan Discussed Final Anesthetic Review Family History of Problems with Anesthesia: No History of Problems with Anesthesia: Yes (PONV) NPO: Yes ASA Class: II Final Preanesthetic Review: No Changes in Pt Med Stat, Meds/Allgs Chart Reviewed, Consent Obtained/Reviewed and Anes Risks/Benef Reviewed Patient Risk: Low Procedure Risk: Low Anesthetic Plan Anesthetic Plan: MAC: and Agree w/ Assess. and Plan Disposition: Standard PACU
[2024-04-04 11:07] VITALS: BP 105/76; PULSE 90; RESP 18; TEMP 36; O2SAT 97; BMI 25.3
[2024-04-04] MEDS: Lactated Ringers 1,000 ML 100 ML IVCONT (11:17)
--- NOTE | 2024-04-04 11:53 | MHC.SHP ---
Pre-Procedural Eval Section A - 24 Hr Update-Section A only Date of Service: 04/04/24 Section B - Complete if H&P > 30 days Chief Complaint: screening Relevant Family History (Specify if Yes): No Relevant Social History: None Present Medications: see Short Stay Collaborative assessment Medical History: Significant History (Asthma Lumbar facet joint syndrome Allergic rhinitis GERD (gastroesophageal reflux disease) Degeneration, intervertebral disc, lumbar Hepatocellular adenoma Herniated nucleus pulposus, L5-S1, left Stress incontinence in female Liver mass Myositis Migraine headache Anxiety Chronic fatigue Arthralgia ) History of Previous Operations: Relevant previous surgery/procedure and date(s) (History of radiofrequency ablation (RFA) of nerve of lumbar spine History of ear surgery Hx of shoulder surgery) Allergies: Allergies Allergy/AdvReac Type Severity Reaction Status Date / Time ciprofloxacin Allergy Severe nerve Verified 12/08/23 11:25 damage latex [LATEX] Allergy Severe ANAPHYLAXIS Verified 04/02/24 14:59 metoclopramide [From Reglan] Allergy Severe Anaphylaxis Verified 12/08/23 11:25 prochlorperazine Allergy Severe SEIZURE Verified 04/02/24 14:59 [From COMPAZINE] promethazine [From PHENERGAN] Allergy Severe ANAPHYLAXIS Verified 04/02/24 14:59 scopolamine [SCOPOLAMINE] Allergy Severe ANAPHYLAXIS Verified 04/02/24 14:59 codeine [CODEINE] Allergy Intermediate RASH Verified 04/02/24 14:59 gabapentin [GABAPENTIN] Allergy Intermediate DIFFICULTY Verified 04/02/24 14:59 SWALLOWING ketamine [KETAMINE] Allergy Intermediate COMBATIVE/A Verified 04/02/24 14:59 GITATION/DAMON LLUCIONATIO NS magnesium [MAGNESIUM] Allergy Intermediate MUSCLE Verified 04/02/24 14:59 SPASM Review of Systems Sugical H&P ROS: Negative: Constitution, Cardiovascular, Respiratory, Neurological, Psychiatric, Hem-Onc, Allergic/Immunologic, Gastrointestinal, Genitourinary, Musculoskeletal, Integumentary, Endocrine and Eyes/Ears/Nose/Throat Exam Surgical H&P Exam: Normal: HEENT, Normal: Heart, Normal: Lungs, Normal: Extremities, Normal: Abdomen, Normal: Skin and Normal: Neurological Plan Diagnosis/Plan: Unchanged I have reviewed the history and physical and performed a pertinent physical examination on my patient. No changes have occurred unless specified. Time Spent With Patient Time: Total time managing care of this patient today ____ minutes.
--- NOTE | 2024-04-04 12:35 | HO.OPN-COLON ---
Colonoscopy Operative Note Operative Note Date of Service: 04/04/24 Narrative: Operative Information Procedure Description: Colonoscopy Indication: screening Anesthesia: MAC COLONOSCOPY Instrument: Olympus variable stiffness pediatric scope 190L Colonoscopy Monitoring: Vital signs and clinical assessment, continuous EKG monitoring, Pulse oximetry, Carbon Dioxide monitoring and blood pressure monitoring were done throughout the procedure. Colon withdrawal time was 10 minutes. Procedure: The patient was placed in the left lateral decubitis position and pre-procedure medications were administered. After a digital rectal examination of the ano-rectum, the video colonoscope was inserted into the rectum and advanced through the colon to the cecum/TI. The colonoscope was slowly withdrawn in a retrograde panoramic fashion and the colon mucosa was carefully examined including a retroflexed view of the rectum. Findings and interventions are described below. Procedure Difficulty: easy Findings: Terminal Ileum-normal Cecum: sessile polyp with fecal cap, raised with eleview and removed with cold snare Ascending Colon: normal Transverse Colon -normal Descending Colon:normal Sigmoid Colon: moderate severe diverticulosis, 5-6 mm sessile polyp removed with cold snare, not retrieved Rectum: Retroflexion with small internal hemorrhoids seen, grade I Anorectum - normal Intervention: cold snare and eleview injection for EMR, cold snare Colon preparation: Spencer Bowel Preparation Scale Right colon; 2 Transverse colon: 2 Left colon; 2 (0 = Unprepared colon segment with mucosa not seen due to solid stool that cannot be cleared. 1 = Portion of mucosa of the colon segment seen, but other areas of the colon segment not well seen due to staining, residual stool and/or opaque liquid. 2 = Minor amount of residual staining, small fragments of stool and/or opaque liquid, but mucosa of colon segment seen well. 3 = Entire mucosa of colon segment seen well with no residual staining, small fragments of stool or opaque liquid) Impression and Post Procedure Diagnosis: diverticulosis colon polyps x2 internal hemorrhoids Plan: High fiber diet leaflet Avoid straining at stool, epsom salts and sitz bath, anusol supps or cream Repeat Colonoscopy in 4-5 years due to polyps or earlier if clinically indicated Above findings were reviewed with the patient and relevant handouts were provided if indicated.
[2024-04-04 12:41] VITALS: BP 103/60; PULSE 78; RESP 18; TEMP 36.4; O2SAT 100
[2024-04-04 12:56] VITALS: BP 121/78; PULSE 84; RESP 18; TEMP 36.4; O2SAT 100
--- OUTSIDE RECORDS SUMMARY | 2024-04-10 01:36 | XMS_ITS ---
Author Organization [facility] Address [address] [place] [address] Care Team Providers Care Logistics Account Manager Name Role Phone CISCO OWENS Unavailable [phone] REASON FOR VISIT prescription Encounters Encounter Location Date Provider Diagnosis [address] [facility] [address] [place] [address] 01/22/2024 CISCO OWENS PLAN OF TREATMENT Next Appt Details Provider Name:CISCO OWENS, 05/29/2024 11:15:00 AM, [address], [address], [place], [address], Progress Notes * ALLENMadonnaOB: 4 (48 yo F)Acc No.[id number]:01/22/2024 Patient:??ALLENShira :1975?Age:48 Y?Sex:Fe male Address:[address] [place] [address] * true * Date:??
--- OUTSIDE RECORDS SUMMARY | 2024-04-10 01:36 | XMS_ITS ---
Author Organization [facility] Address [address] [place] [address] Care Team Providers Care Compliance Engineer Name Role Phone CISCO OWENS Unavailable [phone] ALLERGIES Allergen (clinical drug ingredient) Drug/Non Drug Allergy documented on EMR Reaction Allergy Type Onset Date Status ciprofloxacin Cipro Unknown Drug Allergy Act brock promethazine Phenergan anaphylaxis Drug Allergy Ac tive metoclopramide Reglan anaphylaxis Drug Allergy Active scopolamine Scopolamine anaphylaxis Drug Allergy A ctive REASON FOR VISIT PT IS HERE FOR WT MGT F/U, NO CONCERNS MEDICATIONS Medication SIG (Take, Route, Frequency, Duration) Notes Start Date End Date Status Mounjaro 5 MG/0.5ML INJECT 5MG SUBCUTANEOUSLY EVERY WEEK for 56 Active Lidocaine 5 % APPLY ONE PATCH TOPICALLY DAILY TO MOST PAINFUL AREA FOR UP TO 12 HOURS NEEDED. THEN REMOVE FOR 12 HOURS External for 30 Days Active SUMAtriptan Succinate 100 MG TAKE 1 TABLET AT ONSET OF HEADACHE. MAY TAKE SECOND DOSE AFTER 2 HOURS IF NEEDED Oral for 30 Days Active Mounjaro 2.5 MG/0.5ML 2.5mg Subcutaneous weekly for 30 days Not-Taking MiraLax 17 GM/SCOOP 1 scoop mixed with 8 ounces of fluid Orally Once a day for 30 days allow for generic bottle 01/22/2024 Active MiraLax 17 GM 1 packet mixed with 8 ounces of fluid Orally Once a day for 30 days Active Fluticasone Propionate 50 MCG/ACT ADMINISTER 1 SPRAY NASALLY DAILY Nasal for 60 Days Active Ondansetron 4 MG DISSOLVE ONE TABLET BY MOUTH EVERY 6 HOURS NEEDED FOR NAUSEA WITH MIGRAINES Oral for 3 Days Active Nurtec 75 MG DISSOLVE ONE TABLET UNDER TONGUE EVERY OTHER DAY NEEDED FOR MIGRAINE HEADACHE Oral for 30 Days Active Zepbound 5 MG/0.5ML 5mg Subcutaneous weekly for 30 days Active Zepbound 5 MG/0.5ML 5mg Subcutaneous weekly for 30 days 12/22/2023 Not-Taking PROBLEMS Problem Type ICD Code Onset Dates Problem Status W/U Status Risk SNOMED Code Notes Problem Overweight (BMI 25.0-29.9) (E66.3) Active confirmed Overweight (154480155) VITAL SIGNS Heart Rate 76 /min 03/27/2024 Blood pressure systolic 124 mm Hg 03/27/20 24 Blood pressure diastolic 76 mm Hg 024 Weight 160.8 lbs 03/27/2024 BMI 25.18 kg/m2 03/27/2024 Height 67 in 03/27/2024 Oximetry 98 % 03/27/2024 Encounters Encounter Location Date Provider Diagnosis [facility] [address] [facility] [address] [place] [address] 03/27/2024 CISCO MCCALLTaz BMI 25.0-25.9,adult Z68.25 ; Overweight (BMI 25.0-29.9) E66.3 ; Dietary counseling and surveillance Z71.3 and Migraine without aura and without status migrainosus, not intractable G43.009 ASSESSMENTS Encounter Date Diagnosis Assessment Notes Treatment Notes Treatment Clinical Notes Section Notes 03/27/2024 BMI 25.0-25.9,adult (ICD-10 - Z68.25) #Weight Management 03/27/2024 thriving cont 5mng dosing now utilizing [employer] pay Total time spent today was 30 minutes of which greater than 50% was spent on coordinating and counseling Patient has been found to be overweight with a BMI of (25). We are a board certified obesity and weight management practice Patient has trialed behavioral modification, dietary restrictions and exercise for a minimum of 6 months Patient counseled regarding effects of GLP/GIP-1 agonists, and other FDA approved wgt loss meds with regards to a multifactorial approach of weight loss as mentioned above and not solely appetite suppression. Of note, some information is being carried forward from prior records for informational purposes only and is being cited so that efficiency, safety and quality of the patient's care is not compromised This note was prepared using voice recognition software and direct typing Please excuse inadvertent service vehicle operator or typing errors, or uncorrected word substitutions Although every attempt has been made by the provider to proofread this document, occasional misspellings and typographical errors may still be present Due to the previous pandemic, and the use of personal protective equipment (PPE) This may decrease voice recognition accuracy Inadvertent service vehicle operator errors may occur 03/27/2024 Overweight (BMI 25.0-29.9) (ICD-10 - E66.3) #Weight Management 03/27/2024 thriving cont 5mng dosing now utilizing [employer] pay Total time spent today was 30 minutes of which greater than 50% was spent on coordinating and counseling Patient has been found to be overweight with a BMI of (25). We are a board certified obesity and weight management practice Patient has trialed behavioral modification, dietary restrictions and exercise for a minimum of 6 months Patient counseled regarding effects of GLP/GIP-1 agonists, and other FDA approved wgt loss meds with regards to a multifactorial approach of weight loss as mentioned above and not solely appetite suppression. Of note, some information is being carried forward from prior records for informational purposes only and is being cited so that efficiency, safety and quality of the patient's care is not compromised This note was prepared using voice recognition software and direct typing Please excuse inadvertent service vehicle operator or typing errors, or uncorrected word substitutions Although every attempt has been made by the provider to proofread this document, occasional misspellings and typographical errors may still be present Due to the previous pandemic, and the use of personal protective equipment (PPE) This may decrease voice recognition accuracy Inadvertent service vehicle operator errors may occur 03/27/2024 Dietary counseling and surveillance (ICD-10 - Z71.3) #Weight Management 03/27/2024 thriving cont 5mng dosing now utilizing [employer] pay Total time spent today was 30 minutes of which greater than 50% was spent on coordinating and counseling Patient has been found to be overweight with a BMI of (25). We are a board certified obesity and weight management practice Patient has trialed behavioral modification, dietary restrictions and exercise for a minimum of 6 months Patient counseled regarding effects of GLP/GIP-1 agonists, and other FDA approved wgt loss meds with regards to a multifactorial approach of weight loss as mentioned above and not solely appetite suppression. Of note, some information is being carried forward from prior records for informational purposes only and is being cited so that efficiency, safety and quality of the patient's care is not compromised This note was prepared using voice recognition software and direct typing Please excuse inadvertent service vehicle operator or typing errors, or uncorrected word substitutions Although every attempt has been made by the provider to proofread this document, occasional misspellings and typographical errors may still be present Due to the previous pandemic, and the use of personal protective equipment (PPE) This may decrease voice recognition accuracy Inadvertent service vehicle operator errors may occur 03/27/2024 Migraine without aura and without status migrainosus, not intractable (ICD-10 - G43.009) #Weight Management 03/27/2024 thriving cont 5mng dosing now utilizing [employer] pay Total time spent today was 30 minutes of which greater than 50% was spent on coordinating and counseling Patient has been found to be overweight with a BMI of (25). We are a board certified obesity and weight management practice Patient has trialed behavioral modification, dietary restrictions and exercise for a minimum of 6 months Patient counseled regarding effects of GLP/GIP-1 agonists, and other FDA approved wgt loss meds with regards to a multifactorial approach of weight loss as mentioned above and not solely appetite suppression. Of note, some information is being carried forward from prior records for informational purposes only and is being cited so that efficiency, safety and quality of the patient's care is not compromised This note was prepared using voice recognition software and direct typing Please excuse inadvertent service vehicle operator or typing errors, or uncorrected word substitutions Although every attempt has been made by the provider to proofread this document, occasional misspellings and typographical errors may still be present Due to the previous pandemic, and the use of personal protective equipment (PPE) This may decrease voice recognition accuracy Inadvertent service vehicle operator errors may occur PLAN OF TREATMENT Medication Medication Name Sig Start Date Stop Date Notes MiraLax 17 GM 1 packet mixed with 8 ounces of fluid Orally Once a day for 30 days Zepbound 5 MG/0.5ML 5mg Subcutaneous weekly for 30 days Next Appt Details Provider Name:CISCO OWENS, 05/29/2024 11:15:00 AM, [address] [facility] [address], [place], [address], Progress Notes * Madonna HANSENOB: 4 (48 yo F)Acc No.[id number]:03/27/2024 Patient:??Shira HANSEN Provider:??CISCO OWENS NP :[id number]?Age:48 Y?Sex:Fe male Date:03/27/2024 Address:[address], [place], [id number] Subjective: * Chief Complaints: * ?1. PT IS HERE FOR WT M GT F/U, NO CONCERNS. * HPI: ?Constitutional:? Patient is here today for a weight management f/u visit ?Patient seen and examined. ?Full past medical history, social history, family history, ?allergies and current medications were reviewed and updated. ?#Weight Management ?03/27/2024 ?SECA unavailable ?She is not utilizing [employer] pay option for home Zepbound ?Had been on 5 mg maintenance dosing varying from every 10-12 days depending on satiety ?Had updated labs with primary care, [facility] 07/2023 ?reports this medicine as it has changed her life she says ?Injection Day: varies ?She has done very well and thriving ?utilizing strength and resistance training ?Significant fat mass loss and maintaining good muscle composition ?03/27/2024, Weight 160lbs , BMI 25 ?01/19/2024, Weight 161lbs , BMI 25 (-4lbs) ?11/17/2023, Weight 165lbs, BMI 25.8 ?09/20/2023, [id number] , BMI 25.7 ?08/03/2023, Weight 165lbs , BMI 25 ?05/12/2023, Weight 165lbs , BMI 25 (-11lbs) ?03/06/2023: Weight 176lbs, BMI 27, (-11lbs) ?01/18/2023: Weight 187lbs, BMI 29 (-19) ?11/23/2022: Weight 206 lbs, BMI: 32 ?Patient referred to us from her co-worker, Avani Ayala ?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 ?Comprehensive labs July 2023 ?CBC is stable renal function and electrolytes, LFTs are stable ?Total cholesterol 194, triglycerides 68, LDL 123, HDL 58 ?Vitamin D 47 ?TSH 2.47 ?Hemoglobin A1c of 4.9 ?Had stress echo last year, trouble with asthma and PCP wanted to make sure not cardiac related. ?Will review labs ?Diet: Eats a lot of fruits and vegetables. Does not track calories. ?Exercise: Currently 8,000-12,000 steps daily. Working as an RN, on her feet all day. ?Walks 3 miles on day off and weight lifiting. ?Non-smoker. No illicit drug use. ?ETOH use: 2 drinks a year. * ROS:?All Other Systems:?Review of Systems (ROS)??All others negative except those mentioned in HPI.? * Medical History:??Hyperlipid emia, Migraine headaches, Obesity, Asthma, Liver adenoma, Add, Lumbar radiculopathy, Lumber facet joint syndrome, Disc herination, High cholesterol, Anxiety, Hearing loss. * Surgical History:??RT should er slap procedure 2011, Lap Celina 1995, Total Hysterectomy 2017, Tympanostomy x13 as a child, Adnoidectomy as a child. * Family History:??Father: ali ve.??Mother: alive.??1 brother(s) . 1 son(s) . .?? * Social History:?pt admits drinks 2-3 socially times per year. * Medications:??Taking Nurtec 75 MG Tablet Disintegrating DISSOLVE ONE TABLET UNDER TONGUE EVERY OTHER DAY NEEDED FOR MIGRAINE HEADACHE Oral , Taking Ondansetron 4 MG Tablet Disintegrating DISSOLVE ONE TABLET BY MOUTH EVERY 6 HOURS NEEDED FOR NAUSEA WITH MIGRAINES Oral , Taking Fluticasone Propionate 50 MCG/ACT Suspension ADMINISTER 1 SPRAY NASALLY DAILY Nasal , Taking SUMAtriptan Succinate 100 MG Tablet TAKE 1 TABLET AT ONSET OF HEADACHE. MAY TAKE SECOND DOSE AFTER 2 HOURS IF NEEDED Oral , Taking Lidocaine 5 % Patch APPLY ONE PATCH TOPICALLY DAILY TO MOST PAINFUL AREA FOR UP TO 12 HOURS NEEDED. THEN REMOVE FOR 12 HOURS External , Taking Mounjaro 5 MG/0.5ML Solution Pen-injector INJECT 5MG SUBCUTANEOUSLY EVERY WEEK , Taking Zepbound 5 MG/0.5ML Solution 5mg Subcutaneous weekly , Taking MiraLax 17 GM Packet 1 packet mixed with 8 ounces of fluid Orally Once a day , Taking MiraLax 17 GM/SCOOP Powder 1 scoop mixed with 8 ounces of fluid Orally Once a day , Notes to Pharmacist: allow for generic bottle, Not-Taking Mounjaro 2.5 MG/0.5ML Solution Pen-injector 2.5mg Subcutaneous weekly , Not-Taking Zepbound 5 MG/0.5ML Solution Auto-injector 5mg Subcutaneous weekly , Medication List reviewed and reconciled with the patient * Allergies:??Cipro, Reglan: a naphylaxis, Phenergan: anaphylaxis, Scopolamine: anaphylaxis. Objective: * Vitals:??HR:76/min, BP:124/7 6mm Hg, Wt:160.8lbs, BMI:25.18Index, Ht: 67 in, Oxygen sat %:98%. * Examination: ?General Examination: ?GENERAL APPEARANCE:??in no acute distress, well developed, well nourished.??HEAD:??normocephalic, atraumatic.??EYES:??pupils equal, round, reactive to light and accommodation.??EARS:??normal.??ORAL CAVITY:??mucosa moist.??THROAT:??clear.??NECK/THYROID:??neck supple, full range of motion, no cervical lymphadenopathy.??SKIN:??no suspicious lesions, warm and dry.??HEART:??no murmurs, regular rate and rhythm, S1, S2 normal.??LUNGS:??clear to auscultation bilaterally.??ABDOMEN:??normal, bowel sounds present, soft, nontender, nondistended.??EXTREMITIES:??no clubbing, cyanosis, or edema.??NEUROLOGIC:??nonfocal, motor strength normal upper and lower extremities, sensory exam intact.? Assessment: * Assessment: 1.??Overweight (BMI 25.0-29. 9) - E66.3 (Primary)??2.??BMI 25.0-25.9,adult - Z68.25??3.??Dietary counseling and surveillance - Z71.3??4.??Migraine without aura and without status migrainosus, not intractable - G43.009?? #Weight Management 03/27/2024 thriving cont 5mng dosing now utilizing [employer] pay Total time spent today was 30 minutes of which greater than 50% was spent on coordinating and counseling Patient has been found to be overweight with a BMI of (25). We are a board certified obesity and weight management practice Patient has trialed behavioral modification, dietary restrictions and exercise for a minimum of 6 months Patient counseled regarding effects of GLP/GIP-1 agonists, and other FDA approved wgt loss meds with regards to a multifactorial approach of weight loss as mentioned above and not solely appetite suppression. Of note, some information is being carried forward from prior records for informational purposes only and is being cited so that efficiency, safety and quality of the patient's care is not compromised This note was prepared using voice recognition software and direct typing Please excuse inadvertent service vehicle operator or typing errors, or uncorrected word substitutions Although every attempt has been made by the provider to proofread this document, occasional misspellings and typographical errors may still be present Due to the previous pandemic, and the use of personal protective equipment (PPE) This may decrease voice recognition accuracy Inadvertent service vehicle operator errors may occur. Plan: * Treatment: * Procedure Codes:??G0447 FCE- FCE BEHAVRL CNSL OBESITY 15 MIN, Modifiers: 59 * Images: Billing Information: * Visit Code:?? 71044 Office Visit, Est Pt., Level 4. * Procedure Codes:?? G0447 FCE-FCE BEHAVRL CNSL OBESITY 15 MIN. Modifiers: 59 * Sign off status: Completed true * Provider:??CISCO OWENS NP Date:??03/02 History and Physical Notes * HPI (History of Present Illness) Category Sub-Category Detail Notes Category Not es Constitutional Patient is here today for a weight management f/u visit Patient seen and examined. Full past medical history, social history, family history, allergies and current medications were reviewed and updated. #Weight Management 03/27/2024 SECA unavailable She is not utilizing [employer] pay option for home Zepbound Had been on 5 mg maintenance dosing varying from every 10-12 days depending on satiety Had updated labs with primary care, [facility] 07/2023 reports this medicine as it has changed her life she says Injection Day: varies She has done very well and thriving utilizing strength and resistance training Significant fat mass loss and maintaining good muscle composition 03/27/2024, Weight 160lbs , BMI 25 01/19/2024, Weight 161lbs , BMI 25 (-4lbs) 11/17/2023, Weight 165lbs, BMI 25.8 09/20/2023, [id number] , BMI 25.7 08/03/2023, Weight 165lbs , BMI 25 05/12/2023, Weight 165lbs , BMI 25 (-11lbs) 03/06/2023: Weight 176lbs, BMI 27, (-11lbs) 01/18/2023: Weight 187lbs, BMI 29 (-19) 11/23/2022: Weight 206 lbs, BMI: 32 Patient referred to us from her co-worker, Avani Ayala 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 Comprehensive labs July 2023 CBC is stable renal function and electrolytes, LFTs are stable Total cholesterol 194, triglycerides 68, LDL 123, HDL 58 Vitamin D 47 TSH 2.47 Hemoglobin A1c of 4.9 Had stress echo last year, trouble with asthma and PCP wanted to make sure not cardiac related. Will review labs Diet: Eats a lot of fruits and vegetables. Does not track calories. Exercise: Currently 8,000-12,000 steps daily. Working as an RN, on her feet all day. Walks 3 miles on day off and weight lifiting. Non-smoker. No illicit drug use. ETOH use: 2 drinks a year Examination Category Sub-Category Detail Notes Category Not es General Examination GENERAL APPEARANCE: in no ac kuldeep distress, well developed, well nourished HEAD: normocephalic, atrau matic EYES: pupils equal, round, reactive to light and accommodation EARS: normal THROAT: clear NECK/THYROID: neck supple, full ra nge of motion, no cervical lymphadenopathy HEART: no murmurs, regular rate and rhythm, S1, S2 normal LUNGS: clear to auscultatio n bilaterally ABDOMEN: normal, bowel sounds present, soft, nontender, nondistended NEUROLOGIC: nonfocal, motor stre ngth normal upper and lower extremities, sensory exam intact SKIN: no suspicious lesion s, warm and dry EXTREMITIES: no clubbing, cyanosi s, or edema ORAL CAVITY: mucosa moist
--- OUTSIDE RECORDS SUMMARY | 2024-04-10 01:37 | XMS_ITS | Patient Health Record ---
Author Organization [facility] Address [address] [place] [address] Care Team Providers Care Business And Financial Counsel Name Role Phone CISCO OWENS Unavailable [phone] ALLERGIES Allergen (clinical drug ingredient) Drug/Non Drug Allergy documented on EMR Reaction Allergy Type Onset Date Status ciprofloxacin Cipro Unknown Drug Allergy Act brock promethazine Phenergan anaphylaxis Drug Allergy Ac tive metoclopramide Reglan anaphylaxis Drug Allergy Active scopolamine Scopolamine anaphylaxis Drug Allergy A ctive REASON FOR REFERRAL No Information MEDICATIONS Medication SIG (Take, Route, Frequency, Duration) Notes Start Date End Date Status MiraLax 17 GM 1 packet mixed with 8 ounces of fluid Orally Once a day for 30 days Active Mounjaro 5 MG/0.5ML INJECT 5MG SUBCUTANEOUSLY EVERY [...] IF NEEDED Oral for 30 Days Active Fluticasone Propionate 50 MCG/ACT ADMINISTER 1 [...] Subcutaneous weekly for 30 days 12/22/2023 Not-Taking Mounjaro 2.5 MG/0.5ML 2.5mg Subcutaneous weekly for 30 days Not-Taking Zepbound 5 MG/0.5ML 5mg Subcutaneous weekly for 30 days Active MiraLax 17 GM/SCOOP 1 scoop mixed with 8 ounces of fluid Orally Once a day for 30 days allow for generic bottle 01/22/2024 Active PROBLEMS Problem Type ICD Code Onset Dates Problem Status W/U Status Risk SNOMED Code Notes Problem Other obesity due to excess calories (E66.09) Active confirmed 382181180 Problem Body mass index [BMI] 32.0-32.9, adult (Z68.32) Active confirmed 344212608 Problem Migraine without aura and without status migrainosus, not intractable (G43.009) Active confirmed [id number] Problem Overweight (BMI 25.0-29.9) (E66.3) Active confirmed Overweight (798783236) VITAL SIGNS Heart Rate 76 /min 03/27/2024 Oximetry 98 % 03/27/2024 Blood pressure diastolic 76 mm Hg 03/27/2024 Height 67 in 03/27/2024 Blood pressure systolic 124 mm Hg 03/27/2024 Weight 160.8 lbs 03/27/2024 BMI 25.18 kg/m2 03/27/2024 Encounters Encounter Location Date Provider Diagnosis [place] [address] 11/17/2023 CISCO OWENS BMI 25.0-25.9,adult Z68.25 ; Overweight (BMI 25.0-29.9) E66.3 ; Dietary counseling and surveillance Z71.3 and Migraine without aura and without status migrainosus, not intractable G43.009 [place] [address] 11/23/2023 [place] [address] 12/13/2023 CISCO OWENS [place] [address] 05/12/2023 CISCO OWENS Other obesity due to excess calories E66.09 ; Migraine without aura and without status migrainosus, not intractable G43.009 ; Overweight (BMI 25.0-29.9) E66.3 and BMI 25.0-25.9,adult Z68.25 [place] [address] 08/03/2023 CISCO BORHOT Other obesity due to excess calories E66.09 ; Migraine without aura and without status migrainosus, not intractable G43.009 ; Overweight (BMI 25.0-29.9) E66.3 and BMI 25.0-25.9,adult Z68.25 [place] [address] [address] 09/20/2023 CISCO BORHOT Overweight (BMI 25.0-29.9) E66.3 ; BMI 25.0-25.9,adult Z68.25 ; Dietary counseling and surveillance Z71.3 and Migraine without aura and without status migrainosus, not intractable G43.009 [place] [address] [address] 11/17/2023 CISCO BORHOT BMI 25.0-25.9,adult Z68.25 ; Overweight (BMI 25.0-29.9) E66.3 ; Dietary counseling and surveillance Z71.3 and Migraine without aura and without status migrainosus, not intractable G43.009 [place] [address] [address] 01/19/2024 CISCO BORHOT BMI 25.0-25.9,adult Z68.25 ; Overweight (BMI 25.0-29.9) E66.3 ; Dietary counseling and surveillance Z71.3 and Migraine without aura and without status migrainosus, not intractable G43.009 [place] [address] [address] 03/27/2024 CISCO BORHOT BMI 25.0-25.9,adult Z68.25 ; Overweight (BMI 25.0-29.9) E66.3 ; Dietary counseling and surveillance Z71.3 and Migraine without aura and without status migrainosus, not intractable G43.009 [place] [address] [address] 08/01/2023 CISCO B[place] [address] [address] 08/03/2023 CISCO BORHOT [place] [address] [address] 11/15/2023 CISCO OWENS [facility] [address] [place] [address] 12/21/2023 CISCO OWENS [address] [facility] [address] [address] 06/28/2023 CISCO FAUSTHOT [address] [address] 08/03/2023 CISCO FAUSTHOT [address] [address] 12/22/2023 CISCO MCCALL [address] [address] 01/22/2024 CISCO OWENS [address] [address] 01/22/2024 CISCO OWENS ASSESSMENTS Encounter Date Diagnosis Assessment Notes Treatment Notes Treatment Clinical Notes Section Notes 05/12/2023 Other obesity due to excess calories (ICD-10 - E66.09) thriving Continue maintenance dosing, 5 mg every other week Discussed importance of protein consumption for muscle maintenance as well as probiotics, B12 complex biotin , iron and other nutrients, To help avoid telogen effluvium while on weight loss medications such as GLP-1 Total time spent today was 30 minutes of which greater than 50% was spent on coordinating and counseling We are a board certified obesity and weight management practice Patient has trialed behavioral modification, dietary restrictions and exercise for a minimum of 6 months Patient counseled regarding effects of GLP/GIP-1 agonists, and other FDA approved wgt loss meds with regards to a multifactorial approach of weight loss as mentioned above and not solely appetite suppression. We have discussed the mechanism of GLP-1's/GIP I think this would be fantastic option for her given her metabolic workup and body composition We have discussed the risks and benefits and side effects including/and not limited to Sarcopenia, intestinal obstruction, constipation, nausea, lethargy, headache There is no history of medullary thyroid cancer or multiple endocrine neoplasia There is also no history of cardiovascular disease, hypertension, palpitations, or arrhythmias In the setting of potential stimulant/amphetam ine use such as phentermine Patient has been found to be overweight with a BMI of (25). Patient was reassured and welcomed to the practice. We discussed that we stress a hollistic medical approach with emphasis on lifestyle modification. Patient was informed that a healthy lifestyle with exercise and good eating habits can help reduce his risk of medical complications. He is explained that obesity increases his risk of diabetes, cardiovascular disease, or organ damage. We spent a lot of time discussing the relationship between food, exercise, sleep, mental health and obesity. Patient was counseled on the importance EATING local, organic food when possible. Patient was educated on clean 15 and dirty dozen. I provided information about reading books called The Food Rules by Eugene Oliver and Eat Fat Get Lean by Dr Tate Che. Self education is important in the journey for weight management. Patient was offered diagnostic testing. We want to measure visceral adiposity, advanced body composition, adverse lipids, fatty acid balance, risk for heart disease and atherosclerosis, markers of inflammation and genetic susceptibility. Patient was counseled on weight management and was advised to lose weight using A. Meal Replacement Products Patient was educated on the replacement products called optifast. This is a good way of taking fixed amount of calories. It has been shown in studies to be ineffective weight management tool. This however has to be coupled with lifestyle intervention as well as laboratory data and EKG monitoring. It is impossible to know how a person will tolerate complete meal replacement. The side effects of meal replacement and weight loss could include syncopal attacks, dizziness, gallstones, potential cholecystectomy, possible heart attack and even . The benefits of meal replacement would be potential weight loss but no guarantees can be made. Meal replacement products are not covered by insurance. Once the patient has bought these products we cannot return them B. Lifestyle management which includes several strategies as below 1. Eat a low carbohydrate good fat good protein diet. Eliminate refined carbohydrates from the diet. Continue blood sugar and sugared beverages. Eat local organic when possible. Cook your own meals. Read food labels. None about healthy snacks. Portion control and food with low glycemic index 2. Exercise regularly. Try to get at least 6000 steps a day. Use a predominant to track activity level. Consider using apps like [employer]ix, myfitnesspal, lose it, stick as needed for self-monitoring and weight management. Consider group exercises. Consider hiring a personal development educator. Regular exercise is ocampo to sustainable health and prevents as a buffer against weight regain 3. Sleep is most important for healing. Tried to sleep at least 8 hours a night. A good quality sleep needs a sleep ritual with ideal room temperature of around 68. It might help to take a shower and have no electronics in the room and sleep in a very dark room without artificial light. Start her sleep routine and get up early in the morning and go to bed on time 4. Make a social connection. Surround yourself with positive people with positive energy. Connect with friends and family. 5. Get into the habit of meditating and mindfulness while doing everything. 6. Go outside and connect with nature. C. Prescription medications Patient was educated on the use of prescription medications for medical weight loss. This is a growing list and includes phentermine, Topamax,Qsymia, contrave, belviq and saxenda. All prescription medications could have side effects including but not limited to kidney stones, seizure disorder cardiac arrhythmias heart attack pancreatitis etc. etc.. Patient was encouraged to read the prescription insert and have coaching with their pharmacist and make an informed decision about taking medication and know that these medications are being prescribed with good intentions and we do not know how a patient would react to her medication. Sudden medications are FDA approved for weight loss and there is also off label use depending on patient's inability to afford medications in an attempt to lose weight D. Behavioral counseling was done to establish a relationship between food and an mood. Patient was provided information about local counseling and psychiatry and Dr Patterson at [facility]. We would like to cover regular topics and build on low glycemic eating exercise mindful eating, using yoga and meditation along with deep breathing and connecting with friends and family. E. MASS PAT reviewed, Patient's current medications were reviewed and opinion was given on medication that can cause weight gain and can be substituted F. Patient was assessed for risk with obesity including and not limiting to atherosclerosis heart disease stroke kidney disease, restrictive lung disease, irritable bowel syndrome and overall mortality. Risk of developing prediabetes diabetes and metabolic syndrome was discussed G. Therapeutic plan: We have decided to make therapeutic plan which would include choosing wisely on calories restricting portion getting active, tracking weight, getting good quality sleep and working on time management H. Patient will follow up in (4) weeks for weight management Of note, some information is being carried forward from prior records for informational purposes only and is being cited so that efficiency, safety and quality of the patient's care is not compromised This note was prepared using voice recognition software and direct typing Please excuse inadvertent boat canvas maker installer or typing errors, or uncorrected word substitutions Although every attempt has been made by the provider to proofread this document, occasional misspellings and typographical errors may still be present Due to the previous pandemic, and the use of personal protective equipment (PPE) This may decrease voice recognition accuracy Inadvertent boat canvas maker installer errors may occur 08/03/2023 Other obesity due to excess calories (ICD-10 - E66.09) #Weight Management 08/03/2023 thriving Continue maintenance dosing, 5 mg every other week Discussed importance of protein consumption for muscle maintenance as well as probiotics, B12 complex biotin , iron and other nutrients, To help avoid telogen effluvium while on weight loss medications such as GLP-1 Total time spent today was 30 minutes [...] mentioned above and not solely appetite suppression. We have discussed the mechanism of GLP-1's/GIP I think this would be fantastic option for her given her metabolic workup and body composition We have discussed the risks and benefits and side effects including/and not limited to Sarcopenia, intestinal obstruction, constipation, nausea, lethargy, headache There is no history of medullary thyroid cancer or multiple endocrine neoplasia There is also no history of cardiovascular disease, hypertension, palpitations, or arrhythmias In the setting of potential stimulant/amphetam ine use such as phentermine Patient was reassured and welcomed to the practice. We discussed that we stress a hollistic medical approach with emphasis on lifestyle modification. Patient was informed that a healthy lifestyle with exercise and good eating habits can help reduce his risk of medical complications. He is explained that obesity increases his risk of diabetes, cardiovascular disease, or organ damage. We spent a lot of time discussing the relationship between food, exercise, sleep, mental health and obesity. Patient was counseled on the importance EATING local, organic food when possible. Patient was educated on clean 15 and dirty dozen. I provided information about reading books called The Food Rules by Eugene Oliver and Eat Fat Get Lean by Dr Tate Che. Self education is important in the journey for weight management. Patient was offered diagnostic testing. We want to measure visceral adiposity, advanced body composition, adverse lipids, fatty acid balance, risk for heart disease and atherosclerosis, markers of inflammation and genetic susceptibility. Patient was counseled on weight management and was advised to lose weight using A. Meal Replacement Products Patient was educated on the replacement products called optifast. This is a good way of taking fixed amount of calories. It has been shown in studies to be ineffective weight management tool. This however has to be coupled with lifestyle intervention as well as laboratory data and EKG monitoring. It is impossible to know how a person will tolerate complete meal replacement. The side effects of meal replacement and weight loss could include syncopal attacks, dizziness, gallstones, potential cholecystectomy, possible heart attack and even . The benefits of meal replacement would be potential weight loss but no guarantees can be made. Meal replacement products are not covered by insurance. Once the patient has bought these products we cannot return them B. Lifestyle management which includes several strategies as below 1. Eat a low carbohydrate good fat good protein diet. Eliminate refined carbohydrates from the diet. Continue blood sugar and sugared beverages. Eat local organic when possible. Cook your own meals. Read food labels. None about healthy snacks. Portion control and food with low glycemic index 2. Exercise regularly. Try to get at least 6000 steps a day. Use a predominant to track activity level. Consider using apps like [employer], myfitnesspal, lose it, stick as needed for self-monitoring and weight management. Consider group exercises. Consider hiring a personal development educator. Regular exercise is ocampo to sustainable health and prevents as a buffer against weight regain 3. Sleep is most important for healing. Tried to sleep at least 8 hours a night. A good quality sleep needs a sleep ritual with ideal room temperature of around 68. It might help to take a shower and have no electronics in the room and sleep in a very dark room without artificial light. Start her sleep routine and get up early in the morning and go to bed on time 4. Make a social connection. Surround yourself with positive people with positive energy. Connect with friends and family. 5. Get into the habit of meditating and mindfulness while doing everything. 6. Go outside and connect with nature. C. Prescription medications Patient was educated on the use of prescription medications for medical weight loss. This is a growing list and includes phentermine, Topamax,Qsymia, contrave, belviq and saxenda. All prescription medications could have side effects including but not limited to kidney stones, seizure disorder cardiac arrhythmias heart attack pancreatitis etc. etc.. Patient was encouraged to read the prescription insert and have coaching with their pharmacist and make an informed decision about taking medication and know that these medications are being prescribed with good intentions and we do not know how a patient would react to her medication. Sudden medications are FDA approved for weight loss and there is also off label use depending on patient's inability to afford medications in an attempt to lose weight D. Behavioral counseling was done to establish a relationship between food and an mood. Patient was provided information about local counseling and psychiatry and Dr Patterson at [employer]. We would like to cover regular topics and build on low glycemic eating exercise mindful eating, using yoga and meditation along with deep breathing and connecting with friends and family. E. MASS PAT reviewed, Patient's current medications were reviewed and opinion was given on medication that can cause weight gain and can be substituted F. Patient was assessed for risk with obesity including and not limiting to atherosclerosis heart disease stroke kidney disease, restrictive lung disease, irritable bowel syndrome and overall mortality. Risk of developing prediabetes diabetes and metabolic syndrome was discussed G. Therapeutic plan: We have decided to make therapeutic plan which would include choosing wisely on calories restricting portion getting active, tracking weight, getting good quality sleep and working on time management H. Patient will follow up in (4) weeks for weight management Of note, some information is being carried forward from prior records for informational purposes only and is being cited so that efficiency, safety and quality of the patient's care is not compromised This note was prepared using voice recognition software and direct typing Please excuse inadvertent boat canvas maker installer or typing errors, or uncorrected word substitutions Although every attempt has been made by the provider to proofread this document, occasional misspellings and typographical errors may still be present Due to the previous pandemic, and the use of personal protective equipment (PPE) This may decrease voice recognition accuracy Inadvertent boat canvas maker installer errors may occur 09/20/2023 BMI 25.0-25.9,adult (ICD-10 - Z68.25) #Weight Management 09/20/2023 Review labs [facility] Continue maintenance dosing, 5 mg every other week Discussed importance of protein consumption for muscle maintenance as well as probiotics, B12 complex biotin , iron and other nutrients, To help avoid telogen effluvium while on weight loss medications such as GLP-1 Total time spent today was 30 minutes [...] mentioned above and not solely appetite suppression. We have discussed the mechanism of GLP-1's/GIP I think this would be fantastic option for her given her metabolic workup and body composition We have discussed the risks and benefits and side effects including/and not limited to Sarcopenia, intestinal obstruction, constipation, nausea, lethargy, headache There is no history of medullary thyroid cancer or multiple endocrine neoplasia There is also no history of cardiovascular disease, hypertension, palpitations, or arrhythmias In the setting of potential stimulant/amphetam ine use such as phentermine Patient was reassured and welcomed to the practice. We discussed that we stress a hollistic medical approach with emphasis on lifestyle modification. Patient was informed that a healthy lifestyle with exercise and good eating habits can help reduce his risk of medical complications. He is explained that obesity increases his risk of diabetes, cardiovascular disease, or organ damage. We spent a lot of time discussing the relationship between food, exercise, sleep, mental health and obesity. Patient was counseled on the importance EATING local, organic food when possible. Patient was educated on clean 15 and dirty dozen. I provided information about reading books called The Food Rules by Eugene Oliver and Eat Fat Get Lean by Dr Tate Che. Self education is important in the journey for weight management. Patient was offered diagnostic testing. We want to measure visceral adiposity, advanced body composition, adverse lipids, fatty acid balance, risk for heart disease and atherosclerosis, markers of inflammation and genetic susceptibility. Patient was counseled on weight management and was advised to lose weight using A. Meal Replacement Products Patient was educated on the replacement products called optifast. This is a good way of taking fixed amount of calories. It has been shown in studies to be ineffective weight management tool. This however has to be coupled with lifestyle intervention as well as laboratory data and EKG monitoring. It is impossible to know how a person will tolerate complete meal replacement. The side effects of meal replacement and weight loss could include syncopal attacks, dizziness, gallstones, potential cholecystectomy, possible heart attack and even . The benefits of meal replacement would be potential weight loss but no guarantees can be made. Meal replacement products are not covered by insurance. Once the patient has bought these products we cannot return them B. Lifestyle management which includes several strategies as below 1. Eat a low carbohydrate good fat good protein diet. Eliminate refined carbohydrates from the diet. Continue blood sugar and sugared beverages. Eat local organic when possible. Cook your own meals. Read food labels. None about healthy snacks. Portion control and food with low glycemic index 2. Exercise regularly. Try to get at least 6000 steps a day. Use a predominant to track activity level. Consider using apps like [employer], [employer], lose it, stick as needed for self-monitoring and weight management. Consider group exercises. Consider hiring a personal development educator. Regular exercise is ocampo to sustainable health and prevents as a buffer against weight regain 3. Sleep is most important for healing. Tried to sleep at least 8 hours a night. A good quality sleep needs a sleep ritual with ideal room temperature of around 68. It might help to take a shower and have no electronics in the room and sleep in a very dark room without artificial light. Start her sleep routine and get up early in the morning and go to bed on time 4. Make a social connection. Surround yourself with positive people with positive energy. Connect with friends and family. 5. Get into the habit of meditating and mindfulness while doing everything. 6. Go outside and connect with nature. C. Prescription medications Patient was educated on the use of prescription medications for medical weight loss. This is a growing list and includes phentermine, Topamax,Qsymia, contrave, belviq and saxenda. All prescription medications could have side effects including but not limited to kidney stones, seizure disorder cardiac arrhythmias heart attack pancreatitis etc. etc.. Patient was encouraged to read the prescription insert and have coaching with their pharmacist and make an informed decision about taking medication and know that these medications are being prescribed with good intentions and we do not know how a patient would react to her medication. Sudden medications are FDA approved for weight loss and there is also off label use depending on patient's inability to afford medications in an attempt to lose weight D. Behavioral counseling was done to establish a relationship between food and an mood. Patient was provided information about local counseling and psychiatry and Dr Patterson at [facility]. We would like to cover regular topics and build on low glycemic eating exercise mindful eating, using yoga and meditation along with deep breathing and connecting with friends and family. E. MASS PAT reviewed, Patient's current medications were reviewed and opinion was given on medication that can cause weight gain and can be substituted F. Patient was assessed for risk with obesity including and not limiting to atherosclerosis heart disease stroke kidney disease, restrictive lung disease, irritable bowel syndrome and overall mortality. Risk of developing prediabetes diabetes and metabolic syndrome was discussed G. Therapeutic plan: We have decided to make therapeutic plan which would include choosing wisely on calories restricting portion getting active, tracking weight, getting good quality sleep and working on time management H. Patient will follow up in (4) weeks for weight management Of note, some information is being carried forward from prior records for informational purposes only and is being cited so that efficiency, safety and quality of the patient's care is not compromised This note was prepared using voice recognition software and direct typing Please excuse inadvertent boat canvas maker installer or typing errors, or uncorrected word substitutions Although every attempt has been made by the provider to proofread this document, occasional misspellings and typographical errors may still be present Due to the previous pandemic, and the use of personal protective equipment (PPE) This may decrease voice recognition accuracy Inadvertent boat canvas maker installer errors may occur 09/20/2023 Overweight (BMI 25.0-29.9) (ICD-10 - E66.3) #Weight Management 09/20/2023 Review labs [facility] Continue maintenance dosing, 5 mg every other week Discussed importance of protein consumption for muscle maintenance as well as probiotics, B12 complex biotin , iron and other nutrients, To help avoid telogen effluvium while on weight loss medications such as GLP-1 Total time spent today was 30 minutes [...] mentioned above and not solely appetite suppression. We have discussed the mechanism of GLP-1's/GIP I think this would be fantastic option for her given her metabolic workup and body composition We have discussed the risks and benefits and side effects including/and not limited to Sarcopenia, intestinal obstruction, constipation, nausea, lethargy, headache There is no history of medullary thyroid cancer or multiple endocrine neoplasia There is also no history of cardiovascular disease, hypertension, palpitations, or arrhythmias In the setting of potential stimulant/amphetam ine use such as phentermine Patient was reassured and welcomed to the practice. We discussed that we stress a hollistic medical approach with emphasis on lifestyle modification. Patient was informed that a healthy lifestyle with exercise and good eating habits can help reduce his risk of medical complications. He is explained that obesity increases his risk of diabetes, cardiovascular disease, or organ damage. We spent a lot of time discussing the relationship between food, exercise, sleep, mental health and obesity. Patient was counseled on the importance EATING local, organic food when possible. Patient was educated on clean 15 and dirty dozen. I provided information about reading books called The Food Rules by Eugene Oliver and Eat Fat Get Lean by Dr Tate Che. Self education is important in the journey for weight management. Patient was offered diagnostic testing. We want to measure visceral adiposity, advanced body composition, adverse lipids, fatty acid balance, risk for heart disease and atherosclerosis, markers of inflammation and genetic susceptibility. Patient was counseled on weight management and was advised to lose weight using A. Meal Replacement Products Patient was educated on the replacement products called optifast. This is a good way of taking fixed amount of calories. It has been shown in studies to be ineffective weight management tool. This however has to be coupled with lifestyle intervention as well as laboratory data and EKG monitoring. It is impossible to know how a person will tolerate complete meal replacement. The side effects of meal replacement and weight loss could include syncopal attacks, dizziness, gallstones, potential cholecystectomy, possible heart attack and even . The benefits of meal replacement would be potential weight loss but no guarantees can be made. Meal replacement products are not covered by insurance. Once the patient has bought these products we cannot return them B. Lifestyle management which includes several strategies as below 1. Eat a low carbohydrate good fat good protein diet. Eliminate refined carbohydrates from the diet. Continue blood sugar and sugared beverages. Eat local organic when possible. Cook your own meals. Read food labels. None about healthy snacks. Portion control and food with low glycemic index 2. Exercise regularly. Try to get at least 6000 steps a day. Use a predominant to track activity level. Consider using apps like Bo[employer]otix, Voyandopal, lose it, stick as needed for self-monitoring and weight management. Consider group exercises. Consider hiring a personal development educator. Regular exercise is ocampo to sustainable health and prevents as a buffer against weight regain 3. Sleep is most important for healing. Tried to sleep at least 8 hours a night. A good quality sleep needs a sleep ritual with ideal room temperature of around 68. It might help to take a shower and have no electronics in the room and sleep in a very dark room without artificial light. Start her sleep routine and get up early in the morning and go to bed on time 4. Make a social connection. Surround yourself with positive people with positive energy. Connect with friends and family. 5. Get into the habit of meditating and mindfulness while doing everything. 6. Go outside and connect with nature. C. Prescription medications Patient was educated on the use of prescription medications for medical weight loss. This is a growing list and includes phentermine, Topamax,Qsymia, contrave, belviq and saxenda. All prescription medications could have side effects including but not limited to kidney stones, seizure disorder cardiac arrhythmias heart attack pancreatitis etc. etc.. Patient was encouraged to read the prescription insert and have coaching with their pharmacist and make an informed decision about taking medication and know that these medications are being prescribed with good intentions and we do not know how a patient would react to her medication. Sudden medications are FDA approved for weight loss and there is also off label use depending on patient's inability to afford medications in an attempt to lose weight D. Behavioral counseling was done to establish a relationship between food and an mood. Patient was provided information about local counseling and psychiatry and Dr Patterson at [facility]. We would like to cover regular topics and build on low glycemic eating exercise mindful eating, using yoga and meditation along with deep breathing and connecting with friends and family. E. MASS PAT reviewed, Patient's current medications were reviewed and opinion was given on medication that can cause weight gain and can be substituted F. Patient was assessed for risk with obesity including and not limiting to atherosclerosis heart disease stroke kidney disease, restrictive lung disease, irritable bowel syndrome and overall mortality. Risk of developing prediabetes diabetes and metabolic syndrome was discussed G. Therapeutic plan: We have decided to make therapeutic plan which would include choosing wisely on calories restricting portion getting active, tracking weight, getting good quality sleep and working on time management H. Patient will follow up in (4) weeks for weight management Of note, some information is being carried forward from prior records for informational purposes only and is being cited so that efficiency, safety and quality of the patient's care is not compromised This note was prepared using voice recognition software and direct typing Please excuse inadvertent boat canvas maker installer or typing errors, or uncorrected word substitutions Although every attempt has been made by the provider to proofread this document, occasional misspellings and typographical errors may still be present Due to the previous pandemic, and the use of personal protective equipment (PPE) This may decrease voice recognition accuracy Inadvertent boat canvas maker installer errors may occur 11/17/2023 BMI 25.0-25.9,adult (ICD-10 - Z68.25) #Weight Management 11/17/2023 Review labs [facility] Continue maintenance dosing, 5 mg every other week Discussed importance of protein consumption for muscle maintenance as well as probiotics, B12 complex biotin , iron and other nutrients, To help avoid telogen effluvium while on weight loss medications such as GLP-1 Total time spent today was 30 minutes [...] mentioned above and not solely appetite suppression. We have discussed the mechanism of GLP-1's/GIP I think this would be fantastic option for her given her metabolic workup and body composition We have discussed the risks and benefits and side effects including/and not limited to Sarcopenia, intestinal obstruction, constipation, nausea, lethargy, headache There is no history of medullary thyroid cancer or multiple endocrine neoplasia There is also no history of cardiovascular disease, hypertension, palpitations, or arrhythmias In the setting of potential stimulant/amphetam ine use such as phentermine Patient was reassured and welcomed to the practice. We discussed that we stress a hollistic medical approach with emphasis on lifestyle modification. Patient was informed that a healthy lifestyle with exercise and good eating habits can help reduce his risk of medical complications. He is explained that obesity increases his risk of diabetes, cardiovascular disease, or organ damage. We spent a lot of time discussing the relationship between food, exercise, sleep, mental health and obesity. Patient was counseled on the importance EATING local, organic food when possible. Patient was educated on clean 15 and dirty dozen. I provided information about reading books called The Food Rules by Eugene Oliver and Eat Fat Get Lean by Dr Tate Che. Self education is important in the journey for weight management. Patient was offered diagnostic testing. We want to measure visceral adiposity, advanced body composition, adverse lipids, fatty acid balance, risk for heart disease and atherosclerosis, markers of inflammation and genetic susceptibility. Patient was counseled on weight management and was advised to lose weight using A. Meal Replacement Products Patient was educated on the replacement products called optifast. This is a good way of taking fixed amount of calories. It has been shown in studies to be ineffective weight management tool. This however has to be coupled with lifestyle intervention as well as laboratory data and EKG monitoring. It is impossible to know how a person will tolerate complete meal replacement. The side effects of meal replacement and weight loss could include syncopal attacks, dizziness, gallstones, potential cholecystectomy, possible heart attack and even . The benefits of meal replacement would be potential weight loss but no guarantees can be made. Meal replacement products are not covered by insurance. Once the patient has bought these products we cannot return them B. Lifestyle management which includes several strategies as below 1. Eat a low carbohydrate good fat good protein diet. Eliminate refined carbohydrates from the diet. Continue blood sugar and sugared beverages. Eat local organic when possible. Cook your own meals. Read food labels. None about healthy snacks. Portion control and food with low glycemic index 2. Exercise regularly. Try to get at least 6000 steps a day. Use a predominant to track activity level. Consider using apps like Bo[employer]ot[employer], Voyandopal, lose it, stick as needed for self-monitoring and weight management. Consider group exercises. Consider hiring a personal development educator. Regular exercise is ocampo to sustainable health and prevents as a buffer against weight regain 3. Sleep is most important for healing. Tried to sleep at least 8 hours a night. A good quality sleep needs a sleep ritual with ideal room temperature of around 68. It might help to take a shower and have no electronics in the room and sleep in a very dark room without artificial light. Start her sleep routine and get up early in the morning and go to bed on time 4. Make a social connection. Surround yourself with positive people with positive energy. Connect with friends and family. 5. Get into the habit of meditating and mindfulness while doing everything. 6. Go outside and connect with nature. C. Prescription medications Patient was educated on the use of prescription medications for medical weight loss. This is a growing list and includes phentermine, Topamax,Qsymia, contrave, belviq and saxenda. All prescription medications could have side effects including but not limited to kidney stones, seizure disorder cardiac arrhythmias heart attack pancreatitis etc. etc.. Patient was encouraged to read the prescription insert and have coaching with their pharmacist and make an informed decision about taking medication and know that these medications are being prescribed with good intentions and we do not know how a patient would react to her medication. Sudden medications are FDA approved for weight loss and there is also off label use depending on patient's inability to afford medications in an attempt to lose weight D. Behavioral counseling was done to establish a relationship between food and an mood. Patient was provided information about local counseling and psychiatry and Dr Patterson at [facility]. We would like to cover regular topics and build on low glycemic eating exercise mindful eating, using yoga and meditation along with deep breathing and connecting with friends and family. E. MASS PAT reviewed, Patient's current medications were reviewed and opinion was given on medication that can cause weight gain and can be substituted F. Patient was assessed for risk with obesity including and not limiting to atherosclerosis heart disease stroke kidney disease, restrictive lung disease, irritable bowel syndrome and overall mortality. Risk of developing prediabetes diabetes and metabolic syndrome was discussed G. Therapeutic plan: We have decided to make therapeutic plan which would include choosing wisely on calories restricting portion getting active, tracking weight, getting good quality sleep and working on time management H. Patient will follow up in (4) weeks for weight management Of note, some information is being carried forward from prior records for informational purposes only and is being cited so that efficiency, safety and quality of the patient's care is not compromised This note was prepared using voice recognition software and direct typing Please excuse inadvertent boat canvas maker installer or typing errors, or uncorrected word substitutions Although every attempt has been made by the provider to proofread this document, occasional misspellings and typographical errors may still be present Due to the previous pandemic, and the use of personal protective equipment (PPE) This may decrease voice recognition accuracy Inadvertent boat canvas maker installer errors may occur 11/17/2023 BMI 25.0-25.9,adult (ICD-10 - Z68.25) #Weight Management 11/17/2023 thriving Continue maintenance dosing, 5 mg every other week Discussed importance of protein consumption for muscle maintenance as well as probiotics, B12 complex biotin , iron and other nutrients, To help avoid telogen effluvium while on weight loss medications such as GLP-1 Total time spent today was 30 minutes [...] mentioned above and not solely appetite suppression. We have discussed the mechanism of GLP-1's/GIP I think this would be fantastic option for her given her metabolic workup and body composition We have discussed the risks and benefits and side effects including/and not limited to Sarcopenia, intestinal obstruction, constipation, nausea, lethargy, headache There is no history of medullary thyroid cancer or multiple endocrine neoplasia There is also no history of cardiovascular disease, hypertension, palpitations, or arrhythmias In the setting of potential stimulant/amphetam ine use such as phentermine Patient was reassured and welcomed to the practice. We discussed that we stress a hollistic medical approach with emphasis on lifestyle modification. Patient was informed that a healthy lifestyle with exercise and good eating habits can help reduce his risk of medical complications. He is explained that obesity increases his risk of diabetes, cardiovascular disease, or organ damage. We spent a lot of time discussing the relationship between food, exercise, sleep, mental health and obesity. Patient was counseled on the importance EATING local, organic food when possible. Patient was educated on clean 15 and dirty dozen. I provided information about reading books called The Food Rules by Eugene Oliver and Eat Fat Get Lean by Dr Tate Che. Self education is important in the journey for weight management. Patient was offered diagnostic testing. We want to measure visceral adiposity, advanced body composition, adverse lipids, fatty acid balance, risk for heart disease and atherosclerosis, markers of inflammation and genetic susceptibility. Patient was counseled on weight management and was advised to lose weight using A. Meal Replacement Products Patient was educated on the replacement products called optifast. This is a good way of taking fixed amount of calories. It has been shown in studies to be ineffective weight management tool. This however has to be coupled with lifestyle intervention as well as laboratory data and EKG monitoring. It is impossible to know how a person will tolerate complete meal replacement. The side effects of meal replacement and weight loss could include syncopal attacks, dizziness, gallstones, potential cholecystectomy, possible heart attack and even . The benefits of meal replacement would be potential weight loss but no guarantees can be made. Meal replacement products are not covered by insurance. Once the patient has bought these products we cannot return them B. Lifestyle management which includes several strategies as below 1. Eat a low carbohydrate good fat good protein diet. Eliminate refined carbohydrates from the diet. Continue blood sugar and sugared beverages. Eat local organic when possible. Cook your own meals. Read food labels. None about healthy snacks. Portion control and food with low glycemic index 2. Exercise regularly. Try to get at least 6000 steps a day. Use a predominant to track activity level. Consider using apps like Bo[employer]otix, Voyandopal, lose it, stick as needed for self-monitoring and weight management. Consider group exercises. Consider hiring a personal development educator. Regular exercise is ocampo to sustainable health and prevents as a buffer against weight regain 3. Sleep is most important for healing. Tried to sleep at least 8 hours a night. A good quality sleep needs a sleep ritual with ideal room temperature of around 68. It might help to take a shower and have no electronics in the room and sleep in a very dark room without artificial light. Start her sleep routine and get up early in the morning and go to bed on time 4. Make a social connection. Surround yourself with positive people with positive energy. Connect with friends and family. 5. Get into the habit of meditating and mindfulness while doing everything. 6. Go outside and connect with nature. C. Prescription medications Patient was educated on the use of prescription medications for medical weight loss. This is a growing list and includes phentermine, Topamax,Qsymia, contrave, belviq and saxenda. All prescription medications could have side effects including but not limited to kidney stones, seizure disorder cardiac arrhythmias heart attack pancreatitis etc. etc.. Patient was encouraged to read the prescription insert and have coaching with their pharmacist and make an informed decision about taking medication and know that these medications are being prescribed with good intentions and we do not know how a patient would react to her medication. Sudden medications are FDA approved for weight loss and there is also off label use depending on patient's inability to afford medications in an attempt to lose weight D. Behavioral counseling was done to establish a relationship between food and an mood. Patient was provided information about local counseling and psychiatry and Dr Patterson at [facility]. We would like to cover regular topics and build on low glycemic eating exercise mindful eating, using yoga and meditation along with deep breathing and connecting with friends and family. E. MASS PAT reviewed, Patient's current medications were reviewed and opinion was given on medication that can cause weight gain and can be substituted F. Patient was assessed for risk with obesity including and not limiting to atherosclerosis heart disease stroke kidney disease, restrictive lung disease, irritable bowel syndrome and overall mortality. Risk of developing prediabetes diabetes and metabolic syndrome was discussed G. Therapeutic plan: We have decided to make therapeutic plan which would include choosing wisely on calories restricting portion getting active, tracking weight, getting good quality sleep and working on time management H. Patient will follow up in (4) weeks for weight management Of note, some information is being carried forward from prior records for informational purposes only and is being cited so that efficiency, safety and quality of the patient's care is not compromised This note was prepared using voice recognition software and direct typing Please excuse inadvertent boat canvas maker installer or typing errors, or uncorrected word substitutions Although every attempt has been made by the provider to proofread this document, occasional misspellings and typographical errors may still be present Due to the previous pandemic, and the use of personal protective equipment (PPE) This may decrease voice recognition accuracy Inadvertent boat canvas maker installer errors may occur 01/19/2024 BMI 25.0-25.9,adult (ICD-10 - Z68.25) #Weight Management 01/19/2024 ciera Will send 5 mg dose to [facility] Discussed importance of protein consumption for muscle maintenance as well as probiotics, B12 complex biotin , iron and other nutrients, To help avoid telogen effluvium while on weight loss medications such as GLP-1 Total time spent today was 30 minutes [...] mentioned above and not solely appetite suppression. We have discussed the mechanism of GLP-1's/GIP I think this would be fantastic option for her given her metabolic workup and body composition We have discussed the risks and benefits and side effects including/and not limited to Sarcopenia, intestinal obstruction, constipation, nausea, lethargy, headache There is no history of medullary thyroid cancer or multiple endocrine neoplasia There is also no history of cardiovascular disease, hypertension, palpitations, or arrhythmias In the setting of potential stimulant/amphetam ine use such as phentermine Patient was reassured and welcomed to the practice. We discussed that we stress a hollistic medical approach with emphasis on lifestyle modification. Patient was informed that a healthy lifestyle with exercise and good eating habits can help reduce his risk of medical complications. He is explained that obesity increases his risk of diabetes, cardiovascular disease, or organ damage. We spent a lot of time discussing the relationship between food, exercise, sleep, mental health and obesity. Patient was counseled on the importance EATING local, organic food when possible. Patient was educated on clean 15 and dirty dozen. I provided information about reading books called The Food Rules by Eugene Oliver and Eat Fat Get Lean by Dr Tate Che. Self education is important in the journey for weight management. Patient was offered diagnostic testing. We want to measure visceral adiposity, advanced body composition, adverse lipids, fatty acid balance, risk for heart disease and atherosclerosis, markers of inflammation and genetic susceptibility. Patient was counseled on weight management and was advised to lose weight using A. Meal Replacement Products Patient was educated on the replacement products called optifast. This is a good way of taking fixed amount of calories. It has been shown in studies to be ineffective weight management tool. This however has to be coupled with lifestyle intervention as well as laboratory data and EKG monitoring. It is impossible to know how a person will tolerate complete meal replacement. The side effects of meal replacement and weight loss could include syncopal attacks, dizziness, gallstones, potential cholecystectomy, possible heart attack and even . The benefits of meal replacement would be potential weight loss but no guarantees can be made. Meal replacement products are not covered by insurance. Once the patient has bought these products we cannot return them B. Lifestyle management which includes several strategies as below 1. Eat a low carbohydrate good fat good protein diet. Eliminate refined carbohydrates from the diet. Continue blood sugar and sugared beverages. Eat local organic when possible. Cook your own meals. Read food labels. None about healthy snacks. Portion control and food with low glycemic index 2. Exercise regularly. Try to get at least 6000 steps a day. Use a predominant to track activity level. Consider using apps like Boombotix, Voyandopal, lose it, stick as needed for self-monitoring and weight management. Consider group exercises. Consider hiring a personal development educator. Regular exercise is ocampo to sustainable health and prevents as a buffer against weight regain 3. Sleep is most important for healing. Tried to sleep at least 8 hours a night. A good quality sleep needs a sleep ritual with ideal room temperature of around 68. It might help to take a shower and have no electronics in the room and sleep in a very dark room without artificial light. Start her sleep routine and get up early in the morning and go to bed on time 4. Make a social connection. Surround yourself with positive people with positive energy. Connect with friends and family. 5. Get into the habit of meditating and mindfulness while doing everything. 6. Go outside and connect with nature. C. Prescription medications Patient was educated on the use of prescription medications for medical weight loss. This is a growing list and includes phentermine, Topamax,Qsymia, contrave, belviq and saxenda. All prescription medications could have side effects including but not limited to kidney stones, seizure disorder cardiac arrhythmias heart attack pancreatitis etc. etc.. Patient was encouraged to read the prescription insert and have coaching with their pharmacist and make an informed decision about taking medication and know that these medications are being prescribed with good intentions and we do not know how a patient would react to her medication. Sudden medications are FDA approved for weight loss and there is also off label use depending on patient's inability to afford medications in an attempt to lose weight D. Behavioral counseling was done to establish a relationship between food and an mood. Patient was provided information about local counseling and psychiatry and Dr Patterson at [facility]. We would like to cover regular topics and build on low glycemic eating exercise mindful eating, using yoga and meditation along with deep breathing and connecting with friends and family. E. MASS PAT reviewed, Patient's current medications were reviewed and opinion was given on medication that can cause weight gain and can be substituted F. Patient was assessed for risk with obesity including and not limiting to atherosclerosis heart disease stroke kidney disease, restrictive lung disease, irritable bowel syndrome and overall mortality. Risk of developing prediabetes diabetes and metabolic syndrome was discussed G. Therapeutic plan: We have decided to make therapeutic plan which would include choosing wisely on calories restricting portion getting active, tracking weight, getting good quality sleep and working on time management H. Patient will follow up in (4) weeks for weight management Of note, some information is being carried forward from prior records for informational purposes only and is being cited so that efficiency, safety and quality of the patient's care is not compromised This note was prepared using voice recognition software and direct typing Please excuse inadvertent boat canvas maker installer or typing errors, or uncorrected word substitutions Although every attempt has been made by the provider to proofread this document, occasional misspellings and typographical errors may still be present Due to the previous pandemic, and the use of personal protective equipment (PPE) This may decrease voice recognition accuracy Inadvertent boat canvas maker installer errors may occur 03/27/2024 BMI 25.0-25.9,adult (ICD-10 - Z68.25) #Weight [...] software and direct typing Please excuse inadvertent boat canvas maker installer or typing errors, or uncorrected word substitutions Although every attempt has been made by the provider to proofread this document, occasional misspellings and typographical errors may still be present Due to the previous pandemic, and the use of personal protective equipment (PPE) This may decrease voice recognition accuracy Inadvertent boat canvas maker installer errors may occur 03/27/2024 Overweight (BMI 25.0-29.9) (ICD-10 - E66.3) #Weight Management 03/27/2024 [facility] cont 5mng dosing now utilizing [employer] [facility] pay Total time spent today [...] software and direct typing Please excuse inadvertent boat canvas maker installer or typing errors, or uncorrected word substitutions Although every attempt has been made by the provider to proofread this document, occasional misspellings and typographical errors may still be present Due to the previous pandemic, and the use of personal protective equipment (PPE) This may decrease voice recognition accuracy Inadvertent boat canvas maker installer errors may occur 01/19/2024 Overweight (BMI 25.0-29.9) (ICD-10 - E66.3) #Weight Management 01/19/2024 [facility] Will send 5 mg dose to [facility] [employer] [facility] direct vieyra Discussed importance of protein consumption for muscle maintenance as well as probiotics, B12 complex biotin , iron and other nutrients, To help avoid telogen effluvium while on weight loss medications such as GLP-1 Total time spent today was 30 minutes [...] mentioned above and not solely appetite suppression. We have discussed the mechanism of GLP-1's/GIP I think this would be fantastic option for her given her metabolic workup and body composition We have discussed the risks and benefits and side effects including/and not limited to Sarcopenia, intestinal obstruction, constipation, nausea, lethargy, headache There is no history of medullary thyroid cancer or multiple endocrine neoplasia There is also no history of cardiovascular disease, hypertension, palpitations, or arrhythmias In the setting of potential stimulant/amphetam ine use such as phentermine Patient was reassured and welcomed to the practice. We discussed that we stress a hollistic medical approach with emphasis on lifestyle modification. Patient was informed that a healthy lifestyle with exercise and good eating habits can help reduce his risk of medical complications. He is explained that obesity increases his risk of diabetes, cardiovascular disease, or organ damage. We spent a lot of time discussing the relationship between food, exercise, sleep, mental health and obesity. Patient was counseled on the importance EATING local, organic food when possible. Patient was educated on clean 15 and dirty dozen. I provided information about reading books called The Food Rules by Eugene Oliver and Eat Fat Get Lean by Dr Tate Che. Self education is important in the journey for weight management. Patient was offered diagnostic testing. We want to measure visceral adiposity, advanced body composition, adverse lipids, fatty acid balance, risk for heart disease and atherosclerosis, markers of inflammation and genetic susceptibility. Patient was counseled on weight management and was advised to lose weight using A. Meal Replacement Products Patient was educated on the replacement products called optifast. This is a good way of taking fixed amount of calories. It has been shown in studies to be ineffective weight management tool. This however has to be coupled with lifestyle intervention as well as laboratory data and EKG monitoring. It is impossible to know how a person will tolerate complete meal replacement. The side effects of meal replacement and weight loss could include syncopal attacks, dizziness, gallstones, potential cholecystectomy, possible heart attack and even . The benefits of meal replacement would be potential weight loss but no guarantees can be made. Meal replacement products are not covered by insurance. Once the patient has bought these products we cannot return them B. Lifestyle management which includes several strategies as below 1. Eat a low carbohydrate good fat good protein diet. Eliminate refined carbohydrates from the diet. Continue blood sugar and sugared beverages. Eat local organic when possible. Cook your own meals. Read food labels. None about healthy snacks. Portion control and food with low glycemic index 2. Exercise regularly. Try to get at least 6000 steps a day. Use a predominant to track activity level. Consider using apps like Boombotix, [employer], lose it, stick as needed for self-monitoring and weight management. Consider group exercises. Consider hiring a personal development educator. Regular exercise is ocampo to sustainable health and prevents as a buffer against weight regain 3. Sleep is most important for healing. Tried to sleep at least 8 hours a night. A good quality sleep needs a sleep ritual with ideal room temperature of around 68. It might help to take a shower and have no electronics in the room and sleep in a very dark room without artificial light. Start her sleep routine and get up early in the morning and go to bed on time 4. Make a social connection. Surround yourself with positive people with positive energy. Connect with friends and family. 5. Get into the habit of meditating and mindfulness while doing everything. 6. Go outside and connect with nature. C. Prescription medications Patient was educated on the use of prescription medications for medical weight loss. This is a growing list and includes phentermine, Topamax,Qsymia, contrave, belviq and saxenda. All prescription medications could have side effects including but not limited to kidney stones, seizure disorder cardiac arrhythmias heart attack pancreatitis etc. etc.. Patient was encouraged to read the prescription insert and have coaching with their pharmacist and make an informed decision about taking medication and know that these medications are being prescribed with good intentions and we do not know how a patient would react to her medication. Sudden medications are FDA approved for weight loss and there is also off label use depending on patient's inability to afford medications in an attempt to lose weight D. Behavioral counseling was done to establish a relationship between food and an mood. Patient was provided information about local counseling and psychiatry and Dr Patterson at [facility]. We would like to cover regular topics and build on low glycemic eating exercise mindful eating, using yoga and meditation along with deep breathing and connecting with friends and family. E. MASS PAT reviewed, Patient's current medications were reviewed and opinion was given on medication that can cause weight gain and can be substituted F. Patient was assessed for risk with obesity including and not limiting to atherosclerosis heart disease stroke kidney disease, restrictive lung disease, irritable bowel syndrome and overall mortality. Risk of developing prediabetes diabetes and metabolic syndrome was discussed G. Therapeutic plan: We have decided to make therapeutic plan which would include choosing wisely on calories restricting portion getting active, tracking weight, getting good quality sleep and working on time management H. Patient will follow up in (4) weeks for weight management Of note, some information is being carried forward from prior records for informational purposes only and is being cited so that efficiency, safety and quality of the patient's care is not compromised This note was prepared using voice recognition software and direct typing Please excuse inadvertent boat canvas maker installer or typing errors, or uncorrected word substitutions Although every attempt has been made by the provider to proofread this document, occasional misspellings and typographical errors may still be present Due to the previous pandemic, and the use of personal protective equipment (PPE) This may decrease voice recognition accuracy Inadvertent boat canvas maker installer errors may occur 11/17/2023 Overweight (BMI 25.0-29.9) (ICD-10 - E66.3) #Weight Management 11/17/2023 [facility] Continue maintenance dosing, 5 mg every other week Discussed importance of protein consumption for muscle maintenance as well as probiotics, B12 complex biotin , iron and other nutrients, To help avoid telogen effluvium while on weight loss medications such as GLP-1 Total time spent today was 30 minutes [...] mentioned above and not solely appetite suppression. We have discussed the mechanism of GLP-1's/GIP I think this would be fantastic option for her given her metabolic workup and body composition We have discussed the risks and benefits and side effects including/and not limited to Sarcopenia, intestinal obstruction, constipation, nausea, lethargy, headache There is no history of medullary thyroid cancer or multiple endocrine neoplasia There is also no history of cardiovascular disease, hypertension, palpitations, or arrhythmias In the setting of potential stimulant/amphetam ine use such as phentermine Patient was reassured and welcomed to the practice. We discussed that we stress a hollistic medical approach with emphasis on lifestyle modification. Patient was informed that a healthy lifestyle with exercise and good eating habits can help reduce his risk of medical complications. He is explained that obesity increases his risk of diabetes, cardiovascular disease, or organ damage. We spent a lot of time discussing the relationship between food, exercise, sleep, mental health and obesity. Patient was counseled on the importance EATING local, organic food when possible. Patient was educated on clean 15 and dirty dozen. I provided information about reading books called The Food Rules by Eugene Oliver and Eat Fat Get Lean by Dr Tate Che. Self education is important in the journey for weight management. Patient was offered diagnostic testing. We want to measure visceral adiposity, advanced body composition, adverse lipids, fatty acid balance, risk for heart disease and atherosclerosis, markers of inflammation and genetic susceptibility. Patient was counseled on weight management and was advised to lose weight using A. Meal Replacement Products Patient was educated on the replacement products called optifast. This is a good way of taking fixed amount of calories. It has been shown in studies to be ineffective weight management tool. This however has to be coupled with lifestyle intervention as well as laboratory data and EKG monitoring. It is impossible to know how a person will tolerate complete meal replacement. The side effects of meal replacement and weight loss could include syncopal attacks, dizziness, gallstones, potential cholecystectomy, possible heart attack and even . The benefits of meal replacement would be potential weight loss but no guarantees can be made. Meal replacement products are not covered by insurance. Once the patient has bought these products we cannot return them B. Lifestyle management which includes several strategies as below 1. Eat a low carbohydrate good fat good protein diet. Eliminate refined carbohydrates from the diet. Continue blood sugar and sugared beverages. Eat local organic when possible. Cook your own meals. Read food labels. None about healthy snacks. Portion control and food with low glycemic index 2. Exercise regularly. Try to get at least 6000 steps a day. Use a predominant to track activity level. Consider using apps like Boombotix, myfitnesspal, lose it, stick as needed for self-monitoring and weight management. Consider group exercises. Consider hiring a personal development educator. Regular exercise is ocampo to sustainable health and prevents as a buffer against weight regain 3. Sleep is most important for healing. Tried to sleep at least 8 hours a night. A good quality sleep needs a sleep ritual with ideal room temperature of around 68. It might help to take a shower and have no electronics in the room and sleep in a very dark room without artificial light. Start her sleep routine and get up early in the morning and go to bed on time 4. Make a social connection. Surround yourself with positive people with positive energy. Connect with friends and family. 5. Get into the habit of meditating and mindfulness while doing everything. 6. Go outside and connect with nature. C. Prescription medications Patient was educated on the use of prescription medications for medical weight loss. This is a growing list and includes phentermine, Topamax,Qsymia, contrave, belviq and saxenda. All prescription medications could have side effects including but not limited to kidney stones, seizure disorder cardiac arrhythmias heart attack pancreatitis etc. etc.. Patient was encouraged to read the prescription insert and have coaching with their pharmacist and make an informed decision about taking medication and know that these medications are being prescribed with good intentions and we do not know how a patient would react to her medication. Sudden medications are FDA approved for weight loss and there is also off label use depending on patient's inability to afford medications in an attempt to lose weight D. Behavioral counseling was done to establish a relationship between food and an mood. Patient was provided information about local counseling and psychiatry and Dr Patterson at [facility]. We would like to cover regular topics and build on low glycemic eating exercise mindful eating, using yoga and meditation along with deep breathing and connecting with friends and family. E. MASS PAT reviewed, Patient's current medications were reviewed and opinion was given on medication that can cause weight gain and can be substituted F. Patient was assessed for risk with obesity including and not limiting to atherosclerosis heart disease stroke kidney disease, restrictive lung disease, irritable bowel syndrome and overall mortality. Risk of developing prediabetes diabetes and metabolic syndrome was discussed G. Therapeutic plan: We have decided to make therapeutic plan which would include choosing wisely on calories restricting portion getting active, tracking weight, getting good quality sleep and working on time management H. Patient will follow up in (4) weeks for weight management Of note, some information is being carried forward from prior records for informational purposes only and is being cited so that efficiency, safety and quality of the patient's care is not compromised This note was prepared using voice recognition software and direct typing Please excuse inadvertent boat canvas maker installer or typing errors, or uncorrected word substitutions Although every attempt has been made by the provider to proofread this document, occasional misspellings and typographical errors may still be present Due to the previous pandemic, and the use of personal protective equipment (PPE) This may decrease voice recognition accuracy Inadvertent boat canvas maker installer errors may occur 11/17/2023 Overweight (BMI 25.0-29.9) (ICD-10 - E66.3) #Weight Management 11/17/2023 Review labs [facility] Continue maintenance dosing, 5 mg every other week Discussed importance of protein consumption for muscle maintenance as well as probiotics, B12 complex biotin , iron and other nutrients, To help avoid telogen effluvium while on weight loss medications such as GLP-1 Total time spent today was 30 minutes [...] mentioned above and not solely appetite suppression. We have discussed the mechanism of GLP-1's/GIP I think this would be fantastic option for her given her metabolic workup and body composition We have discussed the risks and benefits and side effects including/and not limited to Sarcopenia, intestinal obstruction, constipation, nausea, lethargy, headache There is no history of medullary thyroid cancer or multiple endocrine neoplasia There is also no history of cardiovascular disease, hypertension, palpitations, or arrhythmias In the setting of potential stimulant/amphetam ine use such as phentermine Patient was reassured and welcomed to the practice. We discussed that we stress a hollistic medical approach with emphasis on lifestyle modification. Patient was informed that a healthy lifestyle with exercise and good eating habits can help reduce his risk of medical complications. He is explained that obesity increases his risk of diabetes, cardiovascular disease, or organ damage. We spent a lot of time discussing the relationship between food, exercise, sleep, mental health and obesity. Patient was counseled on the importance EATING local, organic food when possible. Patient was educated on clean 15 and dirty dozen. I provided information about reading books called The Food Rules by Eugene Oliver and Eat Fat Get Lean by Dr Tate Che. Self education is important in the journey for weight management. Patient was offered diagnostic testing. We want to measure visceral adiposity, advanced body composition, adverse lipids, fatty acid balance, risk for heart disease and atherosclerosis, markers of inflammation and genetic susceptibility. Patient was counseled on weight management and was advised to lose weight using A. Meal Replacement Products Patient was educated on the replacement products called optifast. This is a good way of taking fixed amount of calories. It has been shown in studies to be ineffective weight management tool. This however has to be coupled with lifestyle intervention as well as laboratory data and EKG monitoring. It is impossible to know how a person will tolerate complete meal replacement. The side effects of meal replacement and weight loss could include syncopal attacks, dizziness, gallstones, potential cholecystectomy, possible heart attack and even . The benefits of meal replacement would be potential weight loss but no guarantees can be made. Meal replacement products are not covered by insurance. Once the patient has bought these products we cannot return them B. Lifestyle management which includes several strategies as below 1. Eat a low carbohydrate good fat good protein diet. Eliminate refined carbohydrates from the diet. Continue blood sugar and sugared beverages. Eat local organic when possible. Cook your own meals. Read food labels. None about healthy snacks. Portion control and food with low glycemic index 2. Exercise regularly. Try to get at least 6000 steps a day. Use a predominant to track activity level. Consider using apps like Boombotix, myfitJumpOffCampuspal, lose it, stick as needed for self-monitoring and weight management. Consider group exercises. Consider hiring a personal development educator. Regular exercise is ocampo to sustainable health and prevents as a buffer against weight regain 3. Sleep is most important for healing. Tried to sleep at least 8 hours a night. A good quality sleep needs a sleep ritual with ideal room temperature of around 68. It might help to take a shower and have no electronics in the room and sleep in a very dark room without artificial light. Start her sleep routine and get up early in the morning and go to bed on time 4. Make a social connection. Surround yourself with positive people with positive energy. Connect with friends and family. 5. Get into the habit of meditating and mindfulness while doing everything. 6. Go outside and connect with nature. C. Prescription medications Patient was educated on the use of prescription medications for medical weight loss. This is a growing list and includes phentermine, Topamax,Qsymia, contrave, belviq and saxenda. All prescription medications could have side effects including but not limited to kidney stones, seizure disorder cardiac arrhythmias heart attack pancreatitis etc. etc.. Patient was encouraged to read the prescription insert and have coaching with their pharmacist and make an informed decision about taking medication and know that these medications are being prescribed with good intentions and we do not know how a patient would react to her medication. Sudden medications are FDA approved for weight loss and there is also off label use depending on patient's inability to afford medications in an attempt to lose weight D. Behavioral counseling was done to establish a relationship between food and an mood. Patient was provided information about local counseling and psychiatry and Dr Patterson at [facility]. We would like to cover regular topics and build on low glycemic eating exercise mindful eating, using yoga and meditation along with deep breathing and connecting with friends and family. E. MASS PAT reviewed, Patient's current medications were reviewed and opinion was given on medication that can cause weight gain and can be substituted F. Patient was assessed for risk with obesity including and not limiting to atherosclerosis heart disease stroke kidney disease, restrictive lung disease, irritable bowel syndrome and overall mortality. Risk of developing prediabetes diabetes and metabolic syndrome was discussed G. Therapeutic plan: We have decided to make therapeutic plan which would include choosing wisely on calories restricting portion getting active, tracking weight, getting good quality sleep and working on time management H. Patient will follow up in (4) weeks for weight management Of note, some information is being carried forward from prior records for informational purposes only and is being cited so that efficiency, safety and quality of the patient's care is not compromised This note was prepared using voice recognition software and direct typing Please excuse inadvertent boat canvas maker installer or typing errors, or uncorrected word substitutions Although every attempt has been made by the provider to proofread this document, occasional misspellings and typographical errors may still be present Due to the previous pandemic, and the use of personal protective equipment (PPE) This may decrease voice recognition accuracy Inadvertent boat canvas maker installer errors may occur 08/03/2023 Migraine without aura and without status migrainosus, not intractable (ICD-10 - G43.009) #Weight Management 08/03/2023 [facility] Continue maintenance dosing, 5 mg every other week Discussed importance of protein consumption for muscle maintenance as well as probiotics, B12 complex biotin , iron and other nutrients, To help avoid telogen effluvium while on weight loss medications such as GLP-1 Total time spent today was 30 minutes [...] mentioned above and not solely appetite suppression. We have discussed the mechanism of GLP-1's/GIP I think this would be fantastic option for her given her metabolic workup and body composition We have discussed the risks and benefits and side effects including/and not limited to Sarcopenia, intestinal obstruction, constipation, nausea, lethargy, headache There is no history of medullary thyroid cancer or multiple endocrine neoplasia There is also no history of cardiovascular disease, hypertension, palpitations, or arrhythmias In the setting of potential stimulant/amphetam ine use such as phentermine Patient was reassured and welcomed to the practice. We discussed that we stress a hollistic medical approach with emphasis on lifestyle modification. Patient was informed that a healthy lifestyle with exercise and good eating habits can help reduce his risk of medical complications. He is explained that obesity increases his risk of diabetes, cardiovascular disease, or organ damage. We spent a lot of time discussing the relationship between food, exercise, sleep, mental health and obesity. Patient was counseled on the importance EATING local, organic food when possible. Patient was educated on clean 15 and dirty dozen. I provided information about reading books called The Food Rules by Eugene Oliver and Eat Fat Get Lean by Dr Tate Che. Self education is important in the journey for weight management. Patient was offered diagnostic testing. We want to measure visceral adiposity, advanced body composition, adverse lipids, fatty acid balance, risk for heart disease and atherosclerosis, markers of inflammation and genetic susceptibility. Patient was counseled on weight management and was advised to lose weight using A. Meal Replacement Products Patient was educated on the replacement products called optifast. This is a good way of taking fixed amount of calories. It has been shown in studies to be ineffective weight management tool. This however has to be coupled with lifestyle intervention as well as laboratory data and EKG monitoring. It is impossible to know how a person will tolerate complete meal replacement. The side effects of meal replacement and weight loss could include syncopal attacks, dizziness, gallstones, potential cholecystectomy, possible heart attack and even . The benefits of meal replacement would be potential weight loss but no guarantees can be made. Meal replacement products are not covered by insurance. Once the patient has bought these products we cannot return them B. Lifestyle management which includes several strategies as below 1. Eat a low carbohydrate good fat good protein diet. Eliminate refined carbohydrates from the diet. Continue blood sugar and sugared beverages. Eat local organic when possible. Cook your own meals. Read food labels. None about healthy snacks. Portion control and food with low glycemic index 2. Exercise regularly. Try to get at least 6000 steps a day. Use a predominant to track activity level. Consider using apps like Boombotix, Voyandopal, lose it, stick as needed for self-monitoring and weight management. Consider group exercises. Consider hiring a personal development educator. Regular exercise is ocampo to sustainable health and prevents as a buffer against weight regain 3. Sleep is most important for healing. Tried to sleep at least 8 hours a night. A good quality sleep needs a sleep ritual with ideal room temperature of around 68. It might help to take a shower and have no electronics in the room and sleep in a very dark room without artificial light. Start her sleep routine and get up early in the morning and go to bed on time 4. Make a social connection. Surround yourself with positive people with positive energy. Connect with friends and family. 5. Get into the habit of meditating and mindfulness while doing everything. 6. Go outside and connect with nature. C. Prescription medications Patient was educated on the use of prescription medications for medical weight loss. This is a growing list and includes phentermine, Topamax,Qsymia, contrave, belviq and saxenda. All prescription medications could have side effects including but not limited to kidney stones, seizure disorder cardiac arrhythmias heart attack pancreatitis etc. etc.. Patient was encouraged to read the prescription insert and have coaching with their pharmacist and make an informed decision about taking medication and know that these medications are being prescribed with good intentions and we do not know how a patient would react to her medication. Sudden medications are FDA approved for weight loss and there is also off label use depending on patient's inability to afford medications in an attempt to lose weight D. Behavioral counseling was done to establish a relationship between food and an mood. Patient was provided information about local counseling and psychiatry and Dr Patterson at [facility]. We would like to cover regular topics and build on low glycemic eating exercise mindful eating, using yoga and meditation along with deep breathing and connecting with friends and family. E. MASS PAT reviewed, Patient's current medications were reviewed and opinion was given on medication that can cause weight gain and can be substituted F. Patient was assessed for risk with obesity including and not limiting to atherosclerosis heart disease stroke kidney disease, restrictive lung disease, irritable bowel syndrome and overall mortality. Risk of developing prediabetes diabetes and metabolic syndrome was discussed G. Therapeutic plan: We have decided to make therapeutic plan which would include choosing wisely on calories restricting portion getting active, tracking weight, getting good quality sleep and working on time management H. Patient will follow up in (4) weeks for weight management Of note, some information is being carried forward from prior records for informational purposes only and is being cited so that efficiency, safety and quality of the patient's care is not compromised This note was prepared using voice recognition software and direct typing Please excuse inadvertent boat canvas maker installer or typing errors, or uncorrected word substitutions Although every attempt has been made by the provider to proofread this document, occasional misspellings and typographical errors may still be present Due to the previous pandemic, and the use of personal protective equipment (PPE) This may decrease voice recognition accuracy Inadvertent boat canvas maker installer errors may occur 09/20/2023 Dietary counseling and surveillance (ICD-10 - Z71.3) #Weight Management 09/20/2023 Review labs [facility] Continue maintenance dosing, 5 mg every other week Discussed importance of protein consumption for muscle maintenance as well as probiotics, B12 complex biotin , iron and other nutrients, To help avoid telogen effluvium while on weight loss medications such as GLP-1 Total time spent today was 30 minutes [...] mentioned above and not solely appetite suppression. We have discussed the mechanism of GLP-1's/GIP I think this would be fantastic option for her given her metabolic workup and body composition We have discussed the risks and benefits and side effects including/and not limited to Sarcopenia, intestinal obstruction, constipation, nausea, lethargy, headache There is no history of medullary thyroid cancer or multiple endocrine neoplasia There is also no history of cardiovascular disease, hypertension, palpitations, or arrhythmias In the setting of potential stimulant/amphetam ine use such as phentermine Patient was reassured and welcomed to the practice. We discussed that we stress a hollistic medical approach with emphasis on lifestyle modification. Patient was informed that a healthy lifestyle with exercise and good eating habits can help reduce his risk of medical complications. He is explained that obesity increases his risk of diabetes, cardiovascular disease, or organ damage. We spent a lot of time discussing the relationship between food, exercise, sleep, mental health and obesity. Patient was counseled on the importance EATING local, organic food when possible. Patient was educated on clean 15 and dirty dozen. I provided information about reading books called The Food Rules by Eugene Oliver and Eat Fat Get Lean by Dr Tate Che. Self education is important in the journey for weight management. Patient was offered diagnostic testing. We want to measure visceral adiposity, advanced body composition, adverse lipids, fatty acid balance, risk for heart disease and atherosclerosis, markers of inflammation and genetic susceptibility. Patient was counseled on weight management and was advised to lose weight using A. Meal Replacement Products Patient was educated on the replacement products called optifast. This is a good way of taking fixed amount of calories. It has been shown in studies to be ineffective weight management tool. This however has to be coupled with lifestyle intervention as well as laboratory data and EKG monitoring. It is impossible to know how a person will tolerate complete meal replacement. The side effects of meal replacement and weight loss could include syncopal attacks, dizziness, gallstones, potential cholecystectomy, possible heart attack and even . The benefits of meal replacement would be potential weight loss but no guarantees can be made. Meal replacement products are not covered by insurance. Once the patient has bought these products we cannot return them B. Lifestyle management which includes several strategies as below 1. Eat a low carbohydrate good fat good protein diet. Eliminate refined carbohydrates from the diet. Continue blood sugar and sugared beverages. Eat local organic when possible. Cook your own meals. Read food labels. None about healthy snacks. Portion control and food with low glycemic index 2. Exercise regularly. Try to get at least 6000 steps a day. Use a predominant to track activity level. Consider using apps like Boombotix, Voyandopal, lose it, stick as needed for self-monitoring and weight management. Consider group exercises. Consider hiring a personal development educator. Regular exercise is ocampo to sustainable health and prevents as a buffer against weight regain 3. Sleep is most important for healing. Tried to sleep at least 8 hours a night. A good quality sleep needs a sleep ritual with ideal room temperature of around 68. It might help to take a shower and have no electronics in the room and sleep in a very dark room without artificial light. Start her sleep routine and get up early in the morning and go to bed on time 4. Make a social connection. Surround yourself with positive people with positive energy. Connect with friends and family. 5. Get into the habit of meditating and mindfulness while doing everything. 6. Go outside and connect with nature. C. Prescription medications Patient was educated on the use of prescription medications for medical weight loss. This is a growing list and includes phentermine, Topamax,Qsymia, contrave, belviq and saxenda. All prescription medications could have side effects including but not limited to kidney stones, seizure disorder cardiac arrhythmias heart attack pancreatitis etc. etc.. Patient was encouraged to read the prescription insert and have coaching with their pharmacist and make an informed decision about taking medication and know that these medications are being prescribed with good intentions and we do not know how a patient would react to her medication. Sudden medications are FDA approved for weight loss and there is also off label use depending on patient's inability to afford medications in an attempt to lose weight D. Behavioral counseling was done to establish a relationship between food and an mood. Patient was provided information about local counseling and psychiatry and Dr Patterson at [facility]. We would like to cover regular topics and build on low glycemic eating exercise mindful eating, using yoga and meditation along with deep breathing and connecting with friends and family. E. MASS PAT reviewed, Patient's current medications were reviewed and opinion was given on medication that can cause weight gain and can be substituted F. Patient was assessed for risk with obesity including and not limiting to atherosclerosis heart disease stroke kidney disease, restrictive lung disease, irritable bowel syndrome and overall mortality. Risk of developing prediabetes diabetes and metabolic syndrome was discussed G. Therapeutic plan: We have decided to make therapeutic plan which would include choosing wisely on calories restricting portion getting active, tracking weight, getting good quality sleep and working on time management H. Patient will follow up in (4) weeks for weight management Of note, some information is being carried forward from prior records for informational purposes only and is being cited so that efficiency, safety and quality of the patient's care is not compromised This note was prepared using voice recognition software and direct typing Please excuse inadvertent boat canvas maker installer or typing errors, or uncorrected word substitutions Although every attempt has been made by the provider to proofread this document, occasional misspellings and typographical errors may still be present Due to the previous pandemic, and the use of personal protective equipment (PPE) This may decrease voice recognition accuracy Inadvertent boat canvas maker installer errors may occur 05/12/2023 Migraine without aura and without status migrainosus, not intractable (ICD-10 - G43.009) [facility] Continue maintenance dosing, 5 mg every other week Discussed importance of protein consumption for muscle maintenance as well as probiotics, B12 complex biotin , iron and other nutrients, To help avoid telogen effluvium while on weight loss medications such as GLP-1 Total time spent today was 30 minutes of which greater than 50% was spent on coordinating and counseling We are a board certified obesity and weight management practice Patient has trialed behavioral modification, dietary restrictions and exercise for a minimum of 6 months Patient counseled regarding effects of GLP/GIP-1 agonists, and other FDA approved wgt loss meds with regards to a multifactorial approach of weight loss as mentioned above and not solely appetite suppression. We have discussed the mechanism of GLP-1's/GIP I think this would be fantastic option for her given her metabolic workup and body composition We have discussed the risks and benefits and side effects including/and not limited to Sarcopenia, intestinal obstruction, constipation, nausea, lethargy, headache There is no history of medullary thyroid cancer or multiple endocrine neoplasia There is also no history of cardiovascular disease, hypertension, palpitations, or arrhythmias In the setting of potential stimulant/amphetam ine use such as phentermine Patient has been found to be overweight with a BMI of (25). Patient was reassured and welcomed to the practice. We discussed that we stress a hollistic medical approach with emphasis on lifestyle modification. Patient was informed that a healthy lifestyle with exercise and good eating habits can help reduce his risk of medical complications. He is explained that obesity increases his risk of diabetes, cardiovascular disease, or organ damage. We spent a lot of time discussing the relationship between food, exercise, sleep, mental health and obesity. Patient was counseled on the importance EATING local, organic food when possible. Patient was educated on clean 15 and dirty dozen. I provided information about reading books called The Food Rules by Eugene Oliver and Eat Fat Get Lean by Dr Tate Che. Self education is important in the journey for weight management. Patient was offered diagnostic testing. We want to measure visceral adiposity, advanced body composition, adverse lipids, fatty acid balance, risk for heart disease and atherosclerosis, markers of inflammation and genetic susceptibility. Patient was counseled on weight management and was advised to lose weight using A. Meal Replacement Products Patient was educated on the replacement products called optifast. This is a good way of taking fixed amount of calories. It has been shown in studies to be ineffective weight management tool. This however has to be coupled with lifestyle intervention as well as laboratory data and EKG monitoring. It is impossible to know how a person will tolerate complete meal replacement. The side effects of meal replacement and weight loss could include syncopal attacks, dizziness, gallstones, potential cholecystectomy, possible heart attack and even . The benefits of meal replacement would be potential weight loss but no guarantees can be made. Meal replacement products are not covered by insurance. Once the patient has bought these products we cannot return them B. Lifestyle management which includes several strategies as below 1. Eat a low carbohydrate good fat good protein diet. Eliminate refined carbohydrates from the diet. Continue blood sugar and sugared beverages. Eat local organic when possible. Cook your own meals. Read food labels. None about healthy snacks. Portion control and food with low glycemic index 2. Exercise regularly. Try to get at least 6000 steps a day. Use a predominant to track activity level. Consider using apps like Boombotix, Voyandopal, lose it, stick as needed for self-monitoring and weight management. Consider group exercises. Consider hiring a personal development educator. Regular exercise is ocampo to sustainable health and prevents as a buffer against weight regain 3. Sleep is most important for healing. Tried to sleep at least 8 hours a night. A good quality sleep needs a sleep ritual with ideal room temperature of around 68. It might help to take a shower and have no electronics in the room and sleep in a very dark room without artificial light. Start her sleep routine and get up early in the morning and go to bed on time 4. Make a social connection. Surround yourself with positive people with positive energy. Connect with friends and family. 5. Get into the habit of meditating and mindfulness while doing everything. 6. Go outside and connect with nature. C. Prescription medications Patient was educated on the use of prescription medications for medical weight loss. This is a growing list and includes phentermine, Topamax,Qsymia, contrave, belviq and saxenda. All prescription medications could have side effects including but not limited to kidney stones, seizure disorder cardiac arrhythmias heart attack pancreatitis etc. etc.. Patient was encouraged to read the prescription insert and have coaching with their pharmacist and make an informed decision about taking medication and know that these medications are being prescribed with good intentions and we do not know how a patient would react to her medication. Sudden medications are FDA approved for weight loss and there is also off label use depending on patient's inability to afford medications in an attempt to lose weight D. Behavioral counseling was done to establish a relationship between food and an mood. Patient was provided information about local counseling and psychiatry and Dr Patterson at [facility]. We would like to cover regular topics and build on low glycemic eating exercise mindful eating, using yoga and meditation along with deep breathing and connecting with friends and family. E. MASS PAT reviewed, Patient's current medications were reviewed and opinion was given on medication that can cause weight gain and can be substituted F. Patient was assessed for risk with obesity including and not limiting to atherosclerosis heart disease stroke kidney disease, restrictive lung disease, irritable bowel syndrome and overall mortality. Risk of developing prediabetes diabetes and metabolic syndrome was discussed G. Therapeutic plan: We have decided to make therapeutic plan which would include choosing wisely on calories restricting portion getting active, tracking weight, getting good quality sleep and working on time management H. Patient will follow up in (4) weeks for weight management Of note, some information is being carried forward from prior records for informational purposes only and is being cited so that efficiency, safety and quality of the patient's care is not compromised This note was prepared using voice recognition software and direct typing Please excuse inadvertent boat canvas maker installer or typing errors, or uncorrected word substitutions Although every attempt has been made by the provider to proofread this document, occasional misspellings and typographical errors may still be present Due to the previous pandemic, and the use of personal protective equipment (PPE) This may decrease voice recognition accuracy Inadvertent boat canvas maker installer errors may occur 05/12/2023 Overweight (BMI 25.0-29.9) (ICD-10 - E66.3) thriving Continue maintenance dosing, 5 mg every other week Discussed importance of protein consumption for muscle maintenance as well as probiotics, B12 complex biotin , iron and other nutrients, To help avoid telogen effluvium while on weight loss medications such as GLP-1 Total time spent today was 30 minutes of which greater than 50% was spent on coordinating and counseling We are a board certified obesity and weight management practice Patient has trialed behavioral modification, dietary restrictions and exercise for a minimum of 6 months Patient counseled regarding effects of GLP/GIP-1 agonists, and other FDA approved wgt loss meds with regards to a multifactorial approach of weight loss as mentioned above and not solely appetite suppression. We have discussed the mechanism of GLP-1's/GIP I think this would be fantastic option for her given her metabolic workup and body composition We have discussed the risks and benefits and side effects including/and not limited to Sarcopenia, intestinal obstruction, constipation, nausea, lethargy, headache There is no history of medullary thyroid cancer or multiple endocrine neoplasia There is also no history of cardiovascular disease, hypertension, palpitations, or arrhythmias In the setting of potential stimulant/amphetam ine use such as phentermine Patient has been found to be overweight with a BMI of (25). Patient was reassured and welcomed to the practice. We discussed that we stress a hollistic medical approach with emphasis on lifestyle modification. Patient was informed that a healthy lifestyle with exercise and good eating habits can help reduce his risk of medical complications. He is explained that obesity increases his risk of diabetes, cardiovascular disease, or organ damage. We spent a lot of time discussing the relationship between food, exercise, sleep, mental health and obesity. Patient was counseled on the importance EATING local, organic food when possible. Patient was educated on clean 15 and dirty dozen. I provided information about reading books called The Food Rules by Eugene Oliver and Eat Fat Get Lean by Dr Tate Che. Self education is important in the journey for weight management. Patient was offered diagnostic testing. We want to measure visceral adiposity, advanced body composition, adverse lipids, fatty acid balance, risk for heart disease and atherosclerosis, markers of inflammation and genetic susceptibility. Patient was counseled on weight management and was advised to lose weight using A. Meal Replacement Products Patient was educated on the replacement products called optifast. This is a good way of taking fixed amount of calories. It has been shown in studies to be ineffective weight management tool. This however has to be coupled with lifestyle intervention as well as laboratory data and EKG monitoring. It is impossible to know how a person will tolerate complete meal replacement. The side effects of meal replacement and weight loss could include syncopal attacks, dizziness, gallstones, potential cholecystectomy, possible heart attack and even . The benefits of meal replacement would be potential weight loss but no guarantees can be made. Meal replacement products are not covered by insurance. Once the patient has bought these products we cannot return them B. Lifestyle management which includes several strategies as below 1. Eat a low carbohydrate good fat good protein diet. Eliminate refined carbohydrates from the diet. Continue blood sugar and sugared beverages. Eat local organic when possible. Cook your own meals. Read food labels. None about healthy snacks. Portion control and food with low glycemic index 2. Exercise regularly. Try to get at least 6000 steps a day. Use a predominant to track activity level. Consider using apps like Boombotix, Voyandopal, lose it, stick as needed for self-monitoring and weight management. Consider group exercises. Consider hiring a personal development educator. Regular exercise is ocampo to sustainable health and prevents as a buffer against weight regain 3. Sleep is most important for healing. Tried to sleep at least 8 hours a night. A good quality sleep needs a sleep ritual with ideal room temperature of around 68. It might help to take a shower and have no electronics in the room and sleep in a very dark room without artificial light. Start her sleep routine and get up early in the morning and go to bed on time 4. Make a social connection. Surround yourself with positive people with positive energy. Connect with friends and family. 5. Get into the habit of meditating and mindfulness while doing everything. 6. Go outside and connect with nature. C. Prescription medications Patient was educated on the use of prescription medications for medical weight loss. This is a growing list and includes phentermine, Topamax,Qsymia, contrave, belviq and saxenda. All prescription medications could have side effects including but not limited to kidney stones, seizure disorder cardiac arrhythmias heart attack pancreatitis etc. etc.. Patient was encouraged to read the prescription insert and have coaching with their pharmacist and make an informed decision about taking medication and know that these medications are being prescribed with good intentions and we do not know how a patient would react to her medication. Sudden medications are FDA approved for weight loss and there is also off label use depending on patient's inability to afford medications in an attempt to lose weight D. Behavioral counseling was done to establish a relationship between food and an mood. Patient was provided information about local counseling and psychiatry and Dr Patterson at [facility]. We would like to cover regular topics and build on low glycemic eating exercise mindful eating, using yoga and meditation along with deep breathing and connecting with friends and family. E. MASS PAT reviewed, Patient's current medications were reviewed and opinion was given on medication that can cause weight gain and can be substituted F. Patient was assessed for risk with obesity including and not limiting to atherosclerosis heart disease stroke kidney disease, restrictive lung disease, irritable bowel syndrome and overall mortality. Risk of developing prediabetes diabetes and metabolic syndrome was discussed G. Therapeutic plan: We have decided to make therapeutic plan which would include choosing wisely on calories restricting portion getting active, tracking weight, getting good quality sleep and working on time management H. Patient will follow up in (4) weeks for weight management Of note, some information is being carried forward from prior records for informational purposes only and is being cited so that efficiency, safety and quality of the patient's care is not compromised This note was prepared using voice recognition software and direct typing Please excuse inadvertent boat canvas maker installer or typing errors, or uncorrected word substitutions Although every attempt has been made by the provider to proofread this document, occasional misspellings and typographical errors may still be present Due to the previous pandemic, and the use of personal protective equipment (PPE) This may decrease voice recognition accuracy Inadvertent boat canvas maker installer errors may occur 05/12/2023 BMI 25.0-25.9,adult (ICD-10 - Z68.25) thriving Continue maintenance dosing, 5 mg every other week Discussed importance of protein consumption for muscle maintenance as well as probiotics, B12 complex biotin , iron and other nutrients, To help avoid telogen effluvium while on weight loss medications such as GLP-1 Total time spent today was 30 minutes of which greater than 50% was spent on coordinating and counseling We are a board certified obesity and weight management practice Patient has trialed behavioral modification, dietary restrictions and exercise for a minimum of 6 months Patient counseled regarding effects of GLP/GIP-1 agonists, and other FDA approved wgt loss meds with regards to a multifactorial approach of weight loss as mentioned above and not solely appetite suppression. We have discussed the mechanism of GLP-1's/GIP I think this would be fantastic option for her given her metabolic workup and body composition We have discussed the risks and benefits and side effects including/and not limited to Sarcopenia, intestinal obstruction, constipation, nausea, lethargy, headache There is no history of medullary thyroid cancer or multiple endocrine neoplasia There is also no history of cardiovascular disease, hypertension, palpitations, or arrhythmias In the setting of potential stimulant/amphetam ine use such as phentermine Patient has been found to be overweight with a BMI of (25). Patient was reassured and welcomed to the practice. We discussed that we stress a hollistic medical approach with emphasis on lifestyle modification. Patient was informed that a healthy lifestyle with exercise and good eating habits can help reduce his risk of medical complications. He is explained that obesity increases his risk of diabetes, cardiovascular disease, or organ damage. We spent a lot of time discussing the relationship between food, exercise, sleep, mental health and obesity. Patient was counseled on the importance EATING local, organic food when possible. Patient was educated on clean 15 and dirty dozen. I provided information about reading books called The Food Rules by Eugene Oliver and Eat Fat Get Lean by Dr Tate Che. Self education is important in the journey for weight management. Patient was offered diagnostic testing. We want to measure visceral adiposity, advanced body composition, adverse lipids, fatty acid balance, risk for heart disease and atherosclerosis, markers of inflammation and genetic susceptibility. Patient was counseled on weight management and was advised to lose weight using A. Meal Replacement Products Patient was educated on the replacement products called optifast. This is a good way of taking fixed amount of calories. It has been shown in studies to be ineffective weight management tool. This however has to be coupled with lifestyle intervention as well as laboratory data and EKG monitoring. It is impossible to know how a person will tolerate complete meal replacement. The side effects of meal replacement and weight loss could include syncopal attacks, dizziness, gallstones, potential cholecystectomy, possible heart attack and even . The benefits of meal replacement would be potential weight loss but no guarantees can be made. Meal replacement products are not covered by insurance. Once the patient has bought these products we cannot return them B. Lifestyle management which includes several strategies as below 1. Eat a low carbohydrate good fat good protein diet. Eliminate refined carbohydrates from the diet. Continue blood sugar and sugared beverages. Eat local organic when possible. Cook your own meals. Read food labels. None about healthy snacks. Portion control and food with low glycemic index 2. Exercise regularly. Try to get at least 6000 steps a day. Use a predominant to track activity level. Consider using apps like Boombotix, myfitnesspal, lose it, stick as needed for self-monitoring and weight management. Consider group exercises. Consider hiring a personal development educator. Regular exercise is ocampo to sustainable health and prevents as a buffer against weight regain 3. Sleep is most important for healing. Tried to sleep at least 8 hours a night. A good quality sleep needs a sleep ritual with ideal room temperature of around 68. It might help to take a shower and have no electronics in the room and sleep in a very dark room without artificial light. Start her sleep routine and get up early in the morning and go to bed on time 4. Make a social connection. Surround yourself with positive people with positive energy. Connect with friends and family. 5. Get into the habit of meditating and mindfulness while doing everything. 6. Go outside and connect with nature. C. Prescription medications Patient was educated on the use of prescription medications for medical weight loss. This is a growing list and includes phentermine, Topamax,Qsymia, contrave, belviq and saxenda. All prescription medications could have side effects including but not limited to kidney stones, seizure disorder cardiac arrhythmias heart attack pancreatitis etc. etc.. Patient was encouraged to read the prescription insert and have coaching with their pharmacist and make an informed decision about taking medication and know that these medications are being prescribed with good intentions and we do not know how a patient would react to her medication. Sudden medications are FDA approved for weight loss and there is also off label use depending on patient's inability to afford medications in an attempt to lose weight D. Behavioral counseling was done to establish a relationship between food and an mood. Patient was provided information about local counseling and psychiatry and Dr Patterson at [facility]. We would like to cover regular topics and build on low glycemic eating exercise mindful eating, using yoga and meditation along with deep breathing and connecting with friends and family. E. MASS PAT reviewed, Patient's current medications were reviewed and opinion was given on medication that can cause weight gain and can be substituted F. Patient was assessed for risk with obesity including and not limiting to atherosclerosis heart disease stroke kidney disease, restrictive lung disease, irritable bowel syndrome and overall mortality. Risk of developing prediabetes diabetes and metabolic syndrome was discussed G. Therapeutic plan: We have decided to make therapeutic plan which would include choosing wisely on calories restricting portion getting active, tracking weight, getting good quality sleep and working on time management H. Patient will follow up in (4) weeks for weight management Of note, some information is being carried forward from prior records for informational purposes only and is being cited so that efficiency, safety and quality of the patient's care is not compromised This note was prepared using voice recognition software and direct typing Please excuse inadvertent boat canvas maker installer or typing errors, or uncorrected word substitutions Although every attempt has been made by the provider to proofread this document, occasional misspellings and typographical errors may still be present Due to the previous pandemic, and the use of personal protective equipment (PPE) This may decrease voice recognition accuracy Inadvertent boat canvas maker installer errors may occur 09/20/2023 Migraine without aura and without status migrainosus, not intractable (ICD-10 - G43.009) #Weight Management 09/20/2023 Review labs thriving Continue maintenance dosing, 5 mg every other week Discussed importance of protein consumption for muscle maintenance as well as probiotics, B12 complex biotin , iron and other nutrients, To help avoid telogen effluvium while on weight loss medications such as GLP-1 Total time spent today was 30 minutes [...] mentioned above and not solely appetite suppression. We have discussed the mechanism of GLP-1's/GIP I think this would be fantastic option for her given her metabolic workup and body composition We have discussed the risks and benefits and side effects including/and not limited to Sarcopenia, intestinal obstruction, constipation, nausea, lethargy, headache There is no history of medullary thyroid cancer or multiple endocrine neoplasia There is also no history of cardiovascular disease, hypertension, palpitations, or arrhythmias In the setting of potential stimulant/amphetam ine use such as phentermine Patient was reassured and welcomed to the practice. We discussed that we stress a hollistic medical approach with emphasis on lifestyle modification. Patient was informed that a healthy lifestyle with exercise and good eating habits can help reduce his risk of medical complications. He is explained that obesity increases his risk of diabetes, cardiovascular disease, or organ damage. We spent a lot of time discussing the relationship between food, exercise, sleep, mental health and obesity. Patient was counseled on the importance EATING local, organic food when possible. Patient was educated on clean 15 and dirty dozen. I provided information about reading books called The Food Rules by Eugene Oliver and Eat Fat Get Lean by Dr Tate Che. Self education is important in the journey for weight management. Patient was offered diagnostic testing. We want to measure visceral adiposity, advanced body composition, adverse lipids, fatty acid balance, risk for heart disease and atherosclerosis, markers of inflammation and genetic susceptibility. Patient was counseled on weight management and was advised to lose weight using A. Meal Replacement Products Patient was educated on the replacement products called optifast. This is a good way of taking fixed amount of calories. It has been shown in studies to be ineffective weight management tool. This however has to be coupled with lifestyle intervention as well as laboratory data and EKG monitoring. It is impossible to know how a person will tolerate complete meal replacement. The side effects of meal replacement and weight loss could include syncopal attacks, dizziness, gallstones, potential cholecystectomy, possible heart attack and even . The benefits of meal replacement would be potential weight loss but no guarantees can be made. Meal replacement products are not covered by insurance. Once the patient has bought these products we cannot return them B. Lifestyle management which includes several strategies as below 1. Eat a low carbohydrate good fat good protein diet. Eliminate refined carbohydrates from the diet. Continue blood sugar and sugared beverages. Eat local organic when possible. Cook your own meals. Read food labels. None about healthy snacks. Portion control and food with low glycemic index 2. Exercise regularly. Try to get at least 6000 steps a day. Use a predominant to track activity level. Consider using apps like Boombotix, Voyandopal, lose it, stick as needed for self-monitoring and weight management. Consider group exercises. Consider hiring a personal development educator. Regular exercise is ocampo to sustainable health and prevents as a buffer against weight regain 3. Sleep is most important for healing. Tried to sleep at least 8 hours a night. A good quality sleep needs a sleep ritual with ideal room temperature of around 68. It might help to take a shower and have no electronics in the room and sleep in a very dark room without artificial light. Start her sleep routine and get up early in the morning and go to bed on time 4. Make a social connection. Surround yourself with positive people with positive energy. Connect with friends and family. 5. Get into the habit of meditating and mindfulness while doing everything. 6. Go outside and connect with nature. C. Prescription medications Patient was educated on the use of prescription medications for medical weight loss. This is a growing list and includes phentermine, Topamax,Qsymia, contrave, belviq and saxenda. All prescription medications could have side effects including but not limited to kidney stones, seizure disorder cardiac arrhythmias heart attack pancreatitis etc. etc.. Patient was encouraged to read the prescription insert and have coaching with their pharmacist and make an informed decision about taking medication and know that these medications are being prescribed with good intentions and we do not know how a patient would react to her medication. Sudden medications are FDA approved for weight loss and there is also off label use depending on patient's inability to afford medications in an attempt to lose weight D. Behavioral counseling was done to establish a relationship between food and an mood. Patient was provided information about local counseling and psychiatry and Dr Patterson at [facility]. We would like to cover regular topics and build on low glycemic eating exercise mindful eating, using yoga and meditation along with deep breathing and connecting with friends and family. E. MASS PAT reviewed, Patient's current medications were reviewed and opinion was given on medication that can cause weight gain and can be substituted F. Patient was assessed for risk with obesity including and not limiting to atherosclerosis heart disease stroke kidney disease, restrictive lung disease, irritable bowel syndrome and overall mortality. Risk of developing prediabetes diabetes and metabolic syndrome was discussed G. Therapeutic plan: We have decided to make therapeutic plan which would include choosing wisely on calories restricting portion getting active, tracking weight, getting good quality sleep and working on time management H. Patient will follow up in (4) weeks for weight management Of note, some information is being carried forward from prior records for informational purposes only and is being cited so that efficiency, safety and quality of the patient's care is not compromised This note was prepared using voice recognition software and direct typing Please excuse inadvertent boat canvas maker installer or typing errors, or uncorrected word substitutions Although every attempt has been made by the provider to proofread this document, occasional misspellings and typographical errors may still be present Due to the previous pandemic, and the use of personal protective equipment (PPE) This may decrease voice recognition accuracy Inadvertent boat canvas maker installer errors may occur 11/17/2023 Dietary counseling and surveillance (ICD-10 - Z71.3) #Weight Management 11/17/2023 Review labs thriving Continue maintenance dosing, 5 mg every other week Discussed importance of protein consumption for muscle maintenance as well as probiotics, B12 complex biotin , iron and other nutrients, To help avoid telogen effluvium while on weight loss medications such as GLP-1 Total time spent today was 30 minutes [...] mentioned above and not solely appetite suppression. We have discussed the mechanism of GLP-1's/GIP I think this would be fantastic option for her given her metabolic workup and body composition We have discussed the risks and benefits and side effects including/and not limited to Sarcopenia, intestinal obstruction, constipation, nausea, lethargy, headache There is no history of medullary thyroid cancer or multiple endocrine neoplasia There is also no history of cardiovascular disease, hypertension, palpitations, or arrhythmias In the setting of potential stimulant/amphetam ine use such as phentermine Patient was reassured and welcomed to the practice. We discussed that we stress a hollistic medical approach with emphasis on lifestyle modification. Patient was informed that a healthy lifestyle with exercise and good eating habits can help reduce his risk of medical complications. He is explained that obesity increases his risk of diabetes, cardiovascular disease, or organ damage. We spent a lot of time discussing the relationship between food, exercise, sleep, mental health and obesity. Patient was counseled on the importance EATING local, organic food when possible. Patient was educated on clean 15 and dirty dozen. I provided information about reading books called The Food Rules by Eugene Oliver and Eat Fat Get Lean by Dr Tate Che. Self education is important in the journey for weight management. Patient was offered diagnostic testing. We want to measure visceral adiposity, advanced body composition, adverse lipids, fatty acid balance, risk for heart disease and atherosclerosis, markers of inflammation and genetic susceptibility. Patient was counseled on weight management and was advised to lose weight using A. Meal Replacement Products Patient was educated on the replacement products called optifast. This is a good way of taking fixed amount of calories. It has been shown in studies to be ineffective weight management tool. This however has to be coupled with lifestyle intervention as well as laboratory data and EKG monitoring. It is impossible to know how a person will tolerate complete meal replacement. The side effects of meal replacement and weight loss could include syncopal attacks, dizziness, gallstones, potential cholecystectomy, possible heart attack and even . The benefits of meal replacement would be potential weight loss but no guarantees can be made. Meal replacement products are not covered by insurance. Once the patient has bought these products we cannot return them B. Lifestyle management which includes several strategies as below 1. Eat a low carbohydrate good fat good protein diet. Eliminate refined carbohydrates from the diet. Continue blood sugar and sugared beverages. Eat local organic when possible. Cook your own meals. Read food labels. None about healthy snacks. Portion control and food with low glycemic index 2. Exercise regularly. Try to get at least 6000 steps a day. Use a predominant to track activity level. Consider using apps like Boombotix, Voyandopal, lose it, stick as needed for self-monitoring and weight management. Consider group exercises. Consider hiring a personal development educator. Regular exercise is ocampo to sustainable health and prevents as a buffer against weight regain 3. Sleep is most important for healing. Tried to sleep at least 8 hours a night. A good quality sleep needs a sleep ritual with ideal room temperature of around 68. It might help to take a shower and have no electronics in the room and sleep in a very dark room without artificial light. Start her sleep routine and get up early in the morning and go to bed on time 4. Make a social connection. Surround yourself with positive people with positive energy. Connect with friends and family. 5. Get into the habit of meditating and mindfulness while doing everything. 6. Go outside and connect with nature. C. Prescription medications Patient was educated on the use of prescription medications for medical weight loss. This is a growing list and includes phentermine, Topamax,Qsymia, contrave, belviq and saxenda. All prescription medications could have side effects including but not limited to kidney stones, seizure disorder cardiac arrhythmias heart attack pancreatitis etc. etc.. Patient was encouraged to read the prescription insert and have coaching with their pharmacist and make an informed decision about taking medication and know that these medications are being prescribed with good intentions and we do not know how a patient would react to her medication. Sudden medications are FDA approved for weight loss and there is also off label use depending on patient's inability to afford medications in an attempt to lose weight D. Behavioral counseling was done to establish a relationship between food and an mood. Patient was provided information about local counseling and psychiatry and Dr Patterson at [facility]. We would like to cover regular topics and build on low glycemic eating exercise mindful eating, using yoga and meditation along with deep breathing and connecting with friends and family. E. MASS PAT reviewed, Patient's current medications were reviewed and opinion was given on medication that can cause weight gain and can be substituted F. Patient was assessed for risk with obesity including and not limiting to atherosclerosis heart disease stroke kidney disease, restrictive lung disease, irritable bowel syndrome and overall mortality. Risk of developing prediabetes diabetes and metabolic syndrome was discussed G. Therapeutic plan: We have decided to make therapeutic plan which would include choosing wisely on calories restricting portion getting active, tracking weight, getting good quality sleep and working on time management H. Patient will follow up in (4) weeks for weight management Of note, some information is being carried forward from prior records for informational purposes only and is being cited so that efficiency, safety and quality of the patient's care is not compromised This note was prepared using voice recognition software and direct typing Please excuse inadvertent boat canvas maker installer or typing errors, or uncorrected word substitutions Although every attempt has been made by the provider to proofread this document, occasional misspellings and typographical errors may still be present Due to the previous pandemic, and the use of personal protective equipment (PPE) This may decrease voice recognition accuracy Inadvertent boat canvas maker installer errors may occur 11/17/2023 Dietary counseling and surveillance (ICD-10 - Z71.3) #Weight Management 11/17/2023 [facility] Continue maintenance dosing, 5 mg every other week Discussed importance of protein consumption for muscle maintenance as well as probiotics, B12 complex biotin , iron and other nutrients, To help avoid telogen effluvium while on weight loss medications such as GLP-1 Total time spent today was 30 minutes [...] mentioned above and not solely appetite suppression. We have discussed the mechanism of GLP-1's/GIP I think this would be fantastic option for her given her metabolic workup and body composition We have discussed the risks and benefits and side effects including/and not limited to Sarcopenia, intestinal obstruction, constipation, nausea, lethargy, headache There is no history of medullary thyroid cancer or multiple endocrine neoplasia There is also no history of cardiovascular disease, hypertension, palpitations, or arrhythmias In the setting of potential stimulant/amphetam ine use such as phentermine Patient was reassured and welcomed to the practice. We discussed that we stress a hollistic medical approach with emphasis on lifestyle modification. Patient was informed that a healthy lifestyle with exercise and good eating habits can help reduce his risk of medical complications. He is explained that obesity increases his risk of diabetes, cardiovascular disease, or organ damage. We spent a lot of time discussing the relationship between food, exercise, sleep, mental health and obesity. Patient was counseled on the importance EATING local, organic food when possible. Patient was educated on clean 15 and dirty dozen. I provided information about reading books called The Food Rules by Eugene Oliver and Eat Fat Get Lean by Dr Tate Che. Self education is important in the journey for weight management. Patient was offered diagnostic testing. We want to measure visceral adiposity, advanced body composition, adverse lipids, fatty acid balance, risk for heart disease and atherosclerosis, markers of inflammation and genetic susceptibility. Patient was counseled on weight management and was advised to lose weight using A. Meal Replacement Products Patient was educated on the replacement products called optifast. This is a good way of taking fixed amount of calories. It has been shown in studies to be ineffective weight management tool. This however has to be coupled with lifestyle intervention as well as laboratory data and EKG monitoring. It is impossible to know how a person will tolerate complete meal replacement. The side effects of meal replacement and weight loss could include syncopal attacks, dizziness, gallstones, potential cholecystectomy, possible heart attack and even . The benefits of meal replacement would be potential weight loss but no guarantees can be made. Meal replacement products are not covered by insurance. Once the patient has bought these products we cannot return them B. Lifestyle management which includes several strategies as below 1. Eat a low carbohydrate good fat good protein diet. Eliminate refined carbohydrates from the diet. Continue blood sugar and sugared beverages. Eat local organic when possible. Cook your own meals. Read food labels. None about healthy snacks. Portion control and food with low glycemic index 2. Exercise regularly. Try to get at least 6000 steps a day. Use a predominant to track activity level. Consider using apps like Boombotix, Voyandopal, lose it, stick as needed for self-monitoring and weight management. Consider group exercises. Consider hiring a personal development educator. Regular exercise is ocampo to sustainable health and prevents as a buffer against weight regain 3. Sleep is most important for healing. Tried to sleep at least 8 hours a night. A good quality sleep needs a sleep ritual with ideal room temperature of around 68. It might help to take a shower and have no electronics in the room and sleep in a very dark room without artificial light. Start her sleep routine and get up early in the morning and go to bed on time 4. Make a social connection. Surround yourself with positive people with positive energy. Connect with friends and family. 5. Get into the habit of meditating and mindfulness while doing everything. 6. Go outside and connect with nature. C. Prescription medications Patient was educated on the use of prescription medications for medical weight loss. This is a growing list and includes phentermine, Topamax,Qsymia, contrave, belviq and saxenda. All prescription medications could have side effects including but not limited to kidney stones, seizure disorder cardiac arrhythmias heart attack pancreatitis etc. etc.. Patient was encouraged to read the prescription insert and have coaching with their pharmacist and make an informed decision about taking medication and know that these medications are being prescribed with good intentions and we do not know how a patient would react to her medication. Sudden medications are FDA approved for weight loss and there is also off label use depending on patient's inability to afford medications in an attempt to lose weight D. Behavioral counseling was done to establish a relationship between food and an mood. Patient was provided information about local counseling and psychiatry and Dr Patterson at [facility]. We would like to cover regular topics and build on low glycemic eating exercise mindful eating, using yoga and meditation along with deep breathing and connecting with friends and family. E. MASS PAT reviewed, Patient's current medications were reviewed and opinion was given on medication that can cause weight gain and can be substituted F. Patient was assessed for risk with obesity including and not limiting to atherosclerosis heart disease stroke kidney disease, restrictive lung disease, irritable bowel syndrome and overall mortality. Risk of developing prediabetes diabetes and metabolic syndrome was discussed G. Therapeutic plan: We have decided to make therapeutic plan which would include choosing wisely on calories restricting portion getting active, tracking weight, getting good quality sleep and working on time management H. Patient will follow up in (4) weeks for weight management Of note, some information is being carried forward from prior records for informational purposes only and is being cited so that efficiency, safety and quality of the patient's care is not compromised This note was prepared using voice recognition software and direct typing Please excuse inadvertent boat canvas maker installer or typing errors, or uncorrected word substitutions Although every attempt has been made by the provider to proofread this document, occasional misspellings and typographical errors may still be present Due to the previous pandemic, and the use of personal protective equipment (PPE) This may decrease voice recognition accuracy Inadvertent boat canvas maker installer errors may occur 01/19/2024 Dietary counseling and surveillance (ICD-10 - Z71.3) #Weight Management 01/19/2024 ciera Will send 5 mg dose to [facility] Discussed importance of protein consumption for muscle maintenance as well as probiotics, B12 complex biotin , iron and other nutrients, To help avoid telogen effluvium while on weight loss medications such as GLP-1 Total time spent today was 30 minutes [...] mentioned above and not solely appetite suppression. We have discussed the mechanism of GLP-1's/GIP I think this would be fantastic option for her given her metabolic workup and body composition We have discussed the risks and benefits and side effects including/and not limited to Sarcopenia, intestinal obstruction, constipation, nausea, lethargy, headache There is no history of medullary thyroid cancer or multiple endocrine neoplasia There is also no history of cardiovascular disease, hypertension, palpitations, or arrhythmias In the setting of potential stimulant/amphetam ine use such as phentermine Patient was reassured and welcomed to the practice. We discussed that we stress a hollistic medical approach with emphasis on lifestyle modification. Patient was informed that a healthy lifestyle with exercise and good eating habits can help reduce his risk of medical complications. He is explained that obesity increases his risk of diabetes, cardiovascular disease, or organ damage. We spent a lot of time discussing the relationship between food, exercise, sleep, mental health and obesity. Patient was counseled on the importance EATING local, organic food when possible. Patient was educated on clean 15 and dirty dozen. I provided information about reading books called The Food Rules by Eugene Oliver and Eat Fat Get Lean by Dr Tate Che. Self education is important in the journey for weight management. Patient was offered diagnostic testing. We want to measure visceral adiposity, advanced body composition, adverse lipids, fatty acid balance, risk for heart disease and atherosclerosis, markers of inflammation and genetic susceptibility. Patient was counseled on weight management and was advised to lose weight using A. Meal Replacement Products Patient was educated on the replacement products called optifast. This is a good way of taking fixed amount of calories. It has been shown in studies to be ineffective weight management tool. This however has to be coupled with lifestyle intervention as well as laboratory data and EKG monitoring. It is impossible to know how a person will tolerate complete meal replacement. The side effects of meal replacement and weight loss could include syncopal attacks, dizziness, gallstones, potential cholecystectomy, possible heart attack and even . The benefits of meal replacement would be potential weight loss but no guarantees can be made. Meal replacement products are not covered by insurance. Once the patient has bought these products we cannot return them B. Lifestyle management which includes several strategies as below 1. Eat a low carbohydrate good fat good protein diet. Eliminate refined carbohydrates from the diet. Continue blood sugar and sugared beverages. Eat local organic when possible. Cook your own meals. Read food labels. None about healthy snacks. Portion control and food with low glycemic index 2. Exercise regularly. Try to get at least 6000 steps a day. Use a predominant to track activity level. Consider using apps like Boombotix, Voyandopal, lose it, stick as needed for self-monitoring and weight management. Consider group exercises. Consider hiring a personal development educator. Regular exercise is ocampo to sustainable health and prevents as a buffer against weight regain 3. Sleep is most important for healing. Tried to sleep at least 8 hours a night. A good quality sleep needs a sleep ritual with ideal room temperature of around 68. It might help to take a shower and have no electronics in the room and sleep in a very dark room without artificial light. Start her sleep routine and get up early in the morning and go to bed on time 4. Make a social connection. Surround yourself with positive people with positive energy. Connect with friends and family. 5. Get into the habit of meditating and mindfulness while doing everything. 6. Go outside and connect with nature. C. Prescription medications Patient was educated on the use of prescription medications for medical weight loss. This is a growing list and includes phentermine, Topamax,Qsymia, contrave, belviq and saxenda. All prescription medications could have side effects including but not limited to kidney stones, seizure disorder cardiac arrhythmias heart attack pancreatitis etc. etc.. Patient was encouraged to read the prescription insert and have coaching with their pharmacist and make an informed decision about taking medication and know that these medications are being prescribed with good intentions and we do not know how a patient would react to her medication. Sudden medications are FDA approved for weight loss and there is also off label use depending on patient's inability to afford medications in an attempt to lose weight D. Behavioral counseling was done to establish a relationship between food and an mood. Patient was provided information about local counseling and psychiatry and Dr Patterson at [facility]. We would like to cover regular topics and build on low glycemic eating exercise mindful eating, using yoga and meditation along with deep breathing and connecting with friends and family. E. MASS PAT reviewed, Patient's current medications were reviewed and opinion was given on medication that can cause weight gain and can be substituted F. Patient was assessed for risk with obesity including and not limiting to atherosclerosis heart disease stroke kidney disease, restrictive lung disease, irritable bowel syndrome and overall mortality. Risk of developing prediabetes diabetes and metabolic syndrome was discussed G. Therapeutic plan: We have decided to make therapeutic plan which would include choosing wisely on calories restricting portion getting active, tracking weight, getting good quality sleep and working on time management H. Patient will follow up in (4) weeks for weight management Of note, some information is being carried forward from prior records for informational purposes only and is being cited so that efficiency, safety and quality of the patient's care is not compromised This note was prepared using voice recognition software and direct typing Please excuse inadvertent boat canvas maker installer or typing errors, or uncorrected word substitutions Although every attempt has been made by the provider to proofread this document, occasional misspellings and typographical errors may still be present Due to the previous pandemic, and the use of personal protective equipment (PPE) This may decrease voice recognition accuracy Inadvertent boat canvas maker installer errors may occur 03/27/2024 Dietary counseling and [...] software and direct typing Please excuse inadvertent boat canvas maker installer or typing errors, or uncorrected word substitutions Although every attempt has been made by the provider to proofread this document, occasional misspellings and typographical errors may still be present Due to the previous pandemic, and the use of personal protective equipment (PPE) This may decrease voice recognition accuracy Inadvertent boat canvas maker installer errors may occur 08/03/2023 Overweight (BMI 25.0-29.9) (ICD-10 - E66.3) #Weight Management 08/03/2023 [facility] Continue maintenance dosing, 5 mg every other week Discussed importance of protein consumption for muscle maintenance as well as probiotics, B12 complex biotin , iron and other nutrients, To help avoid telogen effluvium while on weight loss medications such as GLP-1 Total time spent today was 30 minutes [...] mentioned above and not solely appetite suppression. We have discussed the mechanism of GLP-1's/GIP I think this would be fantastic option for her given her metabolic workup and body composition We have discussed the risks and benefits and side effects including/and not limited to Sarcopenia, intestinal obstruction, constipation, nausea, lethargy, headache There is no history of medullary thyroid cancer or multiple endocrine neoplasia There is also no history of cardiovascular disease, hypertension, palpitations, or arrhythmias In the setting of potential stimulant/amphetam ine use such as phentermine Patient was reassured and welcomed to the practice. We discussed that we stress a hollistic medical approach with emphasis on lifestyle modification. Patient was informed that a healthy lifestyle with exercise and good eating habits can help reduce his risk of medical complications. He is explained that obesity increases his risk of diabetes, cardiovascular disease, or organ damage. We spent a lot of time discussing the relationship between food, exercise, sleep, mental health and obesity. Patient was counseled on the importance EATING local, organic food when possible. Patient was educated on clean 15 and dirty dozen. I provided information about reading books called The Food Rules by Eugene Oliver and Eat Fat Get Lean by Dr Tate Che. Self education is important in the journey for weight management. Patient was offered diagnostic testing. We want to measure visceral adiposity, advanced body composition, adverse lipids, fatty acid balance, risk for heart disease and atherosclerosis, markers of inflammation and genetic susceptibility. Patient was counseled on weight management and was advised to lose weight using A. Meal Replacement Products Patient was educated on the replacement products called optifast. This is a good way of taking fixed amount of calories. It has been shown in studies to be ineffective weight management tool. This however has to be coupled with lifestyle intervention as well as laboratory data and EKG monitoring. It is impossible to know how a person will tolerate complete meal replacement. The side effects of meal replacement and weight loss could include syncopal attacks, dizziness, gallstones, potential cholecystectomy, possible heart attack and even . The benefits of meal replacement would be potential weight loss but no guarantees can be made. Meal replacement products are not covered by insurance. Once the patient has bought these products we cannot return them B. Lifestyle management which includes several strategies as below 1. Eat a low carbohydrate good fat good protein diet. Eliminate refined carbohydrates from the diet. Continue blood sugar and sugared beverages. Eat local organic when possible. Cook your own meals. Read food labels. None about healthy snacks. Portion control and food with low glycemic index 2. Exercise regularly. Try to get at least 6000 steps a day. Use a predominant to track activity level. Consider using apps like Boombotix, Voyandopal, lose it, stick as needed for self-monitoring and weight management. Consider group exercises. Consider hiring a personal development educator. Regular exercise is ocampo to sustainable health and prevents as a buffer against weight regain 3. Sleep is most important for healing. Tried to sleep at least 8 hours a night. A good quality sleep needs a sleep ritual with ideal room temperature of around 68. It might help to take a shower and have no electronics in the room and sleep in a very dark room without artificial light. Start her sleep routine and get up early in the morning and go to bed on time 4. Make a social connection. Surround yourself with positive people with positive energy. Connect with friends and family. 5. Get into the habit of meditating and mindfulness while doing everything. 6. Go outside and connect with nature. C. Prescription medications Patient was educated on the use of prescription medications for medical weight loss. This is a growing list and includes phentermine, Topamax,Qsymia, contrave, belviq and saxenda. All prescription medications could have side effects including but not limited to kidney stones, seizure disorder cardiac arrhythmias heart attack pancreatitis etc. etc.. Patient was encouraged to read the prescription insert and have coaching with their pharmacist and make an informed decision about taking medication and know that these medications are being prescribed with good intentions and we do not know how a patient would react to her medication. Sudden medications are FDA approved for weight loss and there is also off label use depending on patient's inability to afford medications in an attempt to lose weight D. Behavioral counseling was done to establish a relationship between food and an mood. Patient was provided information about local counseling and psychiatry and Dr Patterson at [facility]. We would like to cover regular topics and build on low glycemic eating exercise mindful eating, using yoga and meditation along with deep breathing and connecting with friends and family. E. MASS PAT reviewed, Patient's current medications were reviewed and opinion was given on medication that can cause weight gain and can be substituted F. Patient was assessed for risk with obesity including and not limiting to atherosclerosis heart disease stroke kidney disease, restrictive lung disease, irritable bowel syndrome and overall mortality. Risk of developing prediabetes diabetes and metabolic syndrome was discussed G. Therapeutic plan: We have decided to make therapeutic plan which would include choosing wisely on calories restricting portion getting active, tracking weight, getting good quality sleep and working on time management H. Patient will follow up in (4) weeks for weight management Of note, some information is being carried forward from prior records for informational purposes only and is being cited so that efficiency, safety and quality of the patient's care is not compromised This note was prepared using voice recognition software and direct typing Please excuse inadvertent boat canvas maker installer or typing errors, or uncorrected word substitutions Although every attempt has been made by the provider to proofread this document, occasional misspellings and typographical errors may still be present Due to the previous pandemic, and the use of personal protective equipment (PPE) This may decrease voice recognition accuracy Inadvertent boat canvas maker installer errors may occur 03/27/2024 Migraine without aura and without status migrainosus, not intractable (ICD-10 - G43.009) #Weight Management 03/27/2024 [facility] cont 5mng dosing now utilizing [employer] [facility] pay Total time spent today [...] software and direct typing Please excuse inadvertent boat canvas maker installer or typing errors, or uncorrected word substitutions Although every attempt has been made by the provider to proofread this document, occasional misspellings and typographical errors may still be present Due to the previous pandemic, and the use of personal protective equipment (PPE) This may decrease voice recognition accuracy Inadvertent boat canvas maker installer errors may occur 01/19/2024 Migraine without aura and without status migrainosus, not intractable (ICD-10 - G43.009) #Weight Management 01/19/2024 [facility] Will send 5 mg dose to [employer] direct [facility]ra Discussed importance of protein consumption for muscle maintenance as well as probiotics, B12 complex biotin , iron and other nutrients, To help avoid telogen effluvium while on weight loss medications such as GLP-1 Total time spent today was 30 minutes [...] mentioned above and not solely appetite suppression. We have discussed the mechanism of GLP-1's/GIP I think this would be fantastic option for her given her metabolic workup and body composition We have discussed the risks and benefits and side effects including/and not limited to Sarcopenia, intestinal obstruction, constipation, nausea, lethargy, headache There is no history of medullary thyroid cancer or multiple endocrine neoplasia There is also no history of cardiovascular disease, hypertension, palpitations, or arrhythmias In the setting of potential stimulant/amphetam ine use such as phentermine Patient was reassured and welcomed to the practice. We discussed that we stress a hollistic medical approach with emphasis on lifestyle modification. Patient was informed that a healthy lifestyle with exercise and good eating habits can help reduce his risk of medical complications. He is explained that obesity increases his risk of diabetes, cardiovascular disease, or organ damage. We spent a lot of time discussing the relationship between food, exercise, sleep, mental health and obesity. Patient was counseled on the importance EATING local, organic food when possible. Patient was educated on clean 15 and dirty dozen. I provided information about reading books called The Food Rules by Eugene Oliver and Eat Fat Get Lean by Dr Tate Che. Self education is important in the journey for weight management. Patient was offered diagnostic testing. We want to measure visceral adiposity, advanced body composition, adverse lipids, fatty acid balance, risk for heart disease and atherosclerosis, markers of inflammation and genetic susceptibility. Patient was counseled on weight management and was advised to lose weight using A. Meal Replacement Products Patient was educated on the replacement products called optifast. This is a good way of taking fixed amount of calories. It has been shown in studies to be ineffective weight management tool. This however has to be coupled with lifestyle intervention as well as laboratory data and EKG monitoring. It is impossible to know how a person will tolerate complete meal replacement. The side effects of meal replacement and weight loss could include syncopal attacks, dizziness, gallstones, potential cholecystectomy, possible heart attack and even . The benefits of meal replacement would be potential weight loss but no guarantees can be made. Meal replacement products are not covered by insurance. Once the patient has bought these products we cannot return them B. Lifestyle management which includes several strategies as below 1. Eat a low carbohydrate good fat good protein diet. Eliminate refined carbohydrates from the diet. Continue blood sugar and sugared beverages. Eat local organic when possible. Cook your own meals. Read food labels. None about healthy snacks. Portion control and food with low glycemic index 2. Exercise regularly. Try to get at least 6000 steps a day. Use a predominant to track activity level. Consider using apps like [employer], [employer], lose it, stick as needed for self-monitoring and weight management. Consider group exercises. Consider hiring a personal development educator. Regular exercise is [place] to sustainable health and prevents as a buffer against weight regain 3. Sleep is most important for healing. Tried to sleep at least 8 hours a night. A good quality sleep needs a sleep ritual with ideal room temperature of around 68. It might help to take a shower and have no electronics in the room and sleep in a very dark room without artificial light. Start her sleep routine and get up early in the morning and go to bed on time 4. Make a social connection. Surround yourself with positive people with positive energy. Connect with friends and family. 5. Get into the habit of meditating and mindfulness while doing everything. 6. Go outside and connect with nature. C. Prescription medications Patient was educated on the use of prescription medications for medical weight loss. This is a growing list and includes phentermine, Topamax,Qsymia, contrave, belviq and saxenda. All prescription medications could have side effects including but not limited to kidney stones, seizure disorder cardiac arrhythmias heart attack pancreatitis etc. etc.. Patient was encouraged to read the prescription insert and have coaching with their pharmacist and make an informed decision about taking medication and know that these medications are being prescribed with good intentions and we do not know how a patient would react to her medication. Sudden medications are FDA approved for weight loss and there is also off label use depending on patient's inability to afford medications in an attempt to lose weight D. Behavioral counseling was done to establish a relationship between food and an mood. Patient was provided information about local counseling and psychiatry and Dr Patterson at [facility]. We would like to cover regular topics and build on low glycemic eating exercise mindful eating, using yoga and meditation along with deep breathing and connecting with friends and family. E. MASS PAT reviewed, Patient's current medications were reviewed and opinion was given on medication that can cause weight gain and can be substituted F. Patient was assessed for risk with obesity including and not limiting to atherosclerosis heart disease stroke kidney disease, restrictive lung disease, irritable bowel syndrome and overall mortality. Risk of developing prediabetes diabetes and metabolic syndrome was discussed G. Therapeutic plan: We have decided to make therapeutic plan which would include choosing wisely on calories restricting portion getting active, tracking weight, getting good quality sleep and working on time management H. Patient will follow up in (4) weeks for weight management Of note, some information is being carried forward from prior records for informational purposes only and is being cited so that efficiency, safety and quality of the patient's care is not compromised This note was prepared using voice recognition software and direct typing Please excuse inadvertent boat canvas maker installer or typing errors, or uncorrected word substitutions Although every attempt has been made by the provider to proofread this document, occasional misspellings and typographical errors may still be present Due to the previous pandemic, and the use of personal protective equipment (PPE) This may decrease voice recognition accuracy Inadvertent boat canvas maker installer errors may occur 11/17/2023 Migraine without aura and without status migrainosus, not intractable (ICD-10 - G43.009) #Weight Management 11/17/2023 [facility] Continue maintenance dosing, 5 mg every other week Discussed importance of protein consumption for muscle maintenance as well as probiotics, B12 complex biotin , iron and other nutrients, To help avoid telogen effluvium while on weight loss medications such as GLP-1 Total time spent today was 30 minutes [...] mentioned above and not solely appetite suppression. We have discussed the mechanism of GLP-1's/GIP I think this would be fantastic option for her given her metabolic workup and body composition We have discussed the risks and benefits and side effects including/and not limited to Sarcopenia, intestinal obstruction, constipation, nausea, lethargy, headache There is no history of medullary thyroid cancer or multiple endocrine neoplasia There is also no history of cardiovascular disease, hypertension, palpitations, or arrhythmias In the setting of potential stimulant/amphetam ine use such as phentermine Patient was reassured and welcomed to the practice. We discussed that we stress a hollistic medical approach with emphasis on lifestyle modification. Patient was informed that a healthy lifestyle with exercise and good eating habits can help reduce his risk of medical complications. He is explained that obesity increases his risk of diabetes, cardiovascular disease, or organ damage. We spent a lot of time discussing the relationship between food, exercise, sleep, mental health and obesity. Patient was counseled on the importance EATING local, organic food when possible. Patient was educated on clean 15 and dirty dozen. I provided information about reading books called The Food Rules by Eugene Oliver and Eat Fat Get Lean by Dr Tate Che. Self education is important in the journey for weight management. Patient was offered diagnostic testing. We want to measure visceral adiposity, advanced body composition, adverse lipids, fatty acid balance, risk for heart disease and atherosclerosis, markers of inflammation and genetic susceptibility. Patient was counseled on weight management and was advised to lose weight using A. Meal Replacement Products Patient was educated on the replacement products called optifast. This is a good way of taking fixed amount of calories. It has been shown in studies to be ineffective weight management tool. This however has to be coupled with lifestyle intervention as well as laboratory data and EKG monitoring. It is impossible to know how a person will tolerate complete meal replacement. The side effects of meal replacement and weight loss could include syncopal attacks, dizziness, gallstones, potential cholecystectomy, possible heart attack and even . The benefits of meal replacement would be potential weight loss but no guarantees can be made. Meal replacement products are not covered by insurance. Once the patient has bought these products we cannot return them B. Lifestyle management which includes several strategies as below 1. Eat a low carbohydrate good fat good protein diet. Eliminate refined carbohydrates from the diet. Continue blood sugar and sugared beverages. Eat local organic when possible. Cook your own meals. Read food labels. None about healthy snacks. Portion control and food with low glycemic index 2. Exercise regularly. Try to get at least 6000 steps a day. Use a predominant to track activity level. Consider using apps like [employer], myfitnesspal, lose it, stick as needed for self-monitoring and weight management. Consider group exercises. Consider hiring a personal development educator. Regular exercise is [place] to sustainable health and prevents as a buffer against weight regain 3. Sleep is most important for healing. Tried to sleep at least 8 hours a night. A good quality sleep needs a sleep ritual with ideal room temperature of around 68. It might help to take a shower and have no electronics in the room and sleep in a very dark room without artificial light. Start her sleep routine and get up early in the morning and go to bed on time 4. Make a social connection. Surround yourself with positive people with positive energy. Connect with friends and family. 5. Get into the habit of meditating and mindfulness while doing everything. 6. Go outside and connect with nature. C. Prescription medications Patient was educated on the use of prescription medications for medical weight loss. This is a growing list and includes phentermine, Topamax,Qsymia, contrave, belviq and saxenda. All prescription medications could have side effects including but not limited to kidney stones, seizure disorder cardiac arrhythmias heart attack pancreatitis etc. etc.. Patient was encouraged to read the prescription insert and have coaching with their pharmacist and make an informed decision about taking medication and know that these medications are being prescribed with good intentions and we do not know how a patient would react to her medication. Sudden medications are FDA approved for weight loss and there is also off label use depending on patient's inability to afford medications in an attempt to lose weight D. Behavioral counseling was done to establish a relationship between food and an mood. Patient was provided information about local counseling and psychiatry and Dr Patterson at [facility]. We would like to cover regular topics and build on low glycemic eating exercise mindful eating, using yoga and meditation along with deep breathing and connecting with friends and family. E. MASS PAT reviewed, Patient's current medications were reviewed and opinion was given on medication that can cause weight gain and can be substituted F. Patient was assessed for risk with obesity including and not limiting to atherosclerosis heart disease stroke kidney disease, restrictive lung disease, irritable bowel syndrome and overall mortality. Risk of developing prediabetes diabetes and metabolic syndrome was discussed G. Therapeutic plan: We have decided to make therapeutic plan which would include choosing wisely on calories restricting portion getting active, tracking weight, getting good quality sleep and working on time management H. Patient will follow up in (4) weeks for weight management Of note, some information is being carried forward from prior records for informational purposes only and is being cited so that efficiency, safety and quality of the patient's care is not compromised This note was prepared using voice recognition software and direct typing Please excuse inadvertent boat canvas maker installer or typing errors, or uncorrected word substitutions Although every attempt has been made by the provider to proofread this document, occasional misspellings and typographical errors may still be present Due to the previous pandemic, and the use of personal protective equipment (PPE) This may decrease voice recognition accuracy Inadvertent boat canvas maker installer errors may occur 11/17/2023 Migraine without aura and without status migrainosus, not intractable (ICD-10 - G43.009) #Weight Management 11/17/2023 Review labs [facility] Continue maintenance dosing, 5 mg every other week Discussed importance of protein consumption for muscle maintenance as well as probiotics, B12 complex biotin , iron and other nutrients, To help avoid telogen effluvium while on weight loss medications such as GLP-1 Total time spent today was 30 minutes [...] mentioned above and not solely appetite suppression. We have discussed the mechanism of GLP-1's/GIP I think this would be fantastic option for her given her metabolic workup and body composition We have discussed the risks and benefits and side effects including/and not limited to Sarcopenia, intestinal obstruction, constipation, nausea, lethargy, headache There is no history of medullary thyroid cancer or multiple endocrine neoplasia There is also no history of cardiovascular disease, hypertension, palpitations, or arrhythmias In the setting of potential stimulant/amphetam ine use such as phentermine Patient was reassured and welcomed to the practice. We discussed that we stress a hollistic medical approach with emphasis on lifestyle modification. Patient was informed that a healthy lifestyle with exercise and good eating habits can help reduce his risk of medical complications. He is explained that obesity increases his risk of diabetes, cardiovascular disease, or organ damage. We spent a lot of time discussing the relationship between food, exercise, sleep, mental health and obesity. Patient was counseled on the importance EATING local, organic food when possible. Patient was educated on clean 15 and dirty dozen. I provided information about reading books called The Food Rules by Eugene Oliver and Eat Fat Get Lean by Dr Tate Che. Self education is important in the journey for weight management. Patient was offered diagnostic testing. We want to measure visceral adiposity, advanced body composition, adverse lipids, fatty acid balance, risk for heart disease and atherosclerosis, markers of inflammation and genetic susceptibility. Patient was counseled on weight management and was advised to lose weight using A. Meal Replacement Products Patient was educated on the replacement products called optifast. This is a good way of taking fixed amount of calories. It has been shown in studies to be ineffective weight management tool. This however has to be coupled with lifestyle intervention as well as laboratory data and EKG monitoring. It is impossible to know how a person will tolerate complete meal replacement. The side effects of meal replacement and weight loss could include syncopal attacks, dizziness, gallstones, potential cholecystectomy, possible heart attack and even . The benefits of meal replacement would be potential weight loss but no guarantees can be made. Meal replacement products are not covered by insurance. Once the patient has bought these products we cannot return them B. Lifestyle management which includes several strategies as below 1. Eat a low carbohydrate good fat good protein diet. Eliminate refined carbohydrates from the diet. Continue blood sugar and sugared beverages. Eat local organic when possible. Cook your own meals. Read food labels. None about healthy snacks. Portion control and food with low glycemic index 2. Exercise regularly. Try to get at least 6000 steps a day. Use a predominant to track activity level. Consider using apps like [employer]ix, myfitJumpOffCampuspal, lose it, stick as needed for self-monitoring and weight management. Consider group exercises. Consider hiring a personal development educator. Regular exercise is [place] to sustainable health and prevents as a buffer against weight regain 3. Sleep is most important for healing. Tried to sleep at least 8 hours a night. A good quality sleep needs a sleep ritual with ideal room temperature of around 68. It might help to take a shower and have no electronics in the room and sleep in a very dark room without artificial light. Start her sleep routine and get up early in the morning and go to bed on time 4. Make a social connection. Surround yourself with positive people with positive energy. Connect with friends and family. 5. Get into the habit of meditating and mindfulness while doing everything. 6. Go outside and connect with nature. C. Prescription medications Patient was educated on the use of prescription medications for medical weight loss. This is a growing list and includes phentermine, Topamax,Qsymia, contrave, belviq and saxenda. All prescription medications could have side effects including but not limited to kidney stones, seizure disorder cardiac arrhythmias heart attack pancreatitis etc. etc.. Patient was encouraged to read the prescription insert and have coaching with their pharmacist and make an informed decision about taking medication and know that these medications are being prescribed with good intentions and we do not know how a patient would react to her medication. Sudden medications are FDA approved for weight loss and there is also off label use depending on patient's inability to afford medications in an attempt to lose weight D. Behavioral counseling was done to establish a relationship between food and an mood. Patient was provided information about local counseling and psychiatry and Dr Patterson at [facility]. We would like to cover regular topics and build on low glycemic eating exercise mindful eating, using yoga and meditation along with deep breathing and connecting with friends and family. E. MASS PAT reviewed, Patient's current medications were reviewed and opinion was given on medication that can cause weight gain and can be substituted F. Patient was assessed for risk with obesity including and not limiting to atherosclerosis heart disease stroke kidney disease, restrictive lung disease, irritable bowel syndrome and overall mortality. Risk of developing prediabetes diabetes and metabolic syndrome was discussed G. Therapeutic plan: We have decided to make therapeutic plan which would include choosing wisely on calories restricting portion getting active, tracking weight, getting good quality sleep and working on time management H. Patient will follow up in (4) weeks for weight management Of note, some information is being carried forward from prior records for informational purposes only and is being cited so that efficiency, safety and quality of the patient's care is not compromised This note was prepared using voice recognition software and direct typing Please excuse inadvertent boat canvas maker installer or typing errors, or uncorrected word substitutions Although every attempt has been made by the provider to proofread this document, occasional misspellings and typographical errors may still be present Due to the previous pandemic, and the use of personal protective equipment (PPE) This may decrease voice recognition accuracy Inadvertent boat canvas maker installer errors may occur 08/03/2023 BMI 25.0-25.9,adult (ICD-10 - Z68.25) #Weight Management 08/03/2023 thriving Continue maintenance dosing, 5 mg every other week Discussed importance of protein consumption for muscle maintenance as well as probiotics, B12 complex biotin , iron and other nutrients, To help avoid telogen effluvium while on weight loss medications such as GLP-1 Total time spent today was 30 minutes [...] mentioned above and not solely appetite suppression. We have discussed the mechanism of GLP-1's/GIP I think this would be fantastic option for her given her metabolic workup and body composition We have discussed the risks and benefits and side effects including/and not limited to Sarcopenia, intestinal obstruction, constipation, nausea, lethargy, headache There is no history of medullary thyroid cancer or multiple endocrine neoplasia There is also no history of cardiovascular disease, hypertension, palpitations, or arrhythmias In the setting of potential stimulant/amphetam ine use such as phentermine Patient was reassured and welcomed to the practice. We discussed that we stress a hollistic medical approach with emphasis on lifestyle modification. Patient was informed that a healthy lifestyle with exercise and good eating habits can help reduce his risk of medical complications. He is explained that obesity increases his risk of diabetes, cardiovascular disease, or organ damage. We spent a lot of time discussing the relationship between food, exercise, sleep, mental health and obesity. Patient was counseled on the importance EATING local, organic food when possible. Patient was educated on clean 15 and dirty dozen. I provided information about reading books called The Food Rules by Eugene Oliver and Eat Fat Get Lean by Dr Tate Che. Self education is important in the journey for weight management. Patient was offered diagnostic testing. We want to measure visceral adiposity, advanced body composition, adverse lipids, fatty acid balance, risk for heart disease and atherosclerosis, markers of inflammation and genetic susceptibility. Patient was counseled on weight management and was advised to lose weight using A. Meal Replacement Products Patient was educated on the replacement products called optifast. This is a good way of taking fixed amount of calories. It has been shown in studies to be ineffective weight management tool. This however has to be coupled with lifestyle intervention as well as laboratory data and EKG monitoring. It is impossible to know how a person will tolerate complete meal replacement. The side effects of meal replacement and weight loss could include syncopal attacks, dizziness, gallstones, potential cholecystectomy, possible heart attack and even . The benefits of meal replacement would be potential weight loss but no guarantees can be made. Meal replacement products are not covered by insurance. Once the patient has bought these products we cannot return them B. Lifestyle management which includes several strategies as below 1. Eat a low carbohydrate good fat good protein diet. Eliminate refined carbohydrates from the diet. Continue blood sugar and sugared beverages. Eat local organic when possible. Cook your own meals. Read food labels. None about healthy snacks. Portion control and food with low glycemic index 2. Exercise regularly. Try to get at least 6000 steps a day. Use a predominant to track activity level. Consider using apps like Boomb[employer]ix, myfitJumpOffCampuspal, lose it, stick as needed for self-monitoring and weight management. Consider group exercises. Consider hiring a personal development educator. Regular exercise is ocampo to sustainable health and prevents as a buffer against weight regain 3. Sleep is most important for healing. Tried to sleep at least 8 hours a night. A good quality sleep needs a sleep ritual with ideal room temperature of around 68. It might help to take a shower and have no electronics in the room and sleep in a very dark room without artificial light. Start her sleep routine and get up early in the morning and go to bed on time 4. Make a social connection. Surround yourself with positive people with positive energy. Connect with friends and family. 5. Get into the habit of meditating and mindfulness while doing everything. 6. Go outside and connect with nature. C. Prescription medications Patient was educated on the use of prescription medications for medical weight loss. This is a growing list and includes phentermine, Topamax,Qsymia, contrave, belviq and saxenda. All prescription medications could have side effects including but not limited to kidney stones, seizure disorder cardiac arrhythmias heart attack pancreatitis etc. etc.. Patient was encouraged to read the prescription insert and have coaching with their pharmacist and make an informed decision about taking medication and know that these medications are being prescribed with good intentions and we do not know how a patient would react to her medication. Sudden medications are FDA approved for weight loss and there is also off label use depending on patient's inability to afford medications in an attempt to lose weight D. Behavioral counseling was done to establish a relationship between food and an mood. Patient was provided information about local counseling and psychiatry and Dr Patterson at [facility]. We would like to cover regular topics and build on low glycemic eating exercise mindful eating, using yoga and meditation along with deep breathing and connecting with friends and family. E. MASS PAT reviewed, Patient's current medications were reviewed and opinion was given on medication that can cause weight gain and can be substituted F. Patient was assessed for risk with obesity including and not limiting to atherosclerosis heart disease stroke kidney disease, restrictive lung disease, irritable bowel syndrome and overall mortality. Risk of developing prediabetes diabetes and metabolic syndrome was discussed G. Therapeutic plan: We have decided to make therapeutic plan which would include choosing wisely on calories restricting portion getting active, tracking weight, getting good quality sleep and working on time management H. Patient will follow up in (4) weeks for weight management Of note, some information is being carried forward from prior records for informational purposes only and is being cited so that efficiency, safety and quality of the patient's care is not compromised This note was prepared using voice recognition software and direct typing Please excuse inadvertent boat canvas maker installer or typing errors, or uncorrected word substitutions Although every attempt has been made by the provider to proofread this document, occasional misspellings and typographical errors may still be present Due to the previous pandemic, and the use of personal protective equipment (PPE) This may decrease voice recognition accuracy Inadvertent boat canvas maker installer errors may occur PLAN OF TREATMENT Next Appt Details Provider Name:CISCO OWENS, 05/29/2024 11:15:00 AM, [address] [facility], [facility], [address], [place], [address], Insurance Providers Payer Name Payer Address Payer Phone Subscriber Number Group Number Insured Name Patient Relationship to Insured Coverage Start Date Coverage End Date Blue [place] [address] [address] [place] [address] [id number] Shira Allen Self - patient is the insured MEDICAL (GENERAL) HISTORY Medical History History ICD Code hyperlipidemia migraine headaches obesity asthma liver adenoma add lumbar radiculopathy lumber facet joint syndrome disc herination high cholesterol anxiety hearing loss Surgical History Surgery Date(Month/Year) RT shoulder slap procedure 2011 Lap Celina 1996 Total Hysterectomy 2017 Tympanostomy x13 as a child Adnoidectomy as a child
--- OUTSIDE RECORDS SUMMARY | 2024-04-10 01:37 | XMS_ITS ---
Author Organization [facility] Address [address] [place] [address] Care Team Providers Care Load Blocker Name Role Phone GRACIELA CISCO Unavailable [phone] REASON FOR VISIT prescription MEDICATIONS Medication SIG (Take, Route, Frequency, Duration) Notes Start Date End Date Status MiraLax 17 GM/SCOOP 1 scoop mixed with 8 ounces of fluid Orally Once a day for 30 days allow for generic bottle 01/22/2024 Active Encounters Encounter Location Date Provider Diagnosis [address] [facility] [address] [place] [address] 01/22/2024 CISCO OWENS PLAN OF TREATMENT Medication Medication Name Sig Start Date Stop Date Notes MiraLax 17 GM/SCOOP 1 scoop mixed with 8 ounces of fluid Orally Once a day for 30 days 01/22/2024 allow for generic bottle Next Appt Details Provider Name:CISCO OWNES, 05/29/2024 11:15:00 AM, [address] [facility], [address], [place], [address], Progress Notes * Madonna HANSENOB: 4 (48 yo F)Acc No.[id number]:01/22/2024 Patient:??Shira HANSEN :1975?Age:48 Y?Sex:Fe male [address] [address] * Refills?? Start MiraLax Powder, 17 GM/SCOOP, Orally, 1 Unspecified, 1 scoop mixed with 8 ounces of fluid, Once a day, 30 days, Refills=5 * true * Date:??
== END 2024-04-04 13:30 | disposition home or self-care (01) ==
PROVIDERS: PCP Internal Medicine; Visit Provider Internal Medicine Gastroenterology
PROC: 0DJD8ZZ Inspection of Lower Intestinal Tract, Via Natural or Artificial Opening Endoscopic (ICD-10-PCS; CPT 45378; principal; 2024-04-04 13:10)
DX: Z12.11 Encounter for screening for malignant neoplasm of colon (principal); D12.0 Benign neoplasm of cecum; K57.30 Diverticulosis of large intestine without perforation or abscess without bleeding; K64.0 First degree hemorrhoids; E78.5 Hyperlipidemia, unspecified; J45.909 Unspecified asthma, uncomplicated; K21.9 Gastro-esophageal reflux disease without esophagitis; Z79.899 Other long term (current) drug therapy
CPT/HCPCS: 45385; 45381; 88305; J2003; J2704

== ENCOUNTER → 2024-04-04 10:31 | Outpatient (BNV) | payer OTHER, SELFPAY | PROVIDERS: PCP Internal Medicine; Visit Provider Internal Medicine Gastroenterology | DX: Z12.11 Encounter for screening for malignant neoplasm of colon (principal); K63.5 Polyp of colon; K57.30 Diverticulosis of large intestine without perforation or abscess without bleeding; K64.0 First degree hemorrhoids | CPT/HCPCS: 45381; 45385 ==

== ENCOUNTER 2024-05-10 13:23 | Outpatient (REF) | payer OTHER, SELFPAY ==
--- OUTSIDE RECORDS SUMMARY | 2024-05-10 13:26 | XMS_ITS ---
Author Organization [facility] Address [address] [place] [address] Care Team Providers Care Candy Maker Name Role Phone CISCO OWENS Unavailable [phone] ALLERGIES Allergen (clinical drug ingredient) Drug/Non Drug [...] Overweight (BMI 25.0-29.9) (E66.3) Active confirmed Overweight ([id number]) VITAL SIGNS Heart Rate 76 /min 03/27/2024 Blood pressure systolic 124 mm Hg 03/27/20 24 Blood pressure diastolic 76 mm Hg 024 Weight 160.8 lbs 03/27/2024 BMI 25.18 kg/m2 03/27/2024 Height 67 in 03/27/2024 Oximetry 98 % 03/27/2024 Encounters Encounter Location Date Provider Diagnosis [facility] [address] [facility] [address] [place] [address] 03/27/2024 CISCO MCCALLTaz BMI 25.0-25.9,adult Z68.25 ; [...] software and direct typing Please excuse inadvertent diesel locomotive crane operator or typing errors, or uncorrected word substitutions Although every attempt has been made by the provider to proofread this document, occasional misspellings and typographical errors may still be present Due to the previous pandemic, and the use of personal protective equipment (PPE) This may decrease voice recognition accuracy Inadvertent diesel locomotive crane operator errors may occur 03/27/2024 Overweight (BMI [...] software and direct typing Please excuse inadvertent diesel locomotive crane operator or typing errors, or uncorrected word substitutions Although every attempt has been made by the provider to proofread this document, occasional misspellings and typographical errors may still be present Due to the previous pandemic, and the use of personal protective equipment (PPE) This may decrease voice recognition accuracy Inadvertent diesel locomotive crane operator errors may occur 03/27/2024 Dietary counseling [...] software and direct typing Please excuse inadvertent diesel locomotive crane operator or typing errors, or uncorrected word substitutions Although every attempt has been made by the provider to proofread this document, occasional misspellings and typographical errors may still be present Due to the previous pandemic, and the use of personal protective equipment (PPE) This may decrease voice recognition accuracy Inadvertent diesel locomotive crane operator errors may occur 03/27/2024 Migraine without [...] software and direct typing Please excuse inadvertent diesel locomotive crane operator or typing errors, or uncorrected word substitutions Although every attempt has been made by the provider to proofread this document, occasional misspellings and typographical errors may still be present Due to the previous pandemic, and the use of personal protective equipment (PPE) This may decrease voice recognition accuracy Inadvertent diesel locomotive crane operator errors may occur PLAN OF TREATMENT Medication Medication Name Sig Start Date Stop Date Notes MiraLax 17 GM 1 packet mixed with 8 ounces of fluid Orally Once a day for 30 days Zepbound 5 MG/0.5ML 5mg Subcutaneous weekly for 30 days Next Appt Details Provider Name:CISCO OWENS, 06/13/2024 11:15:00 AM, [address] [facility] [address], [address], Progress Notes * Madonna HANSENOB: 4 (48 yo F)Acc No.[id number]:03/27/2024 Patient:??Shira HANSEN Provider:??CISCO OWENS NP :1975?Age:48 Y?Sex:Fe male Date:03/27/2024 Address:[address], [place], [place] Subjective: * Chief Complaints: * ?1. PT [...] satiety ?Had updated labs with primary care, [facility] 07/2023 ?reports this medicine as it has changed her life she says ?Injection Day: varies ?She has done very well and thriving ?utilizing strength and resistance training ?Significant fat mass loss and maintaining good muscle composition ?03/27/2024, Weight 160lbs , BMI 25 ?01/19/2024, Weight 161lbs , BMI 25 (-4lbs) ?11/17/2023, Weight 165lbs, BMI 25.8 ?09/20/2023, [id number] , BMI 25.7 ?08/03/2023, Weight 165lbs , BMI 25 ?05/12/2023, Weight 165lbs , BMI 25 (-11lbs) ?03/06/2023: Weight 176lbs, BMI 27, (-11lbs) ?01/18/2023: Weight 187lbs, BMI 29 (-19) ?11/23/2022: Weight 206 lbs, BMI: 32 ?Patient referred to us from her co-worker, Avani Ayala ?Patient works as RN at [employer] ?Highest weight: 277 lbs ?Lowest [...] software and direct typing Please excuse inadvertent diesel locomotive crane operator or typing errors, or uncorrected word substitutions Although every attempt has been made by the provider to proofread this document, occasional misspellings and typographical errors may still be present Due to the previous pandemic, and the use of personal protective equipment (PPE) This may decrease voice recognition accuracy Inadvertent diesel locomotive crane operator errors may occur. Plan: * Treatment: * Procedure Codes:??G0447 FCE- FCE BEHAVRL CNSL OBESITY 15 MIN, Modifiers: 59 * Images: Billing Information: * Visit Code:?? 04259 Office Visit, Est Pt., Level 4. * [...] satiety Had updated labs with primary care, [facility] 07/2023 reports this medicine as it has changed her life she says Injection Day: varies She has done very well and thriving utilizing strength and resistance training Significant fat mass loss and maintaining good muscle composition 03/27/2024, Weight 160lbs , BMI 25 01/19/2024, Weight 161lbs , BMI 25 (-4lbs) 11/17/2023, Weight 165lbs, BMI 25.8 09/20/2023, [id number] , BMI 25.7 08/03/2023, Weight 165lbs , BMI 25 05/12/2023, Weight 165lbs , BMI 25 (-11lbs) 03/06/2023: Weight 176lbs, BMI 27, (-11lbs) 01/18/2023: Weight 187lbs, BMI 29 (-19) 11/23/2022: Weight 206 lbs, BMI: 32 Patient referred to us from her co-worker, Avani Ayala 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
--- OUTSIDE RECORDS SUMMARY | 2024-05-10 13:27 | XMS_ITS ---
Author Organization [facility] Address [address] [place] [address] Care Team Providers Care Broadcast Program Director Name Role Phone CISCO OWENS Unavailable [phone] REASON FOR VISIT prescription Encounters Encounter Location Date Provider Diagnosis [address] [facility] [address] [place] [address] 01/22/2024 CISCO OWENS PLAN OF TREATMENT Next Appt Details Provider Name:CISCO OWENS, 06/13/2024 11:15:00 AM, [address], [address], [place], [address], Progress Notes * ALLENMadonnaOB: 4 (48 yo F)Acc No.[id number]:01/22/2024 Patient:??ALLENShira :1975?Age:48 Y?Sex:Fe male Address:[address] [place] [address] * true * Date:??
--- OUTSIDE RECORDS SUMMARY | 2024-05-10 13:27 | XMS_ITS ---
[...] track activity level. Consider using apps like TrackBill, myfitnesspal, lose it, stick as needed for self-monitoring and weight management. Consider group exercises. Consider hiring a certified personal chef. Regular exercise is [place] to sustainable health [...] counseling and psychiatry and Dr Patterson at [facility]. We would like to cover regular topics [...] software and direct typing Please excuse inadvertent director of training or typing errors, or uncorrected word substitutions Although every attempt has been made by the provider to proofread this document, occasional misspellings and typographical errors may still be present Due to the previous pandemic, and the use of personal protective equipment (PPE) This may decrease voice recognition accuracy Inadvertent director of training errors may occur 09/20/2023 Overweight (BMI 25.0-29.9) [...] track activity level. Consider using apps like TrackBill, SkyPilot Networkspal, lose it, stick as needed for self-monitoring and weight management. Consider group exercises. Consider hiring a certified personal chef. Regular exercise is [place] to sustainable health [...] counseling and psychiatry and Dr Patterson at [facility]. We would like to cover regular topics [...] software and direct typing Please excuse inadvertent director of training or typing errors, or uncorrected word substitutions Although every attempt has been made by the provider to proofread this document, occasional misspellings and typographical errors may still be present Due to the previous pandemic, and the use of personal protective equipment (PPE) This may decrease voice recognition accuracy Inadvertent director of training errors may occur 11/17/2023 BMI 25.0-25.9,adult (ICD-10 [...] track activity level. Consider using apps like TrackBill, SkyPilot Networkspal, lose it, stick as needed for self-monitoring and weight management. Consider group exercises. Consider hiring a certified personal chef. Regular exercise is [place] to sustainable health [...] counseling and psychiatry and Dr Patterson at [facility]. We would like to cover regular topics [...] software and direct typing Please excuse inadvertent director of training or typing errors, or uncorrected word substitutions Although every attempt has been made by the provider to proofread this document, occasional misspellings and typographical errors may still be present Due to the previous pandemic, and the use of personal protective equipment (PPE) This may decrease voice recognition accuracy Inadvertent director of training errors may occur 11/17/2023 BMI 25.0-25.9,adult (ICD-10 [...] track activity level. Consider using apps like TrackBill, SkyPilot Networkspal, lose it, stick as needed for self-monitoring and weight management. Consider group exercises. Consider hiring a certified personal chef. Regular exercise is [place] to sustainable health [...] counseling and psychiatry and Dr Patterson at [facility]. We would like to cover regular topics [...] software and direct typing Please excuse inadvertent director of training or typing errors, or uncorrected word substitutions Although every attempt has been made by the provider to proofread this document, occasional misspellings and typographical errors may still be present Due to the previous pandemic, and the use of personal protective equipment (PPE) This may decrease voice recognition accuracy Inadvertent director of training errors may occur 01/19/2024 BMI 25.0-25.9,adult (ICD-10 [...] track activity level. Consider using apps like TrackBill, CoreworxfitPushToTestpal, lose it, stick as needed for self-monitoring and weight management. Consider group exercises. Consider hiring a certified personal chef. Regular exercise is [place] to sustainable health [...] counseling and psychiatry and Dr Patterson at [facility]. We would like to cover regular topics [...] software and direct typing Please excuse inadvertent director of training or typing errors, or uncorrected word substitutions Although every attempt has been made by the provider to proofread this document, occasional misspellings and typographical errors may still be present Due to the previous pandemic, and the use of personal protective equipment (PPE) This may decrease voice recognition accuracy Inadvertent director of training errors may occur 03/27/2024 BMI 25.0-25.9,adult (ICD-10 [...] software and direct typing Please excuse inadvertent director of training or typing errors, or uncorrected word substitutions Although every attempt has been made by the provider to proofread this document, occasional misspellings and typographical errors may still be present Due to the previous pandemic, and the use of personal protective equipment (PPE) This may decrease voice recognition accuracy Inadvertent director of training errors may occur 03/27/2024 Overweight (BMI 25.0-29.9) [...] software and direct typing Please excuse inadvertent director of training or typing errors, or uncorrected word substitutions Although every attempt has been made by the provider to proofread this document, occasional misspellings and typographical errors may still be present Due to the previous pandemic, and the use of personal protective equipment (PPE) This may decrease voice recognition accuracy Inadvertent director of training errors may occur 01/19/2024 Overweight (BMI 25.0-29.9) (ICD-10 - E66.3) #Weight Management 01/19/2024 ciera Will send 5 [...] track activity level. Consider using apps like TrackBill, SkyPilot Networkspal, lose it, stick as needed for self-monitoring and weight management. Consider group exercises. Consider hiring a certified personal chef. Regular exercise is [place] to sustainable health [...] counseling and psychiatry and Dr Patterson at [facility]. We would like to cover regular topics [...] software and direct typing Please excuse inadvertent director of training or typing errors, or uncorrected word substitutions Although every attempt has been made by the provider to proofread this document, occasional misspellings and typographical errors may still be present Due to the previous pandemic, and the use of personal protective equipment (PPE) This may decrease voice recognition accuracy Inadvertent director of training errors may occur 11/17/2023 Overweight (BMI 25.0-29.9) [...] track activity level. Consider using apps like TrackBill, SkyPilot Networkspal, lose it, stick as needed for self-monitoring and weight management. Consider group exercises. Consider hiring a certified personal chef. Regular exercise is [place] to sustainable health [...] counseling and psychiatry and Dr Patterson at [facility]. We would like to cover regular topics [...] software and direct typing Please excuse inadvertent director of training or typing errors, or uncorrected word substitutions Although every attempt has been made by the provider to proofread this document, occasional misspellings and typographical errors may still be present Due to the previous pandemic, and the use of personal protective equipment (PPE) This may decrease voice recognition accuracy Inadvertent director of training errors may occur 11/17/2023 Overweight (BMI 25.0-29.9) [...] track activity level. Consider using apps like TrackBill, myfitnesspal, lose it, stick as needed for self-monitoring and weight management. Consider group exercises. Consider hiring a certified personal chef. Regular exercise is [place] to sustainable health [...] counseling and psychiatry and Dr Patterson at [facility]. We would like to cover regular topics [...] software and direct typing Please excuse inadvertent director of training or typing errors, or uncorrected word substitutions Although every attempt has been made by the provider to proofread this document, occasional misspellings and typographical errors may still be present Due to the previous pandemic, and the use of personal protective equipment (PPE) This may decrease voice recognition accuracy Inadvertent director of training errors may occur 08/03/2023 Migraine without aura [...] track activity level. Consider using apps like TrackBill, myfitPushToTestpal, lose it, stick as needed for self-monitoring and weight management. Consider group exercises. Consider hiring a certified personal chef. Regular exercise is [place] to sustainable health [...] counseling and psychiatry and Dr Patterson at [facility]. We would like to cover regular topics [...] software and direct typing Please excuse inadvertent director of training or typing errors, or uncorrected word substitutions Although every attempt has been made by the provider to proofread this document, occasional misspellings and typographical errors may still be present Due to the previous pandemic, and the use of personal protective equipment (PPE) This may decrease voice recognition accuracy Inadvertent director of training errors may occur 09/20/2023 Dietary counseling and [...] track activity level. Consider using apps like TrackBill, myfitnesspal, lose it, stick as needed for self-monitoring and weight management. Consider group exercises. Consider hiring a certified personal chef. Regular exercise is [place] to sustainable health [...] counseling and psychiatry and Dr Patterson at [facility]. We would like to cover regular topics [...] software and direct typing Please excuse inadvertent director of training or typing errors, or uncorrected word substitutions Although every attempt has been made by the provider to proofread this document, occasional misspellings and typographical errors may still be present Due to the previous pandemic, and the use of personal protective equipment (PPE) This may decrease voice recognition accuracy Inadvertent director of training errors may occur 05/12/2023 Migraine without aura [...] track activity level. Consider using apps like TrackBill, [employer]Pilot Networkspal, lose it, stick as needed for self-monitoring and weight management. Consider group exercises. Consider hiring a certified personal chef. Regular exercise is [place] to sustainable health [...] counseling and psychiatry and Dr Patterson at [facility]. We would like to cover regular topics [...] software and direct typing Please excuse inadvertent director of training or typing errors, or uncorrected word substitutions Although every attempt has been made by the provider to proofread this document, occasional misspellings and typographical errors may still be present Due to the previous pandemic, and the use of personal protective equipment (PPE) This may decrease voice recognition accuracy Inadvertent director of training errors may occur 05/12/2023 Overweight (BMI 25.0-29.9) [...] track activity level. Consider using apps like TrackBill, myfitnesspal, lose it, stick as needed for self-monitoring and weight management. Consider group exercises. Consider hiring a certified personal chef. Regular exercise is [place] to sustainable health [...] counseling and psychiatry and Dr Patterson at [facility]. We would like to cover regular topics [...] software and direct typing Please excuse inadvertent director of training or typing errors, or uncorrected word substitutions Although every attempt has been made by the provider to proofread this document, occasional misspellings and typographical errors may still be present Due to the previous pandemic, and the use of personal protective equipment (PPE) This may decrease voice recognition accuracy Inadvertent director of training errors may occur 05/12/2023 BMI 25.0-25.9,adult (ICD-10 [...] track activity level. Consider using apps like TrackBill, myfitPushToTestpal, lose it, stick as needed for self-monitoring and weight management. Consider group exercises. Consider hiring a certified personal chef. Regular exercise is [place] to sustainable health [...] counseling and psychiatry and Dr Patterson at [facility]. We would like to cover regular topics [...] software and direct typing Please excuse inadvertent director of training or typing errors, or uncorrected word substitutions Although every attempt has been made by the provider to proofread this document, occasional misspellings and typographical errors may still be present Due to the previous pandemic, and the use of personal protective equipment (PPE) This may decrease voice recognition accuracy Inadvertent director of training errors may occur 09/20/2023 Migraine without aura [...] track activity level. Consider using apps like TrackBill, myfitPushToTestpal, lose it, stick as needed for self-monitoring and weight management. Consider group exercises. Consider hiring a certified personal chef. Regular exercise is [place] to sustainable health [...] counseling and psychiatry and Dr Patterson at [facility]. We would like to cover regular topics [...] software and direct typing Please excuse inadvertent director of training or typing errors, or uncorrected word substitutions Although every attempt has been made by the provider to proofread this document, occasional misspellings and typographical errors may still be present Due to the previous pandemic, and the use of personal protective equipment (PPE) This may decrease voice recognition accuracy Inadvertent director of training errors may occur 11/17/2023 Dietary counseling and [...] track activity level. Consider using apps like TrackBill, SkyPilot Networkspal, lose it, stick as needed for self-monitoring and weight management. Consider group exercises. Consider hiring a certified personal chef. Regular exercise is [place] to sustainable health [...] counseling and psychiatry and Dr Patterson at [facility]. We would like to cover regular topics [...] software and direct typing Please excuse inadvertent director of training or typing errors, or uncorrected word substitutions Although every attempt has been made by the provider to proofread this document, occasional misspellings and typographical errors may still be present Due to the previous pandemic, and the use of personal protective equipment (PPE) This may decrease voice recognition accuracy Inadvertent director of training errors may occur 11/17/2023 Dietary counseling and [...] track activity level. Consider using apps like TrackBill, SkyPilot Networkspal, lose it, stick as needed for self-monitoring and weight management. Consider group exercises. Consider hiring a certified personal chef. Regular exercise is [place] to sustainable health [...] counseling and psychiatry and Dr Patterson at [facility]. We would like to cover regular topics [...] software and direct typing Please excuse inadvertent director of training or typing errors, or uncorrected word substitutions Although every attempt has been made by the provider to proofread this document, occasional misspellings and typographical errors may still be present Due to the previous pandemic, and the use of personal protective equipment (PPE) This may decrease voice recognition accuracy Inadvertent director of training errors may occur 01/19/2024 Dietary counseling and [...] track activity level. Consider using apps like TrackBill, SkyPilot Networkspal, lose it, stick as needed for self-monitoring and weight management. Consider group exercises. Consider hiring a certified personal chef. Regular exercise is [place] to sustainable health [...] counseling and psychiatry and Dr Patterson at [facility]. We would like to cover regular topics [...] software and direct typing Please excuse inadvertent director of training or typing errors, or uncorrected word substitutions Although every attempt has been made by the provider to proofread this document, occasional misspellings and typographical errors may still be present Due to the previous pandemic, and the use of personal protective equipment (PPE) This may decrease voice recognition accuracy Inadvertent director of training errors may occur 03/27/2024 Dietary counseling and [...] software and direct typing Please excuse inadvertent director of training or typing errors, or uncorrected word substitutions Although every attempt has been made by the provider to proofread this document, occasional misspellings and typographical errors may still be present Due to the previous pandemic, and the use of personal protective equipment (PPE) This may decrease voice recognition accuracy Inadvertent director of training errors may occur 08/03/2023 Overweight (BMI 25.0-29.9) [...] track activity level. Consider using apps like TrackBill, SkyPilot Networkspal, lose it, stick as needed for self-monitoring and weight management. Consider group exercises. Consider hiring a certified personal chef. Regular exercise is [place] to sustainable health [...] counseling and psychiatry and Dr Patterson at [facility]. We would like to cover regular topics [...] software and direct typing Please excuse inadvertent director of training or typing errors, or uncorrected word substitutions Although every attempt has been made by the provider to proofread this document, occasional misspellings and typographical errors may still be present Due to the previous pandemic, and the use of personal protective equipment (PPE) This may decrease voice recognition accuracy Inadvertent director of training errors may occur 03/27/2024 Migraine without aura [...] software and direct typing Please excuse inadvertent director of training or typing errors, or uncorrected word substitutions Although every attempt has been made by the provider to proofread this document, occasional misspellings and typographical errors may still be present Due to the previous pandemic, and the use of personal protective equipment (PPE) This may decrease voice recognition accuracy Inadvertent director of training errors may occur 01/19/2024 Migraine without aura and without status migrainosus, not intractable (ICD-10 - G43.009) #Weight Management 01/19/2024 ciera Will send 5 [...] track activity level. Consider using apps like TrackBill, SkyPilot Networkspal, lose it, stick as needed for self-monitoring and weight management. Consider group exercises. Consider hiring a certified personal chef. Regular exercise is [place] to sustainable health [...] counseling and psychiatry and Dr Patterson at [facility]. We would like to cover regular topics [...] software and direct typing Please excuse inadvertent director of training or typing errors, or uncorrected word substitutions Although every attempt has been made by the provider to proofread this document, occasional misspellings and typographical errors may still be present Due to the previous pandemic, and the use of personal protective equipment (PPE) This may decrease voice recognition accuracy Inadvertent director of training errors may occur 11/17/2023 Migraine without aura [...] track activity level. Consider using apps like TrackBill, SkyPilot Networkspal, lose it, stick as needed for self-monitoring and weight management. Consider group exercises. Consider hiring a certified personal chef. Regular exercise is [place] to sustainable health [...] counseling and psychiatry and Dr Patterson at [facility]. We would like to cover regular topics [...] software and direct typing Please excuse inadvertent director of training or typing errors, or uncorrected word substitutions Although every attempt has been made by the provider to proofread this document, occasional misspellings and typographical errors may still be present Due to the previous pandemic, and the use of personal protective equipment (PPE) This may decrease voice recognition accuracy Inadvertent director of training errors may occur 11/17/2023 Migraine without aura [...] track activity level. Consider using apps like TrackBill, myfitnesspal, lose it, stick as needed for self-monitoring and weight management. Consider group exercises. Consider hiring a certified personal chef. Regular exercise is [place] to sustainable health [...] counseling and psychiatry and Dr Patterson at [facility]. We would like to cover regular topics [...] software and direct typing Please excuse inadvertent director of training or typing errors, or uncorrected word substitutions Although every attempt has been made by the provider to proofread this document, occasional misspellings and typographical errors may still be present Due to the previous pandemic, and the use of personal protective equipment (PPE) This may decrease voice recognition accuracy Inadvertent director of training errors may occur 08/03/2023 BMI 25.0-25.9,adult (ICD-10 [...] track activity level. Consider using apps like TrackBill, myfitnesspal, lose it, stick as needed for self-monitoring and weight management. Consider group exercises. Consider hiring a certified personal chef. Regular exercise is [place] to sustainable health [...] counseling and psychiatry and Dr Patterson at [facility]. We would like to cover regular topics [...] software and direct typing Please excuse inadvertent director of training or typing errors, or uncorrected word substitutions Although every attempt has been made by the provider to proofread this document, occasional misspellings and typographical errors may still be present Due to the previous pandemic, and the use of personal protective equipment (PPE) This may decrease voice recognition accuracy Inadvertent director of training errors may occur PLAN OF TREATMENT Next Appt Details Provider Name:CISCO OWENS, 06/13/2024 11:15:00 AM, [address], [address], [place], [address], Insurance Providers Payer Name Payer Address Payer Phone Subscriber Number Group Number Insured Name Patient Relationship to Insured Coverage Start Date Coverage End Date [place] [address] [address] [place] [address] [id number] Shira Allen Self - patient is the insured MEDICAL (GENERAL) HISTORY Medical History History ICD Code hyperlipidemia migraine headaches obesity asthma liver adenoma add lumbar radiculopathy lumber facet joint syndrome disc herination high cholesterol anxiety hearing loss Surgical History Surgery Date(Month/Year) RT shoulder slap procedure 2011 Lap Celina 1996 Total Hysterectomy 2017 Tympanostomy x13 as a child Adnoidectomy as a child Patient Health Record Created on: May 10, 2024 Shira Allen : 1975 Sex: Female Author Organization [facility] Address [address] [place] [id number] Care Team Providers Care Manager Resource Name Role Phone CISCO OWENS Unavailable [phone] ALLERGIES Allergen (clinical drug ingredient) Drug/Non Drug [...] due to excess calories (E66.09) Active confirmed 111153768 Problem Body mass index [BMI] 32.0-32.9, adult (Z68.32) Active confirmed 831204967 Problem Migraine without aura and without status migrainosus, not intractable (G43.009) Active confirmed 383041378 Problem Overweight (BMI 25.0-29.9) (E66.3) Active confirmed Overweight (271238709) VITAL SIGNS Heart Rate 76 /min 03/27/2024 Oximetry 98 % 03/27/2024 Blood pressure diastolic 76 mm Hg 03/27/2024 Height 67 in 03/27/2024 Blood pressure systolic 124 mm Hg 03/27/2024 Weight 160.8 lbs 03/27/2024 BMI 25.18 kg/m2 03/27/2024 Encounters Encounter Location Date Provider Diagnosis [facility] [address] [facility] [address] [place] [address] 11/17/2023 CISCO BORHOT BMI 25.0-25.9,adult Z68.25 ; Overweight (BMI 25.0-29.9) E66.3 ; Dietary counseling and surveillance Z71.3 and Migraine without aura and without status migrainosus, not intractable G43.009 [place] [id number] [address] [place]23[place] [address] 12/13/2023 CISCO BORHOT [address] [phone] 05/12/2023 CISCO BORHOT Other obesity due to excess calories E66.09 ; Migraine without aura and without status migrainosus, not intractable G43.009 ; Overweight (BMI 25.0-29.9) E66.3 and BMI 25.0-25.9,adult Z68.[address] 08/03/2023 CISCO BORHOT Other obesity due to excess calories E66.09 ; Migraine without aura and without status migrainosus, not intractable G43.009 ; Overweight (BMI 25.0-29.9) E66.3 and BMI 25.0-25.9,adult Z68.[address] 09/20/2023 CISCO BORHOT Overweight (BMI 25.0-29.9) E66.3 ; BMI 25.0-25.9,adult Z68.25 ; Dietary counseling and surveillance Z71.3 and Migraine without aura and without status migrainosus, not intractable G43.009 [place] [address] [address] 11/17/2023 CISCO BORHOT BMI 25.0-25.9,adult Z68.25 ; Overweight (BMI 25.0-29.9) E66.3 ; Dietary counseling and surveillance Z71.3 and Migraine without aura and without status migrainosus, not intractable G43.[address] [address] 01/19/2024 CISCO OWENS BMI 25.0-25.9,adult Z68.25 ; Overweight (BMI 25.0-29.9) E66.3 ; Dietary counseling and surveillance Z71.3 and Migraine without aura and without status migrainosus, not intractable G43.[address] [place] [address] [place] [address] 03/27/2024 CISCO MCCALL BMI 25.0-25.9,adult Z68.25 ; Overweight (BMI 25.0-29.9) E66.3 ; Dietary counseling and surveillance Z71.3 and Migraine without aura and without status migrainosus, not intractable G43.[address] [place] [address] [place] [address] 08/01/2023 [facility] [address] [place] [address] [facility] [address] [address] 08/03/2023 [facility] [address] [facility] [address] [address] 11/15/2023 [facility] [address] [place] [address] 12/21/2023 [facility] [address] [address] 06/28/2023 [facility] [address] [address] 08/03/2023 [facility] [address] [facility] [address] [address] 12/22/2023 [facility] [address] [facility] [address] [place] [address] 01/22/2024 [facility] [address] [facility] [address] [address] [address] 01/22/2024 [facility] Encounter Date Diagnosis Assessment Notes Treatment [...] track activity level. Consider using apps like TrackBill, SkyPilot Networkspal, lose it, stick as needed for self-monitoring and weight management. Consider group exercises. Consider hiring a certified personal chef. Regular exercise is ocampo to sustainable health [...] counseling and psychiatry and Dr Patterson at [facility]. We would like to cover regular topics [...] software and direct typing Please excuse inadvertent director of training or typing errors, or uncorrected word substitutions Although every attempt has been made by the provider to proofread this document, occasional misspellings and typographical errors may still be present Due to the previous pandemic, and the use of personal protective equipment (PPE) This may decrease voice recognition accuracy Inadvertent director of training errors may occur 08/03/2023 Other obesity due [...] track activity level. Consider using apps like TrackBill, SkyPilot Networkspal, lose it, stick as needed for self-monitoring and weight management. Consider group exercises. Consider hiring a certified personal chef. Regular exercise is ocampo to sustainable health [...] counseling and psychiatry and Dr Patterson at [facility]. We would like to cover regular topics [...] software and direct typing Please excuse inadvertent director of training or typing errors, or uncorrected word substitutions Although every attempt has been made by the provider to proofread this document, occasional misspellings and typographical errors may still be present Due to the previous pandemic, and the use of personal protective equipment (PPE) This may decrease voice recognition accuracy Inadvertent director of training errors may occur 09/20/2023 BMI 25.0-25.9,adult (ICD-10 [...]
--- OUTSIDE RECORDS SUMMARY | 2024-05-10 13:27 | XMS_ITS ---
Author Organization [email or web address] Address [address] [place] [address] Care Team Providers Care Vault Attendant Name Role Phone GRACIELA CISCO Unavailable [phone] REASON FOR VISIT prescription MEDICATIONS Medication SIG (Take, Route, Frequency, Duration) Notes Start Date End Date Status MiraLax 17 GM/SCOOP 1 scoop mixed with 8 ounces of fluid Orally Once a day for 30 days allow for generic bottle 01/22/2024 Active Encounters Encounter Location Date Provider Diagnosis [address] [facility] [address] [place] [address] 01/22/2024 CISCO OWENS PLAN OF TREATMENT Medication Medication Name Sig Start Date Stop Date Notes MiraLax 17 GM/SCOOP 1 scoop mixed with 8 ounces of fluid Orally Once a day for 30 days 01/22/2024 allow for generic bottle Next Appt Details Provider Name:CISCO OWENS, 06/13/2024 11:15:00 AM, [address] [facility], [address], [place], [address], Progress Notes * Madonna HANSENOB: 4 (48 yo F)Acc No.[id number]:01/22/2024 Patient:??Shira HANSEN :1975?Age:48 Y?Sex:Fe male [address] [address] * Refills?? Start MiraLax Powder, 17 GM/SCOOP, Orally, 1 Unspecified, 1 scoop mixed with 8 ounces of fluid, Once a day, 30 days, Refills=5 * true * Date:??
== END 2024-05-10 13:24 | disposition home or self-care (01) ==
LOC: HO.MAMMO 13:23
PROVIDERS: PCP Internal Medicine; Visit Provider Internal Medicine
DX: Z12.31 Encounter for screening mammogram for malignant neoplasm of breast (principal)
CPT/HCPCS: 77063; 77067

== ENCOUNTER → 2024-05-10 14:00 | Outpatient (BNV) | payer OTHER, SELFPAY | PROVIDERS: PCP Internal Medicine; Visit Provider Internal Medicine | DX: Z12.31 Encounter for screening mammogram for malignant neoplasm of breast (principal) | CPT/HCPCS: 77063; 77067 ==

== ENCOUNTER 2024-08-08 07:33 | Outpatient (REF) | payer OTHER, SELFPAY ==
--- OUTSIDE RECORDS SUMMARY | 2024-08-08 07:37 | XMS_ITS ---
Author Organization [facility] Address [address] [place] [address] Care Team Providers Care Painter Maintenance Name Role Phone CISCO OWENS Unavailable [phone] ALLERGIES Allergen (clinical drug ingredient) Drug/Non Drug [...] Overweight (BMI 25.0-29.9) (E66.3) Active confirmed Overweight ([id number]) VITAL SIGNS Blood pressure systolic 124 mm Hg 03/27/20 24 Blood pressure diastolic 76 mm Hg 024 Heart Rate 76 /min 03/27/2024 Height 67 in 03/27/2024 Weight 160.8 lbs 03/27/2024 BMI 25.18 kg/m2 03/27/2024 Oximetry 98 % 03/27/2024 Encounters Encounter Location Date Provider Diagnosis [facility] 119 299 [facility] 119 [place] [address] 03/27/2024 CISCO MCCALLTaz BMI 25.0-25.9,adult Z68.25 ; [...] software and direct typing Please excuse inadvertent pr intern or typing errors, or uncorrected word substitutions Although every attempt has been made by the provider to proofread this document, occasional misspellings and typographical errors may still be present Due to the previous pandemic, and the use of personal protective equipment (PPE) This may decrease voice recognition accuracy Inadvertent pr intern errors may occur 03/27/2024 Overweight (BMI 25.0-29.9) [...] software and direct typing Please excuse inadvertent pr intern or typing errors, or uncorrected word substitutions Although every attempt has been made by the provider to proofread this document, occasional misspellings and typographical errors may still be present Due to the previous pandemic, and the use of personal protective equipment (PPE) This may decrease voice recognition accuracy Inadvertent pr intern errors may occur 03/27/2024 Dietary counseling and [...] software and direct typing Please excuse inadvertent pr intern or typing errors, or uncorrected word substitutions Although every attempt has been made by the provider to proofread this document, occasional misspellings and typographical errors may still be present Due to the previous pandemic, and the use of personal protective equipment (PPE) This may decrease voice recognition accuracy Inadvertent pr intern errors may occur 03/27/2024 Migraine without aura [...] software and direct typing Please excuse inadvertent pr intern or typing errors, or uncorrected word substitutions Although every attempt has been made by the provider to proofread this document, occasional misspellings and typographical errors may still be present Due to the previous pandemic, and the use of personal protective equipment (PPE) This may decrease voice recognition accuracy Inadvertent pr intern errors may occur PLAN OF TREATMENT Medication Medication Name Sig Start Date Stop Date Notes MiraLax 17 GM 1 packet mixed with 8 ounces of fluid Orally Once a day for 30 days Zepbound 5 MG/0.5ML 5mg Subcutaneous weekly for 30 days Next Appt Details Provider Name:CISCO OWENS, 08/29/2024 11:00:00 AM, 299 [facility] [address], [address], Progress Notes * Madonna HANSENOB: 4 (48 yo F)Acc No.[id number]:03/27/2024 Patient:??Shira HANSEN Provider:??CISCO OWENS NP :1975?Age:48 Y?Sex:Fe male Date:03/27/2024 Address:[address], [place], [place] Subjective: * Chief Complaints: * ?1. PT [...] satiety ?Had updated labs with primary care, [facility] 07/2023 ?reports this medicine as it has changed her life she says ?Injection Day: varies ?She has done very well and thriving ?utilizing strength and resistance training ?Significant fat mass loss and maintaining good muscle composition ?03/27/2024, Weight 160lbs , BMI 25 ?01/19/2024, Weight 161lbs , BMI 25 (-4lbs) ?11/17/2023, Weight 165lbs, BMI 25.8 ?09/20/2023, [id number] , BMI 25.7 ?08/03/2023, Weight 165lbs , BMI 25 ?05/12/2023, Weight 165lbs , BMI 25 (-11lbs) ?03/06/2023: Weight 176lbs, BMI 27, (-11lbs) ?01/18/2023: Weight 187lbs, BMI 29 (-19) ?11/23/2022: Weight 206 lbs, BMI: 32 ?Patient referred to us from her co-worker, Avani Ayala ?Patient works as RN at [employer] ?Highest weight: 277 lbs ?Lowest [...] software and direct typing Please excuse inadvertent pr intern or typing errors, or uncorrected word substitutions Although every attempt has been made by the provider to proofread this document, occasional misspellings and typographical errors may still be present Due to the previous pandemic, and the use of personal protective equipment (PPE) This may decrease voice recognition accuracy Inadvertent pr intern errors may occur. Plan: * Treatment: * Procedure Codes:??G0447 FCE- FCE BEHAVRL CNSL OBESITY 15 MIN, Modifiers: 59 * Images: Billing Information: * Visit Code:?? 62858 Office Visit, Est Pt., Level 4. * [...] satiety Had updated labs with primary care, [facility] 07/2023 reports this medicine as it has changed her life she says Injection Day: varies She has done very well and thriving utilizing strength and resistance training Significant fat mass loss and maintaining good muscle composition 03/27/2024, Weight 160lbs , BMI 25 01/19/2024, Weight 161lbs , BMI 25 (-4lbs) 11/17/2023, Weight 165lbs, BMI 25.8 09/20/2023, [id number] , BMI 25.7 08/03/2023, Weight 165lbs , BMI 25 05/12/2023, Weight 165lbs , BMI 25 (-11lbs) 03/06/2023: Weight 176lbs, BMI 27, (-11lbs) 01/18/2023: Weight 187lbs, BMI 29 (-19) 11/23/2022: Weight 206 lbs, BMI: 32 Patient referred to us from her co-worker, Avani Ayala 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
--- OUTSIDE RECORDS SUMMARY | 2024-08-08 07:37 | XMS_ITS ---
Author Organization [facility] Address [address] [place] [address] Care Team Providers Care Residential Instructor Name Role Phone CISCO OWENS Unavailable [phone] ALLERGIES Allergen (clinical drug ingredient) Drug/Non Drug Allergy documented on EMR Reaction Allergy Type Onset Date Status ciprofloxacin Cipro Unknown Drug Allergy Act brock promethazine Phenergan anaphylaxis Drug Allergy Ac tive metoclopramide Reglan anaphylaxis Drug Allergy Active scopolamine Scopolamine anaphylaxis Drug Allergy A ctive REASON FOR VISIT Pt here for weight management follow up, SECA done. MEDICATIONS Medication SIG (Take, Route, Frequency, Duration) Notes Start Date End Date Status Zepbound 5 MG/0.5ML 5mg Subcutaneous weekly for 30 days Active MiraLax 17 GM 1 packet mixed with 8 ounces of fluid Orally Once a day for 30 days Active Nurtec 75 MG DISSOLVE ONE TABLET UNDER TONGUE EVERY OTHER DAY NEEDED FOR MIGRAINE HEADACHE Oral for 30 Days Active Ondansetron 4 MG DISSOLVE ONE TABLET BY MOUTH EVERY 6 HOURS NEEDED FOR NAUSEA WITH MIGRAINES Oral for 3 Days Active MiraLax 17 GM/SCOOP 1 scoop mixed with 8 ounces of fluid Orally Once a day for 30 days allow for generic bottle 01/22/2024 Active Lidocaine 5 % APPLY ONE PATCH [...] NASALLY DAILY Nasal for 60 Days Active VITAL SIGNS Blood pressure systolic 112 mm Hg 07/16/19 25 Blood pressure diastolic 76 mm Hg 025 Heart Rate 77 /min 07/15/2024 Height 67 in 07/15/2024 Weight 156 lbs 07/15/2024 BMI 24.43 kg/m2 07/15/2024 Oximetry 99 % 07/15/2024 Encounters Encounter Location Date Provider Diagnosis [facility] [address] [place] [address] 07/15/2024 CISCO OWENS BMI 24.0-24.9, adult Z68.24 ; Dietary counseling and surveillance Z71.3 and Migraine without aura and without status migrainosus, not intractable G43.009 ASSESSMENTS Encounter Date Diagnosis Assessment Notes Treatment Notes Treatment Clinical Notes Section Notes 07/15/2024 BMI 24.0-24.9, adult (ICD-10 - Z68.24) #Weight Management 07/15/2024 _update labs thriving cont 5mg dosing, q2-3 weeks Total time spent today was 30 minutes of which greater than 50% was spent on coordinating and counseling Patient has been found to be normal with a BMI of (24). We are a board certified obesity and weight management practice Of note, some information is being carried forward from prior records for informational purposes only and is being cited so that efficiency, safety and quality of the patient's care is not compromised This note was prepared using voice recognition software and direct typing Please excuse inadvertent direct support staff or typing errors, or uncorrected word substitutions Although every attempt has been made by the provider to proofread this document, occasional misspellings and typographical errors may still be present Due to the previous pandemic, and the use of personal protective equipment (PPE) This may decrease voice recognition accuracy Inadvertent direct support staff errors may occur 07/15/2024 Dietary counseling and surveillance (ICD-10 - Z71.3) #Weight Management 07/15/2024 _update labs thriving cont 5mg dosing, q2-3 weeks Total time spent today was 30 minutes of which greater than 50% was spent on coordinating and counseling Patient has been found to be normal with a BMI of (24). We are a board certified obesity and weight management practice Of note, some information is being carried forward from prior records for informational purposes only and is being cited so that efficiency, safety and quality of the patient's care is not compromised This note was prepared using voice recognition software and direct typing Please excuse inadvertent direct support staff or typing errors, or uncorrected word substitutions Although every attempt has been made by the provider to proofread this document, occasional misspellings and typographical errors may still be present Due to the previous pandemic, and the use of personal protective equipment (PPE) This may decrease voice recognition accuracy Inadvertent direct support staff errors may occur 07/15/2024 Migraine without aura and without status migrainosus, not intractable (ICD-10 - G43.009) #Weight Management 07/15/2024 _update labs thriving cont 5mg dosing, q2-3 weeks Total time spent today was 30 minutes of which greater than 50% was spent on coordinating and counseling Patient has been found to be normal with a BMI of (24). We are a board certified obesity and weight management practice Of note, some information is being carried forward from prior records for informational purposes only and is being cited so that efficiency, safety and quality of the patient's care is not compromised This note was prepared using voice recognition software and direct typing Please excuse inadvertent direct support staff or typing errors, or uncorrected word substitutions Although every attempt has been made by the provider to proofread this document, occasional misspellings and typographical errors may still be present Due to the previous pandemic, and the use of personal protective equipment (PPE) This may decrease voice recognition accuracy Inadvertent direct support staff errors may occur PLAN OF TREATMENT Medication Medication Name Sig Start Date Stop Date Notes Zepbound 5 MG/0.5ML 5mg Subcutaneous weekly for 30 days MiraLax 17 GM 1 packet mixed with 8 ounces of fluid Orally Once a day for 30 days Pending Test Test Name Order Date LIPID PANEL, STANDARD 07/15/2024 COMPREHENSIVE METABOLIC PANEL 07/15/2024 CBC (INCLUDES DIFF/PLT) 07/15/2024 URINALYSIS, COMPLETE 07/15/2024 HEMOGLOBIN A1c 07/15/2024 TSH W/REFLEX TO FT4 07/15/2024 VITAMIN D,25-[place],TOTAL,IA 07/15/2024 Next Appt Details Provider Name:CISCO OWENS, 08/29/2024 11:00:00 AM, [address], [facility] [address], [place], [address], Progress Notes * Bert HANSEN: 4 (48 yo F)Acc No.[id number]:07/15/2024 Patient:??Shira HANSEN Provider:??CISCO OWENS NP :1975?Age:48 Y?Sex:Fe male Date:07/15/2024 Address:[address], [place], [id number] Subjective: * Chief Complaints: * ?1. Pt here for weight management follow up, SECA done.. * HPI: ?Constitutional:? Patient is here today for a weight management f/u visit ?Patient seen and examined. ?Full past medical history, social history, family history, ?allergies and current medications were reviewed and updated. ?#Weight Management ?07/15/2024 ?@target goal weight ?Zepbound 5 mg maintenance dosing varying from every 10-12 days depending on satiety ?due for labs ?Injection Day: varies ?She has done very well and thriving ?utilizing strength and resistance training ?Significant fat mass loss and maintaining good muscle composition ?reports this medicine as it has changed her life she says ?Diet: Eats a lot of fruits and vegetables. Does not track calories. ?Exercise: Currently 8,000-12,000 steps daily. Working as an RN, on her feet all day. ?Walks 3 miles on day off and weight lifiting. ?Non-smoker. No illicit drug use. ?ETOH use: 2 drinks a year ?07/15/2024, Weight 156lbs , BMI 24.3 (-4lbs) ?03/27/2024, Weight 160lbs , BMI 25 ?01/19/2024, Weight 161lbs , BMI 25 (-4lbs) ?11/17/2023, Weight 165lbs, BMI 25.8 ?09/20/2023, [id number] , BMI 25.7 ?08/03/2023, Weight 165lbs , BMI 25 ?05/12/2023, Weight 165lbs , BMI 25 (-11lbs) ?03/06/2023: Weight 176lbs, BMI 27, (-11lbs) ?01/18/2023: Weight 187lbs, BMI 29 (-19) ?11/23/2022: Weight 206 lbs, BMI: 32 ?Patient referred to us from her co-worker, Avani Ayala ?Patient works as RN at [employer] ?Highest weight: 277 lbs ?Lowest weight: 168 lbs ?Goal weight: 170 lbs ?NIYAH screening, has not been screened. ?Comprehensive labs July 2023 ?CBC is stable renal function and electrolytes, LFTs are stable ?Total cholesterol 194, triglycerides 68, LDL 123, HDL 58 ?Vitamin D 47 ?TSH 2.47 ?Hemoglobin A1c of 4.9 ?Had stress echo last year. * ROS:?All Other Systems:?Review of Systems [...] 2-3 socially times per year. * Medications:??Taking Zepboun d 5 MG/0.5ML Solution 5mg Subcutaneous weekly , Taking MiraLax 17 GM Packet 1 packet mixed with 8 ounces of fluid Orally Once a day , Taking Nurtec 75 MG Tablet Disintegrating DISSOLVE ONE [...] REMOVE FOR 12 HOURS External , Taking MiraLax 17 GM/SCOOP Powder 1 scoop mixed with 8 ounces of fluid Orally Once a day , Notes to Pharmacist: allow for generic bottle, Discontinued Mounjaro 5 MG/0.5ML Solution Pen-injector INJECT 5MG SUBCUTANEOUSLY EVERY WEEK , Discontinued Mounjaro 2.5 MG/0.5ML Solution Pen- injector 2.5mg Subcutaneous weekly , Discontinued Zepbound 5 MG/0.5ML Solution Auto- injector 5mg Subcutaneous weekly , Medication List reviewed and reconciled with the patient * Allergies:??Cipro, Reglan: a naphylaxis, Phenergan: anaphylaxis, Scopolamine: anaphylaxis. Objective: * Vitals:??HR:77/min, BP:112/7 6mm Hg, Wt:156lbs, BMI:24.43Index, Ht: 67 in, Oxygen sat %:99%. * Examination: ?General Examination: ?GENERAL APPEARANCE:??in no [...] extremities, sensory exam intact.? Assessment: * Assessment: 1.??BMI 24.0-24.9, adult - Z 68.24??2.??Dietary counseling and surveillance - Z71.3??3.??Migraine without aura and without status migrainosus, not intractable - G43.009?? #Weight Management 07/15/2024 _update labs thriving cont 5mg dosing, q2-3 weeks Total time spent today was 30 minutes of which greater than 50% was spent on coordinating and counseling Patient has been found to be normal with a BMI of (24). We are a board certified obesity and weight management practice Of note, some information is being carried forward from prior records for informational purposes only and is being cited so that efficiency, safety and quality of the patient's care is not compromised This note was prepared using voice recognition software and direct typing Please excuse inadvertent direct support staff or typing errors, or uncorrected word substitutions Although every attempt has been made by the provider to proofread this document, occasional misspellings and typographical errors may still be present Due to the previous pandemic, and the use of personal protective equipment (PPE) This may decrease voice recognition accuracy Inadvertent direct support staff errors may occur. Plan: * Treatment: * Labs:?? * ?Lab: HEMOGLOBIN A1 c ?Lab: VITAMIN D,25- [place],TOTAL,IA ?Lab: URINALYSIS, C OMPLETE ?Lab: COMPREHENSIVE METABOLIC PANEL ?Lab: CBC (INCLUDES DIFF/PLT) ?Lab: TSH W/REFLEX TO FT4 ?Lab: LIPID PANEL, STANDARD * Procedure Codes:??G0447 FCE- FCE BEHAVRL CNSL OBESITY 15 MIN, Modifiers: 59 * Images: Billing Information: * Visit Code:?? 04388 Office Visit, Est Pt., Level 4. Modifiers: 25, SA * Procedure Codes:?? G0447 FCE-FCE BEHAVRL CNSL OBESITY 15 MIN. Modifiers: 59 * Sign off status: Completed true * Provider:??CISCO OWENS NP Date:??06/29 History and Physical Notes * HPI (History of Present Illness) Category Sub-Category Detail Notes Category Not es Constitutional Patient is here today for a weight management f/u visit Patient seen and examined. Full past medical history, social history, family history, allergies and current medications were reviewed and updated. #Weight Management 07/15/2024 @target goal weight Zepbound 5 mg maintenance dosing varying from every 10-12 days depending on satiety due for labs Injection Day: varies She has done very well and thriving utilizing strength and resistance training Significant fat mass loss and maintaining good muscle composition reports this medicine as it has changed her life she says Diet: Eats a lot of fruits and vegetables. Does not track calories. Exercise: Currently 8,000-12,000 steps daily. Working as an RN, on her feet all day. Walks 3 miles on day off and weight lifiting. Non-smoker. No illicit drug use. ETOH use: 2 drinks a year 07/15/2024, Weight 156lbs , BMI 24.3 (-4lbs) 03/27/2024, Weight 160lbs , BMI 25 01/19/2024, Weight 161lbs , BMI 25 (-4lbs) 11/17/2023, Weight 165lbs, BMI 25.8 09/20/2023, [id number] , BMI 25.7 08/03/2023, Weight 165lbs , BMI 25 05/12/2023, Weight 165lbs , BMI 25 (-11lbs) 03/06/2023: Weight 176lbs, BMI 27, (-11lbs) 01/18/2023: Weight 187lbs, BMI 29 (-19) 11/23/2022: Weight 206 lbs, BMI: 32 Patient referred to us from her co-worker, Avani Ayala Patient works as RN at [employer] Highest weight: 277 lbs Lowest weight: 168 lbs Goal weight: 170 lbs NIYAH screening, has not been screened. Comprehensive labs July 2023 CBC is stable renal function and electrolytes, LFTs are stable Total cholesterol 194, triglycerides 68, LDL 123, HDL 58 Vitamin D 47 TSH 2.47 Hemoglobin A1c of 4.9 Had stress echo last year Examination Category Sub-Category Detail Notes Category Not es General Examination GENERAL APPEARANCE: in no ac [place] distress, well developed, well nourished HEAD: normocephalic, [...]
--- OUTSIDE RECORDS SUMMARY | 2024-08-08 07:37 | XMS_ITS ---
Author Organization [facility] Address [address] [place] [address] Care Team Providers Care Principal Statistical Scientist Name Role Phone CISCO OWENS Unavailable [phone] REASON FOR VISIT 07/15/24 appt Encounters Encounter Location Date Provider Diagnosis [address] [place] [address] 07/14/2024 CISCO OWENS PLAN OF TREATMENT Next Appt Details Provider Name:CISCO OWENS, 08/29/2024 11:00:00 AM, [address], [address], [place], [address], Progress Notes * HANSENMadonnaOB: 4 (48 yo F)Acc No.[id number]:07/14/2024 Patient:??Shira HANSEN :1975?Age:48 Y?Sex:Fe male Address:[place] [address] * true * Date:??
--- OUTSIDE RECORDS SUMMARY | 2024-08-08 07:37 | XMS_ITS | Patient Health Record ---
Author Organization [facility] Address [address] [place] [address] Care Team Providers Care Shipping And Receiving Weigher Name Role Phone CISCO OWENS Unavailable [phone] ALLERGIES Allergen (clinical drug ingredient) Drug/Non Drug [...] Once a day for 30 days Active MiraLax 17 GM/SCOOP 1 scoop mixed with 8 ounces of fluid Orally Once a day for 30 days allow for generic bottle 01/22/2024 Active Lidocaine 5 % APPLY ONE PATCH TOPICALLY DAILY TO MOST PAINFUL AREA FOR UP TO 12 HOURS NEEDED. THEN REMOVE FOR 12 HOURS External for 30 Days Active Fluticasone Propionate 50 MCG/ACT ADMINISTER 1 SPRAY NASALLY DAILY Nasal for 60 Days Active SUMAtriptan Succinate 100 MG TAKE 1 TABLET AT ONSET OF HEADACHE. MAY TAKE SECOND DOSE AFTER 2 HOURS IF NEEDED Oral for 30 Days Active Nurtec 75 MG DISSOLVE ONE TABLET UNDER TONGUE EVERY OTHER DAY NEEDED FOR MIGRAINE HEADACHE Oral for 30 Days Active Ondansetron 4 MG DISSOLVE ONE TABLET BY MOUTH EVERY 6 HOURS NEEDED FOR NAUSEA WITH MIGRAINES Oral for 3 Days Active PROBLEMS Problem Type ICD Code Onset Dates Problem Status W/U Status Risk SNOMED Code Notes Problem Other obesity due to excess calories (E66.09) Active confirmed 998163237 Problem Encounter for screening for lipoid disorders (Z13.220) Active confirmed Lipid screening (677167800) Problem Adult general medical exam (Z00.00) Active confirmed Adult health examination (087111487) Problem Diabetes mellitus screening (Z13.1) Active confirmed Diabetes mellitus screening (217845657) Problem Body mass index [BMI] 32.0-32.9, adult (Z68.32) Active confirmed 646051122 Problem Migraine without aura and without status migrainosus, not intractable (G43.009) Active confirmed 698329140 Problem Overweight (BMI 25.0-29.9) (E66.3) Active confirmed Overweight (696922653) Problem Avitaminosis D (E55.9) Active confirmed Avitaminosis D (16411349) Problem Encounter for screening for endocrine disorder (Z13.29) Active confirmed Endocrine/metab o lic screening (858377219) VITAL SIGNS Heart Rate 77 /min 07/15/2024 Blood pressure diastolic 76 mm Hg 07/15/2024 Oximetry 99 % 07/15/2024 Height 67 in 07/15/2024 Blood pressure systolic 112 mm Hg 07/15/2024 Weight 156 lbs 07/15/2024 BMI 24.43 kg/m2 07/15/2024 Encounters Encounter Location Date Provider Diagnosis [place] [address] 11/17/2023 CISCO OWENS BMI 25.0-25.9,adult Z68.25 ; Overweight (BMI 25.0-29.9) E66.3 ; Dietary counseling and surveillance Z71.3 and Migraine without aura and without status migrainosus, not intractable G43.009 [place] [address] 11/23/2023 CISCO OWENS [place] [address] 12/13/20[place] [address] 09/20/2023 CISCO OWENS Overweight (BMI 25.0-29.9) E66.3 ; BMI 25.0-25.9,adult Z68.25 ; Dietary counseling and surveillance Z71.3 and Migraine without aura and without status migrainosus, not intractable G43.009 [facility] [address] [address] 11/17/2023 CISCO BORHOT BMI 25.0-25.9,adult Z68.25 ; Overweight (BMI 25.0-29.9) E66.3 ; Dietary counseling and surveillance Z71.3 and Migraine without aura and without status migrainosus, not intractable G43.009 [facility] [address] [address] 01/19/2024 CISCO BORHOT BMI 25.0-25.9,adult Z68.25 ; Overweight (BMI 25.0-29.9) E66.3 ; Dietary counseling and surveillance Z71.3 and Migraine without aura and without status migrainosus, not intractable G43.009 [facility] [address] [address] 03/27/2024 CISCO BORHOT BMI 25.0-25.9,adult Z68.25 ; Overweight (BMI 25.0-29.9) E66.3 ; Dietary counseling and surveillance Z71.3 and Migraine without aura and without status migrainosus, not intractable G43.009 [place] [address] [address] 07/15/2024 CISCO [place] BMI 24.0-24.9, adult Z68.24 ; Dietary counseling and surveillance Z71.3 and Migraine without aura and without status migrainosus, not intractable G43.009 [place] [address] [address] 11/15/2023 [facility] [address] [place] [address] 12/21/2023 CISCO [place]HOT [address] 12/22/2023 CISCO BORHOT [address] [facility] [address] 01/22/2024 CISCO BORHOT [address] 01/22/2024 CICSO BORHOT [address] [address] 07/14/2024 CISCO OWENS ASSESSMENTS Encounter Date Diagnosis Assessment Notes Treatment Notes Treatment Clinical Notes Section Notes 09/20/2023 BMI 25.0-25.9,adult (ICD-10 - Z68.25) #Weight [...] track activity level. Consider using apps like [employer], myfitPurchextpal, lose it, stick as needed for self-monitoring and weight management. Consider group exercises. Consider hiring a geriatric personal care aide. Regular exercise is ocamp[place] to sustainable health [...] counseling and psychiatry and Dr Patterson at [facility] [employer]. We would like to cover regular topics [...] software and direct typing Please excuse inadvertent pediatric psychologist or typing errors, or uncorrected word substitutions Although every attempt has been made by the provider to proofread this document, occasional misspellings and typographical errors may still be present Due to the previous pandemic, and the use of personal protective equipment (PPE) This may decrease voice recognition accuracy Inadvertent pediatric psychologist errors may occur 09/20/2023 Overweight (BMI 25.0-29.9) [...] track activity level. Consider using apps like [employer], myDrugCostspal, lose it, stick as needed for self-monitoring and weight management. Consider group exercises. Consider hiring a geriatric personal care aide. Regular exercise is oc[place] to sustainable health [...] counseling and psychiatry and Dr Patterson at [facility] [employer]. We would like to cover regular topics [...] software and direct typing Please excuse inadvertent pediatric psychologist or typing errors, or uncorrected word substitutions Although every attempt has been made by the provider to proofread this document, occasional misspellings and typographical errors may still be present Due to the previous pandemic, and the use of personal protective equipment (PPE) This may decrease voice recognition accuracy Inadvertent pediatric psychologist errors may occur 11/17/2023 BMI 25.0-25.9,adult (ICD-10 [...] track activity level. Consider using apps like [employer], myDrugCostspal, lose it, stick as needed for self-monitoring and weight management. Consider group exercises. Consider hiring a geriatric personal care aide. Regular exercise is [place] to sustainable health [...] counseling and psychiatry and Dr Patterson at [facility] [employer]. We would like to cover regular topics [...] software and direct typing Please excuse inadvertent pediatric psychologist or typing errors, or uncorrected word substitutions Although every attempt has been made by the provider to proofread this document, occasional misspellings and typographical errors may still be present Due to the previous pandemic, and the use of personal protective equipment (PPE) This may decrease voice recognition accuracy Inadvertent pediatric psychologist errors may occur 11/17/2023 BMI 25.0-25.9,adult (ICD-10 [...] track activity level. Consider using apps like [employer], myDrugCostspal, lose it, stick as needed for self-monitoring and weight management. Consider group exercises. Consider hiring a geriatric personal care aide. Regular exercise is oc[place] to sustainable health [...] counseling and psychiatry and Dr Patterson at [facility] [employer]. We would like to cover regular topics [...] software and direct typing Please excuse inadvertent pediatric psychologist or typing errors, or uncorrected word substitutions Although every attempt has been made by the provider to proofread this document, occasional misspellings and typographical errors may still be present Due to the previous pandemic, and the use of personal protective equipment (PPE) This may decrease voice recognition accuracy Inadvertent pediatric psychologist errors may occur 01/19/2024 BMI 25.0-25.9,adult (ICD-10 [...] track activity level. Consider using apps like [employer], myfitPurchextpal, lose it, stick as needed for self-monitoring and weight management. Consider group exercises. Consider hiring a geriatric personal care aide. Regular exercise is oc[place] to sustainable health [...] counseling and psychiatry and Dr Patterson at [facility] [employer]. We would like to cover regular topics [...] software and direct typing Please excuse inadvertent pediatric psychologist or typing errors, or uncorrected word substitutions Although every attempt has been made by the provider to proofread this document, occasional misspellings and typographical errors may still be present Due to the previous pandemic, and the use of personal protective equipment (PPE) This may decrease voice recognition accuracy Inadvertent pediatric psychologist errors may occur 03/27/2024 BMI 25.0-25.9,adult (ICD-10 [...] software and direct typing Please excuse inadvertent pediatric psychologist or typing errors, or uncorrected word substitutions Although every attempt has been made by the provider to proofread this document, occasional misspellings and typographical errors may still be present Due to the previous pandemic, and the use of personal protective equipment (PPE) This may decrease voice recognition accuracy Inadvertent pediatric psychologist errors may occur 07/15/2024 BMI 24.0-24.9, adult (ICD-10 - Z68.24) [...] software and direct typing Please excuse inadvertent pediatric psychologist or typing errors, or uncorrected word substitutions Although every attempt has been made by the provider to proofread this document, occasional misspellings and typographical errors may still be present Due to the previous pandemic, and the use of personal protective equipment (PPE) This may decrease voice recognition accuracy Inadvertent pediatric psychologist errors may occur 03/27/2024 Overweight (BMI 25.0-29.9) [...] software and direct typing Please excuse inadvertent pediatric psychologist or typing errors, or uncorrected word substitutions Although every attempt has been made by the provider to proofread this document, occasional misspellings and typographical errors may still be present Due to the previous pandemic, and the use of personal protective equipment (PPE) This may decrease voice recognition accuracy Inadvertent pediatric psychologist errors may occur 07/15/2024 Dietary counseling and [...] software and direct typing Please excuse inadvertent pediatric psychologist or typing errors, or uncorrected word substitutions Although every attempt has been made by the provider to proofread this document, occasional misspellings and typographical errors may still be present Due to the previous pandemic, and the use of personal protective equipment (PPE) This may decrease voice recognition accuracy Inadvertent pediatric psychologist errors may occur 01/19/2024 Overweight (BMI 25.0-29.9) (ICD-10 - E66.3) #Weight Management 01/19/2024 thriving Will send 5 mg dose to [facility] [...] track activity level. Consider using apps like [employer], myDrugCostspal, lose it, stick as needed for self-monitoring and weight management. Consider group exercises. Consider hiring a geriatric personal care aide. Regular exercise is ocamp[place] to sustainable health [...] counseling and psychiatry and Dr Patterson at [facility] [employer]. We would like to cover regular topics [...] software and direct typing Please excuse inadvertent pediatric psychologist or typing errors, or uncorrected word substitutions Although every attempt has been made by the provider to proofread this document, occasional misspellings and typographical errors may still be present Due to the previous pandemic, and the use of personal protective equipment (PPE) This may decrease voice recognition accuracy Inadvertent pediatric psychologist errors may occur 11/17/2023 Overweight (BMI 25.0-29.9) [...] track activity level. Consider using apps like [employer], myfitnesspal, lose it, stick as needed for self-monitoring and weight management. Consider group exercises. Consider hiring a geriatric personal care aide. Regular exercise is ocamp[place] to sustainable health [...] counseling and psychiatry and Dr Patterson at [facility] [employer]. We would like to cover regular topics [...] software and direct typing Please excuse inadvertent pediatric psychologist or typing errors, or uncorrected word substitutions Although every attempt has been made by the provider to proofread this document, occasional misspellings and typographical errors may still be present Due to the previous pandemic, and the use of personal protective equipment (PPE) This may decrease voice recognition accuracy Inadvertent pediatric psychologist errors may occur 11/17/2023 Overweight (BMI 25.0-29.9) [...] track activity level. Consider using apps like [employer], mySpecpagepal, lose it, stick as needed for self-monitoring and weight management. Consider group exercises. Consider hiring a geriatric personal care aide. Regular exercise is oc[place] to sustainable health [...] counseling and psychiatry and Dr Patterson at [facility] [employer]. We would like to cover regular topics [...] software and direct typing Please excuse inadvertent pediatric psychologist or typing errors, or uncorrected word substitutions Although every attempt has been made by the provider to proofread this document, occasional misspellings and typographical errors may still be present Due to the previous pandemic, and the use of personal protective equipment (PPE) This may decrease voice recognition accuracy Inadvertent pediatric psychologist errors may occur 09/20/2023 Dietary counseling and [...] track activity level. Consider using apps like [employer], [employer] MatefitPurchextpal, lose it, stick as needed for self-monitoring and weight management. Consider group exercises. Consider hiring a geriatric personal care aide. Regular exercise is oc[place] to sustainable health [...] counseling and psychiatry and Dr Patterson at [facility] [employer]. We would like to cover regular topics [...] software and direct typing Please excuse inadvertent pediatric psychologist or typing errors, or uncorrected word substitutions Although every attempt has been made by the provider to proofread this document, occasional misspellings and typographical errors may still be present Due to the previous pandemic, and the use of personal protective equipment (PPE) This may decrease voice recognition accuracy Inadvertent pediatric psychologist errors may occur 09/20/2023 Migraine without aura [...] track activity level. Consider using apps like [employer], myDrugCostspal, lose it, stick as needed for self-monitoring and weight management. Consider group exercises. Consider hiring a geriatric personal care aide. Regular exercise is [place] to sustainable health [...] counseling and psychiatry and Dr Patterson at [facility] [employer]. We would like to cover regular topics [...] software and direct typing Please excuse inadvertent pediatric psychologist or typing errors, or uncorrected word substitutions Although every attempt has been made by the provider to proofread this document, occasional misspellings and typographical errors may still be present Due to the previous pandemic, and the use of personal protective equipment (PPE) This may decrease voice recognition accuracy Inadvertent pediatric psychologist errors may occur 11/17/2023 Dietary counseling and [...] track activity level. Consider using apps like [employer], [employer] MatefitPurchextpal, lose it, stick as needed for self-monitoring and weight management. Consider group exercises. Consider hiring a geriatric personal care aide. Regular exercise is oc[place] to sustainable health [...] counseling and psychiatry and Dr Patterson at [facility] [employer]. We would like to cover regular topics [...] software and direct typing Please excuse inadvertent pediatric psychologist or typing errors, or uncorrected word substitutions Although every attempt has been made by the provider to proofread this document, occasional misspellings and typographical errors may still be present Due to the previous pandemic, and the use of personal protective equipment (PPE) This may decrease voice recognition accuracy Inadvertent pediatric psychologist errors may occur 11/17/2023 Dietary counseling and [...] track activity level. Consider using apps like [employer], myDrugCostspal, lose it, stick as needed for self-monitoring and weight management. Consider group exercises. Consider hiring a geriatric personal care aide. Regular exercise is oc[place] to sustainable health [...] counseling and psychiatry and Dr Patterson at [facility] [employer]. We would like to cover regular topics [...] software and direct typing Please excuse inadvertent pediatric psychologist or typing errors, or uncorrected word substitutions Although every attempt has been made by the provider to proofread this document, occasional misspellings and typographical errors may still be present Due to the previous pandemic, and the use of personal protective equipment (PPE) This may decrease voice recognition accuracy Inadvertent pediatric psychologist errors may occur 01/19/2024 Dietary counseling and [...] track activity level. Consider using apps like [employer], myfitnesspal, lose it, stick as needed for self-monitoring and weight management. Consider group exercises. Consider hiring a geriatric personal care aide. Regular exercise is oc[place] to sustainable health [...] counseling and psychiatry and Dr Patterson at [facility] [employer]. We would like to cover regular topics [...] software and direct typing Please excuse inadvertent pediatric psychologist or typing errors, or uncorrected word substitutions Although every attempt has been made by the provider to proofread this document, occasional misspellings and typographical errors may still be present Due to the previous pandemic, and the use of personal protective equipment (PPE) This may decrease voice recognition accuracy Inadvertent pediatric psychologist errors may occur 03/27/2024 Dietary counseling and [...] software and direct typing Please excuse inadvertent pediatric psychologist or typing errors, or uncorrected word substitutions Although every attempt has been made by the provider to proofread this document, occasional misspellings and typographical errors may still be present Due to the previous pandemic, and the use of personal protective equipment (PPE) This may decrease voice recognition accuracy Inadvertent pediatric psychologist errors may occur 07/15/2024 Migraine without aura [...] software and direct typing Please excuse inadvertent pediatric psychologist or typing errors, or uncorrected word substitutions Although every attempt has been made by the provider to proofread this document, occasional misspellings and typographical errors may still be present Due to the previous pandemic, and the use of personal protective equipment (PPE) This may decrease voice recognition accuracy Inadvertent pediatric psychologist errors may occur 03/27/2024 Migraine without aura [...] software and direct typing Please excuse inadvertent pediatric psychologist or typing errors, or uncorrected word substitutions Although every attempt has been made by the provider to proofread this document, occasional misspellings and typographical errors may still be present Due to the previous pandemic, and the use of personal protective equipment (PPE) This may decrease voice recognition accuracy Inadvertent pediatric psychologist errors may occur 01/19/2024 Migraine without aura and without status migrainosus, not intractable (ICD-10 - G43.009) #Weight Management 01/19/2024 thrrandy Will send 5 mg dose to [facility] direct vieyra Discussed importance of protein consumption [...] track activity level. Consider using apps like [employer], myDrugCostspal, lose it, stick as needed for self-monitoring and weight management. Consider group exercises. Consider hiring a geriatric personal care aide. Regular exercise is oc[place] to sustainable health [...] counseling and psychiatry and Dr Patterson at [facility] [employer]. We would like to cover regular topics [...] software and direct typing Please excuse inadvertent pediatric psychologist or typing errors, or uncorrected word substitutions Although every attempt has been made by the provider to proofread this document, occasional misspellings and typographical errors may still be present Due to the previous pandemic, and the use of personal protective equipment (PPE) This may decrease voice recognition accuracy Inadvertent pediatric psychologist errors may occur 11/17/2023 Migraine without aura [...] track activity level. Consider using apps like [employer], myfitnesspal, lose it, stick as needed for self-monitoring and weight management. Consider group exercises. Consider hiring a geriatric personal care aide. Regular exercise is oc[place] to sustainable health [...] counseling and psychiatry and Dr Patterson at [facility] [employer]. We would like to cover regular topics [...] software and direct typing Please excuse inadvertent pediatric psychologist or typing errors, or uncorrected word substitutions Although every attempt has been made by the provider to proofread this document, occasional misspellings and typographical errors may still be present Due to the previous pandemic, and the use of personal protective equipment (PPE) This may decrease voice recognition accuracy Inadvertent pediatric psychologist errors may occur 11/17/2023 Migraine without aura [...] track activity level. Consider using apps like [employer], myDrugCostspal, lose it, stick as needed for self-monitoring and weight management. Consider group exercises. Consider hiring a geriatric personal care aide. Regular exercise is oc[place] to sustainable health [...] counseling and psychiatry and Dr Patterson at [facility] [employer]. We would like to cover regular topics [...] software and direct typing Please excuse inadvertent pediatric psychologist or typing errors, or uncorrected word substitutions Although every attempt has been made by the provider to proofread this document, occasional misspellings and typographical errors may still be present Due to the previous pandemic, and the use of personal protective equipment (PPE) This may decrease voice recognition accuracy Inadvertent pediatric psychologist errors may occur PLAN OF TREATMENT Pending Test Test Name Order Date LIPID PANEL, STANDARD 07/15/2024 COMPREHENSIVE METABOLIC PANEL 07/15/2024 CBC (INCLUDES DIFF/PLT) 07/15/2024 URINALYSIS, COMPLETE 07/15/2024 HEMOGLOBIN A1c 07/15/2024 TSH W/REFLEX TO FT4 07/15/2024 VITAMIN D,25-OH,TOTAL,IA 07/15/2024 Next Appt Details Provider Name:CISCO OWENS, 08/29/2024 11:00:00 AM, [address], [address], [place], [address], Insurance Providers Payer Name Payer Address Payer Phone Subscriber Number Group Number Insured Name Patient Relationship to Insured Coverage Start Date Coverage End Date [employer] Admin [address] [address] [place] [address] [id number] Shira Allen Self - patient is the [...]
[2024-08-08 07:49] LABS: MANUAL DIFF FLAG NO
[2024-08-08 07:57] LABS: Basophils Absolute Auto 0.1 X10*3/uL (0.0-0.2); Eosinophils Absolute Auto 0.3 X10*3/uL (0.0-0.4); Eosinophils Percent Auto 4.8 % (0-4); Hemoglobin 14.9 g/dl (12.0-16.0); Lymphocytes Absolute Auto 1.7 X10*3/uL (1.2-4.9); Lymphocytes Percent Auto 26.8 % (20-40); Mean Corpuscular HGB Conc 33.9 g/dl (31.0-35.0); Mean Corpuscular Volume 88.5 fL (80.0-98.0); Mean Platelet Volume 9.5 fL (9.4-12.3); Monocytes Absolute Auto 0.4 X10*3/uL (0.1-1.2); Monocytes Percent Auto 6.9 % (2-11); Neutrophils Absolute Auto 3.8 x10*3/uL (2.0-8.3); Neutrophils Percent Auto 60.5 % (45-73); Platelet Count 289 X10*3/uL (160-400); Red Blood Count 4.97 X10*6/uL (4.20-5.50); Red Cell Distribution Width 12.8 % (11.0-16.0); White Blood Count 6.2 X10*3/uL (4.8-10.8)
[2024-08-08 07:58] LABS: Appearance Urine Clear; Color Urine Dark Yellow; Glucose Urine UA Negative (Negative); Leukocyte Esterase Urine Negative (Negative); Nitrite Urine Negative (Negative); PH 5.5 (5.0-9.0); Specific Gravity - Urine >= 1.030 (1.005-1.025); Urine Blood Negative (Negative); Urine Ketones Trace mg/dL (Negative); Urine Protein Trace mg/dL (Neg-Trace)
[2024-08-08 08:04] LABS: Estimated Average Glucose 91 mg/dL; Hemoglobin A1C 114.5779 umol/L; Hemoglobin A1c % 4.8 % (<6.0); Total Hemoglobin (HGBA1C) 3916.5032 umol/L
[2024-08-08 08:25] LABS: Alanine Aminotransferase 25 U/L (0-31); Albumin Level 4.2 g/dL (3.5-5.0); Alkaline Phosphatase 53 U/L (39-117); Anion Gap 10 (12-20); Aspartate Amino Transferase 23 U/L (5-31); Bilirubin Total 0.4 mg/dL (0.0-1.0); Blood Urea Nitrogen 30 mg/dL (9-16); Calcium 9.2 mg/dL (8.4-10.2); Carbon Dioxide 26 mmol/L (22-29); Chloride 111 mmol/L (96-108); Cholesterol 187 mg/dL (<200); Estimated Glomerular Filt Rate > 60; Glucose Random 93 mg/dL (60-115); HDL Cholesterol 62 mg/dL (>40); LDL Cholesterol Calculated 113 mg/dL (<100); Sodium 143 mmol/L (135-145); Total Protein 6.6 g/dL (6.5-8.0); Triglycerides 61 mg/dL (<150)
[2024-08-08 08:39] LABS: TSH reflex Free T4 3.04 uIU/mL (0.32-4.0); Vitamin D 25-OH Total 51.1 ng/mL (>30)
== END 2024-08-08 07:34 | disposition home or self-care (01) ==
LOC: HO.LAB 07:33
PROVIDERS: PCP Internal Medicine; Visit Provider Nurse Practitioner Acute Care
DX: Z00.00 Encounter for general adult medical examination without abnormal findings (principal); Z13.220 Encounter for screening for lipoid disorders; Z13.1 Encounter for screening for diabetes mellitus; E55.9 Vitamin D deficiency, unspecified; Z13.29 Encounter for screening for other suspected endocrine disorder; Z13.6 Encounter for screening for cardiovascular disorders
CPT/HCPCS: 36415; 80053; 80061; 81003; 82306; 83036; 84443; 85025

== ENCOUNTER 2025-01-29 09:37 | Outpatient (REF) | payer OTHER, SELFPAY ==
[2025-01-29 10:35] LABS: Appearance Urine Clear; Glucose Urine UA Negative (Negative); PH 5.0 (5.0-9.0); Specific Gravity - Urine 1.020 (1.005-1.025)
--- OUTSIDE RECORDS SUMMARY | 2025-01-29 10:35 | XMS_ITS | Patient Health Record ---
Author Organization [facility] Address [address] [place] [address] Care Team Providers Care Farm Adviser Name Role Phone CISCO OWENS Unavailable [phone] Allergies Allergen (clinical drug ingredient) Drug/Non Drug Allergy documented on EMR Reaction Allergy Type Onset Date Status ciprofloxacin Cipro Unknown Drug Allergy Act brock promethazine Phenergan anaphylaxis Drug Allergy Ac tive metoclopramide Reglan anaphylaxis Drug Allergy Active scopolamine Scopolamine anaphylaxis Drug Allergy A ctive Reason For Referral No Information Medications Medication SIG (Take, Route, Frequency, Duration) Notes Start Date End Date Status SUMAtriptan Succinate 100 MG TAKE 1 TABLET AT ONSET OF HEADACHE. MAY TAKE SECOND DOSE AFTER 2 HOURS IF NEEDED Oral; Duration: 30 Days Active Lidocaine 5 % APPLY ONE PATCH TOPI BRITTANY DAILY TO MOST PAINFUL AREA FOR UP TO 12 HOURS NEEDED. THEN REMOVE FOR 12 HOURS External; Duration: 30 Days Active Polyethylene Glycol 3350 17 GM/SCOOP MIX 1 CAPFUL (17G) WITH 8 OUNCES OF FLUID AND TAKE BY MOUTH ONCE A DAY; Duration: 30 Active MiraLax 17 GM 1 packet mixed with 8 ounces of fluid Orally Once a day; Duration: 30 days Active Nurtec 75 MG DISSOLVE ONE TABLET UNDER TONGUE EVERY OTHER DAY NEEDED FOR MIGRAINE HEADACHE Oral; Duration: 30 Days Active Ondansetron 4 MG DISSOLVE ONE TABLET BY MOUTH EVERY 6 HOURS NEEDED FOR NAUSEA WITH MIGRAINES Oral; Duration: 3 Days Active Fluticasone Propionate 50 MCG/ACT ADMINISTER 1 SPRAY NASALLY DAILY Nasal; Duration: 60 Days Active Zepbound 5 MG/0.5ML 5mg Subcutaneous wee kly; Duration: 30 days Active Problems Problem Type SNOMED Code ICD Code Onset Dates Problem Status W/U Status Risk Notes Problem Obesity due to excess calories (459258517) Other obesity due to excess calories (E66.09) Active confirmed Problem Lipid screening (814794721) Encounter for screening for lipoid disorders (Z13.220) Active confirmed Problem Adult health examination (794755451) Adult general medical exam (Z00.00) Active confirmed Problem Diabetes mellitus screening (041699120) Diabetes mellitus screening (Z13.1) Active confirmed Problem Body mass index 30.00 to 34.99 (381960602482903 ) Body mass index [BMI] 32.0-32.9, adult (Z68.32) Active confirmed Problem Migraine without aura, not refractory (090693130) Migraine without aura and without status migrainosus, not intractable (G43.009) Active confirmed Problem Overweight (425140792) Overweight (BMI 25.0-29.9) (E66.3) Active confirmed Problem Avitaminosis D (65823610) Avitaminosis D (E55.9) Active confirmed Problem Endocrine/[place] screening (857883174) Encounter for screening for endocrine disorder (Z13.29) Active confirmed Vital Signs Heart Rate 65 /min 12/04/2024 Oximetry 99 % 12/04/2024 Blood pressure diastolic 90 mm Hg 12/04/2024 Height 67 in 12/04/2024 Blood pressure systolic 132 mm Hg 12/04/2024 Weight 154.0 lbs 12/04/2024 BMI 24.12 kg/m2 12/04/2024 Encounters Encounter Location Date Provider Diagnosis [facility] [address] [address] 03/27/2024 CISCO GRACIELA BMI 25.0-25.9,adult Z68.25 ; Overweight (BMI 25.0-29.9) E66.3 ; Dietary counseling and surveillance Z71.3 and Migraine without aura and without status migrainosus, not intractable G43.009 [facility] [address] [address] 07/15/2024 CISCO GRACIELA BMI 24.0-24.9, adult Z68.24 ; Dietary counseling and surveillance Z71.3 and Migraine without aura and without status migrainosus, not intractable G43.009 [facility] [address] [address] 08/29/2024 CISCO OWENS BMI 24.0-24.9, adult Z68.24 ; Migraine without aura and without status migrainosus, not intractable G43.009 and Dietary counseling and surveillance Z71.3 [facility] [address] [facility] [address] [place] [address] 10/23/2024 CISCO OWENS Migraine without aur a and without status migrainosus, not intractable G43.009 ; BMI 24.0-24.9, adult Z68.24 ; Dietary counseling and surveillance Z71.3 and Encounter for examination of blood pressure without abnormal findings Z01.30 [facility] [address] [facility] [address] [place] [address] 12/04/2024 CISCO OWENS Migraine without aur a and without status migrainosus, not intractable G43.009 ; BMI 24.0-24.9, adult Z68.24 ; Dietary counseling and surveillance Z71.3 and Encounter for examination of blood pressure without abnormal findings Z01.30 [facility] [address] [facility] [address] [place] [address] 07/14/2024 CISCO MCCALLT Assessments Encounter Date Diagnosis (ICD Code) Assessment Notes Treatment Notes Treatment Clinical Notes Section Notes 03/27/2024 BMI 25.0-25.9,adult (ICD-10 - Z68.25) #Weight Management 03/27/2024 thriving cont 5mng dosing now utilizing [employer] pay Total time spent today was 30 [...] software and direct typing Please excuse inadvertent scada engineer or typing errors, or uncorrected word substitutions Although every attempt has been made by the provider to proofread this document, occasional misspellings and typographical errors may still be present Due to the previous pandemic, and the use of personal protective equipment (PPE) This may decrease voice recognition accuracy Inadvertent scada engineer errors may occur 07/15/2024 BMI 24.0-24.9, adult [...] software and direct typing Please excuse inadvertent scada engineer or typing errors, or uncorrected word substitutions Although every attempt has been made by the provider to proofread this document, occasional misspellings and typographical errors may still be present Due to the previous pandemic, and the use of personal protective equipment (PPE) This may decrease voice recognition accuracy Inadvertent scada engineer errors may occur 08/29/2024 Migraine without aura and without status migrainosus, not intractable (ICD-10 - G43.009) #Weight Management 08/29/2024 Labs are reviewed thriving cont 5mg dosing, q2-3 weeks Total [...] software and direct typing Please excuse inadvertent scada engineer or typing errors, or uncorrected word substitutions Although every attempt has been made by the provider to proofread this document, occasional misspellings and typographical errors may still be present Due to the previous pandemic, and the use of personal protective equipment (PPE) This may decrease voice recognition accuracy Inadvertent scada engineer errors may occur 08/29/2024 BMI 24.0-24.9, adult (ICD-10 - Z68.24) #Weight Management 08/29/2024 Labs are reviewed thriving cont 5mg dosing, q2-3 weeks Total [...] software and direct typing Please excuse inadvertent scada engineer or typing errors, or uncorrected word substitutions Although every attempt has been made by the provider to proofread this document, occasional misspellings and typographical errors may still be present Due to the previous pandemic, and the use of personal protective equipment (PPE) This may decrease voice recognition accuracy Inadvertent scada engineer errors may occur 10/23/2024 Migraine without aura and without status migrainosus, not intractable (ICD-10 - G43.009) #Weight Management 10/23/2024 Stable body composition thriving cont 5mg dosing, q2-3 weeks Total [...] software and direct typing Please excuse inadvertent scada engineer or typing errors, or uncorrected word substitutions Although every attempt has been made by the provider to proofread this document, occasional misspellings and typographical errors may still be present Due to the previous pandemic, and the use of personal protective equipment (PPE) This may decrease voice recognition accuracy Inadvertent scada engineer errors may occur 10/23/2024 BMI 24.0-24.9, adult (ICD-10 - Z68.24) #Weight Management 10/23/2024 Stable body composition thriving cont 5mg dosing, q2-3 weeks Total [...] software and direct typing Please excuse inadvertent scada engineer or typing errors, or uncorrected word substitutions Although every attempt has been made by the provider to proofread this document, occasional misspellings and typographical errors may still be present Due to the previous pandemic, and the use of personal protective equipment (PPE) This may decrease voice recognition accuracy Inadvertent scada engineer errors may occur 12/04/2024 Migraine without aura and without status migrainosus, not intractable (ICD-10 - G43.009) #Weight Management 12/04/2024 Stable body composition thriving cont 5mg dosing, q2-3 weeks Total [...] software and direct typing Please excuse inadvertent scada engineer or typing errors, or uncorrected word substitutions Although every attempt has been made by the provider to proofread this document, occasional misspellings and typographical errors may still be present Due to the previous pandemic, and the use of personal protective equipment (PPE) This may decrease voice recognition accuracy Inadvertent scada engineer errors may occur 12/04/2024 BMI 24.0-24.9, adult (ICD-10 - Z68.24) #Weight Management 12/04/2024 Stable body composition thriving cont 5mg dosing, q2-3 weeks Total [...] software and direct typing Please excuse inadvertent scada engineer or typing errors, or uncorrected word substitutions Although every attempt has been made by the provider to proofread this document, occasional misspellings and typographical errors may still be present Due to the previous pandemic, and the use of personal protective equipment (PPE) This may decrease voice recognition accuracy Inadvertent scada engineer errors may occur 10/23/2024 Dietary counseling and surveillance (ICD-10 - Z71.3) #Weight Management 10/23/2024 Stable body composition thriving cont 5mg dosing, q2-3 weeks Total [...] software and direct typing Please excuse inadvertent scada engineer or typing errors, or uncorrected word substitutions Although every attempt has been made by the provider to proofread this document, occasional misspellings and typographical errors may still be present Due to the previous pandemic, and the use of personal protective equipment (PPE) This may decrease voice recognition accuracy Inadvertent scada engineer errors may occur 08/29/2024 Dietary counseling and surveillance (ICD-10 - Z71.3) #Weight Management 08/29/2024 Labs are reviewed thriving cont 5mg dosing, q2-3 weeks Total [...] software and direct typing Please excuse inadvertent scada engineer or typing errors, or uncorrected word substitutions Although every attempt has been made by the provider to proofread this document, occasional misspellings and typographical errors may still be present Due to the previous pandemic, and the use of personal protective equipment (PPE) This may decrease voice recognition accuracy Inadvertent scada engineer errors may occur 03/27/2024 Overweight (BMI 25.0-29.9) (ICD-10 - E66.3) #Weight Management 03/27/2024 thriving cont 5mng dosing now utilizing [employer] pay Total time spent today was 30 [...] software and direct typing Please excuse inadvertent scada engineer or typing errors, or uncorrected word substitutions Although every attempt has been made by the provider to proofread this document, occasional misspellings and typographical errors may still be present Due to the previous pandemic, and the use of personal protective equipment (PPE) This may decrease voice recognition accuracy Inadvertent scada engineer errors may occur 07/15/2024 Dietary counseling and [...] software and direct typing Please excuse inadvertent scada engineer or typing errors, or uncorrected word substitutions Although every attempt has been made by the provider to proofread this document, occasional misspellings and typographical errors may still be present Due to the previous pandemic, and the use of personal protective equipment (PPE) This may decrease voice recognition accuracy Inadvertent scada engineer errors may occur 03/27/2024 Dietary counseling and surveillance (ICD-10 - Z71.3) #Weight Management 03/27/2024 thriving cont 5mng dosing now utilizing [employer] pay Total time spent today was 30 [...] software and direct typing Please excuse inadvertent scada engineer or typing errors, or uncorrected word substitutions Although every attempt has been made by the provider to proofread this document, occasional misspellings and typographical errors may still be present Due to the previous pandemic, and the use of personal protective equipment (PPE) This may decrease voice recognition accuracy Inadvertent scada engineer errors may occur 07/15/2024 Migraine without aura [...] software and direct typing Please excuse inadvertent scada engineer or typing errors, or uncorrected word substitutions Although every attempt has been made by the provider to proofread this document, occasional misspellings and typographical errors may still be present Due to the previous pandemic, and the use of personal protective equipment (PPE) This may decrease voice recognition accuracy Inadvertent scada engineer errors may occur 12/04/2024 Dietary counseling and surveillance (ICD-10 - Z71.3) #Weight Management 12/04/2024 Stable body composition thriving cont 5mg dosing, q2-3 weeks Total [...] software and direct typing Please excuse inadvertent scada engineer or typing errors, or uncorrected word substitutions Although every attempt has been made by the provider to proofread this document, occasional misspellings and typographical errors may still be present Due to the previous pandemic, and the use of personal protective equipment (PPE) This may decrease voice recognition accuracy Inadvertent scada engineer errors may occur 10/23/2024 Encounter for examination of blood pressure without abnormal findings (ICD-10 - Z01.30) #Weight Management 10/23/2024 Stable body composition thriving cont 5mg dosing, q2-3 weeks Total [...] software and direct typing Please excuse inadvertent scada engineer or typing errors, or uncorrected word substitutions Although every attempt has been made by the provider to proofread this document, occasional misspellings and typographical errors may still be present Due to the previous pandemic, and the use of personal protective equipment (PPE) This may decrease voice recognition accuracy Inadvertent scada engineer errors may occur 12/04/2024 Encounter for examination of blood pressure without abnormal findings (ICD-10 - Z01.30) #Weight Management 12/04/2024 Stable body composition thriving cont 5mg dosing, q2-3 weeks Total [...] software and direct typing Please excuse inadvertent scada engineer or typing errors, or uncorrected word substitutions Although every attempt has been made by the provider to proofread this document, occasional misspellings and typographical errors may still be present Due to the previous pandemic, and the use of personal protective equipment (PPE) This may decrease voice recognition accuracy Inadvertent scada engineer errors may occur 03/27/2024 Migraine without aura and without status migrainosus, not intractable (ICD-10 - G43.009) #Weight Management 03/27/2024 thriving cont 5mng dosing now utilizing [employer] pay Total time spent today was 30 [...] software and direct typing Please excuse inadvertent scada engineer or typing errors, or uncorrected word substitutions Although every attempt has been made by the provider to proofread this document, occasional misspellings and typographical errors may still be present Due to the previous pandemic, and the use of personal protective equipment (PPE) This may decrease voice recognition accuracy Inadvertent scada engineer errors may occur Plan Of Treatment Pending Test Test Name Order Date LIPID PANEL, STANDARD 07/15/2024 COMPREHENSIVE METABOLIC PANEL 07/15/2024 CBC (INCLUDES DIFF/PLT) 07/15/2024 URINALYSIS, COMPLETE 07/15/2024 HEMOGLOBIN A1c 07/15/2024 TSH W/REFLEX TO FT4 07/15/2024 VITAMIN D,25-OH,TOTAL,IA 07/15/2024 Next Appt Details Provider Name:CISCO OWENS, 01/30/2025 10:30:00 AM, [address], [facility] [address], [place], [address], Insurance Providers Payer Name Payer Address Payer Phone Subscriber Number Group Number Insured Name Patient Relationship to Insured Coverage Start Date Coverage End Date [place] [address] [address] [place] [address] [id number] Shira Allen Self - patient is the insured Medical (General) History Medical History History ICD Code hyperlipidemia migraine headaches obesity asthma liver adenoma add lumbar radiculopathy lumber facet joint syndrome disc herination high cholesterol anxiety hearing loss Surgical History Surgery Date(Month/Year) RT shoulder slap procedure 2011 Lap [place] 1996 Total Hysterectomy 2017 Tympanostomy x13 as a child Adnoidectomy as a child
== END 2025-01-29 09:38 | disposition home or self-care (01) ==
LOC: HO.LAB 09:37
PROVIDERS: PCP Internal Medicine; Visit Provider Advanced Practice Midwife
DX: R39.9 Unspecified symptoms and signs involving the genitourinary system (principal)
CPT/HCPCS: 81003; 87086